=== PATIENT | female | born 1945 | race Caucasian/White ===

== ENCOUNTER 2018-08-20 06:27 | Observation (INO) | payer MEDICARE, OTHER ==
[2018-08-19 13:23] LABS: BASOPHILS # (AUTO) 0.1 (0.0-0.1); BASOPHILS % 0.4 % (0.0-1.0); EOSINOPHILS % 0.3 % (0.0-6.0); HEMATOCRIT 40.3 % (34.2-44.1); HEMOGLOBIN 14.4 g/dL (12.0-16.0); LYMPHOCYTES # (AUTO) 0.9 (1.0-3.2); LYMPHOCYTES % 8.2 % (18.0-39.1); MEAN CORPUSCULAR HEMOGLOBIN 32.2 pg (28-32); MEAN CORPUSCULAR HGB CONC 35.7 g/dL (31-35); MEAN CORPUSCULAR VOLUME 90.2 fL (81-99); NEUTROPHILS # (AUTO) 9.1 (2.1-6.9); NEUTROPHILS % 81.5 % (38.7-80.0); PLATELET COUNT 297 x10e3/uL (140-360); RED BLOOD COUNT 4.47 x10e6/uL (3.6-5.1)
[2018-08-19 13:37] LABS: INR 0.96; PROTHROMBIN TIME 13.3 seconds (11.9-14.5)
[2018-08-19 13:38] LABS: PARTIAL THROMBOPLASTIN TIME 32.7 seconds (23.8-35.5)
[2018-08-19 13:44] LABS: ANION GAP 14.3 mmol/L (8-16); BLOOD UREA NITROGEN 9 mg/dL (7-26); BUN/CREATININE RATIO 11 (6-25); CALCIUM 9.8 mg/dL (8.4-10.2); CARBON DIOXIDE 26 mmol/L (22-29); CHLORIDE 90 mmol/L (98-107); CREATININE, SERUM 0.82 mg/dL (0.57-1.11); EST GLOMERULAR FILTRATION RATE > 60 ML/MIN (60-); GLUCOSE 89 mg/dL (74-118); POTASSIUM 3.3 mmol/L (3.5-5.1); SODIUM 127 mmol/L (136-145)
--- NOTE | 2018-08-19 14:05 | Diagnostic Imaging Report ---
EXAMINATION: PA and lateral views of the chest. COMPARISON: None CLINICAL HISTORY: Preoperative study for spinal surgery DISCUSSION: Lines/tubes: None. Lungs: The lungs are well inflated and clear. There is no evidence of pneumonia or pulmonary edema. Pleura: There is no pleural effusion or pneumothorax. Heart and mediastinum: The cardiomediastinal silhouette is normal. Bones and soft tissues: No acute bony abnormalities. Cervical spine fusion hardware partially visualized. Right upper quadrant surgical clips likely reflect prior cholecystectomy. IMPRESSION: No acute cardiopulmonary abnormalities. Signed by: Dr. Dragan Rodriguez M.D. on 08/19/2018 2:01 PM
[~2018-08-20] VITALS: Ht 160 cm; Wt 66.2 kg
[~2018-08-20 06:27] MED LIST: DETROL LA4 MG PO; DEXILANT60 MG PO; HYDROCHLOROTHIA25 MG PO; LEVOTHYROXINE75 MCG PO; LEXAPRO10 MG PO; LISINOPRIL-HCT1 EAC1; MELOXICAM7.5 MG PO; METHOCARBAMOL750 MG PO; METOCLOPRAMIDE10 MG PO; NORCO 7.5-3251 EACH PO; RESPERIDONE PO; SIMVASTATIN40 MG PO; SYNTHROID75 MCG PO; VESICARE5 MG PO; ZESTRIL10 MG PO; ZETIA10 MG PO
--- OUTSIDE RECORDS SUMMARY | 2018-08-20 06:31 | XMS REPORT | Encounter Summary ---
Author Organization Unknown Address [address] [place] [address] Phone [phone] Care Team Providers Care Upper Leather Cutter Name Role Phone Dr. Ajit Lemos 3 [phone] Roger Faustin MD 107 [phone] Eliecer Meyer MD 109 [phone] Dora Pickens OD 111 [phone] Tanja Sánchez MD 126 [phone] Reason for Visit Left leg problem; Left low back pain Instructions 1. Spinal stenosis of lumbar region neurosurgery referral MRI, lumbar spine, w/o contrast 2. Sciatica tramadol 50 mg tablet 3. Pain in left lower limb meloxicam 15 mg tablet methocarbamol 500 mg tablet 4. Body mass index 25-29 - overweight learning about healthy weight Discussion Note: None recorded. Plan of Care Reminders Provider Appointments Est Patient 08/17/2018 12:00PM Ivette Batista MD Work in Same Day 12/31/2018 2:00PM Ajit Jacob MD Lab None recorded. Referral Neurosurgery Referral 08/10/2018 Eliecer Meyer MD Procedures None recorded. Surgeries None recorded. Imaging MRI, Lumbar Spine, W/o Contrast 08/10/2018 [facility] Medications Name Start Date clobetasol 0.05 % scalp solution BID cranberry extract 250 mg capsule 250 mg by oral route. dexlansoprazole 60 mg capsule,biphase delayed release 60 mg by oral route. ezetimibe 10 mg tablet 10 mg by oral route. lisinopril 20 mg-hydrochlorothiazide 25 mg tablet TAKE 1 TABLET(S) EVERY DAY BY ORAL ROUTE DIRECTED FOR 90 DAYS. meloxicam 15 mg tablet TAKE 1 TABLET BY MOUTH EVERY DAY NEEDED take with food methocarbamol 500 mg tablet Take 1 tablet every 6 hours by oral route as needed for 10 days. metoclopramide 10 mg tablet Take 1 tablet 4 times a day by oral route. simvastatin 40 mg tablet TAKE 1 TABLET(S) EVERY DAY BY ORAL ROUTE FOR 90 DAYS. Synthroid 75 mcg tablet Take 75 micrograms every day by oral route for 90 days. tramadol 50 mg tablet Take 1 tablet every 6 hours by oral route as needed for 10 days. Vesicare 10 mg tablet Take 1 tablet every day by oral route for 90 days. Medications Administered None recorded. Vitals Height Weight BMI Blood Pressure 5 ft 4.5 in 155 lbs 26.2 kg/m2 138/86 mm[Hg] Lab Results None recorded. Allergies Code Code System Name Reaction Severity Status Onset 90 RxNorm Quinine Active Problems Name Status Onset Date Source Hypothyroidism Active 01/11/2016 Hyperlipidemia Active 01/11/2016 Hypertensive Disorder Active 01/11/2016 Gastroesophageal Reflux Disease Active 01/11/2016 Osteoarthritis Active 01/11/2016 Urinary Incontinence Active 01/11/2016 Paronychia Active External Procedures Date Name Performed by 04/21/2014 Colonoscopy Information not available 04/21/1984 Hysterectomy (Total) Information not available 08/10/2018 MRI, Lumbar Spine, W/o Contrast [facility] [address] [place] [address] (Work Place) Vaccine List Vaccine Type influenza, high dose seasonal 02/21/20160.5 mL 12/26/20160.5 mL 01/05/20180.5 mL influenza, injectable, quadrivalent 12/20/2014 MMR 04/21/1950 pneumococcal conjugate PCV 13 12/26/20160.5 mL pneumococcal polysaccharide PPV23 06/30/20180.5 mL pneumococcal, unspecified formulation 04/21/2014 Tdap 04/21/2014 zoster 04/21/2014 zoster subunit 04/06/2018 06/30/20180.5 mL Social History Smoking Status Former Smoker Past Encounters 08/10/2018 Spinal Stenosis of Lumbar Region; Sciatica; Pain in Left Lower Limb; Body Mass Index 25-29 - Overweight Ivette Batista MD: [address] [place] [address], Ph. History of Present Illness Lower Leg Reported By: Patient HPI: Location: left, posterior, lateral, deep, superficial; left sciatica pain from buttock to posterior/lateral leg with left anterior larsen pain. Quality: aching, sharp, deep; numb feeling ant larsen on leftcertain movements cause sharp, shooting pain down left leg. Severity: moderate, severe, pain level 3/10, worst pain 20/10. Duration: date of onset:, 10 days, continuous since onset. Timing: acute, abrupt, recurrent. Context: cannot identify, atraumatic. Alleviating Factors: sitting, rest, OTC medication, narcotics, NSAIDs, previous surgery. Aggravating Factors: standing, lying down, walking, ROM, weight bearing, exercise, upstairs, downstairs, morning, nighttime. Associated Symptoms: no redness, no warmth, no ecchymosis, no catching/locking, no popping/clicking, no buckling, no grinding, no instability, no radiation down leg, no drainage, no fever, no chills, no change in bowel/bladder habits, weakness, numbness, radiation down leg. Previous Surgery: surgical procedure:, date:. Prior Imaging: x ray, MRI. Previous PT: none. Work Related: no Note:72yo female presents for evaluation of backpain. Started about two years ago with left sciatica. Had MRI and XR of lumbar spine showing spinal stenosis at L4-L5 and partial stenosis at L2-3. Was sent to neurosurgeon, Dr. Meyer and had spinal fusion with hardware at L4-5 for severe spinal stenosis & spondylolithesis about June 2016.<div>Pt has been doing well for past 2yrs since surgery.</div><div>Pt woke up on Friday, July 31, 2018 with left leg pain again. Constant pain in left leg with numbness from knee down to toes. Also has shooting pains from left hip to foot.</div><div>Went to urgent care on Friday, August 03 & was given muscle relaxers and prednisone pack (6days). Had some relief of pain. Taking Excedrin & old pain pills which eases pain. Worse with standing & sitting in soft care & hurts to walk. Okay to drive.</div> Review of Systems:ROS as noted in the HPI Review of Systems Comprehensive General Adult ROS Reported By: Patient Eyes: Eyes: no vision change Cardiovascular: Cardiovascular: no chest pain, no palpitations, no lightheadedness Respiratory: Respiratory: no cough, no wheezing, no shortness of breath Gastrointestinal: Gastrointestinal: no abdominal pain, no nausea, no vomiting, no constipation, no diarrhea, no dyspepsia Musculoskeletal: Musculoskeletal: no swelling in the extremities, muscle aches, muscle weakness, arthralgias/joint pain, back pain Integumentary: Skin: no rashes Neurologic: Neurologic: no loss of consciousness, no headaches Psychiatric: Psych: no depression, no alcohol abuse, no anxiety, no suicidal thoughts Physical Exam Lower Leg, General Adult Exam (male), Low Back Pain Reported By: Patient Constitutional: General Appearance: healthy-appearing, NAD Gait and Station: Appearance: normal gait Cardiovascular System: Heart Auscultation: RRR, normal S1, normal S2, no murmurs. Neck vessels: no carotid bruits. Pulses including femoral / pedal: normal throughout Skin: Inspection and palpation: no rash, no lesions Eyes: Lids and Conjunctivae: non-injected, no discharge. EOM: EOMI ENMT: Ears: TMs clear. Nose: no sinus tenderness. Lips, Teeth, and Gums: no mouth or lip ulcers. Oropharynx: moist mucous membranes Neck: Neck: supple, trachea midline. Thyroid: no enlargement, non-tender Lungs: Auscultation: breath sounds normal Musculoskeletal:: Joints, Bones, and Muscles: limited ROM, tenderness; no back pain or trochanteric bursitis. Tender under left buttock down posterior lateral leg to foot. Tender over left anterior larsen. Extremities: no edema Lumbar Spine: Bony Palpation of the Lumbar Spine: no tenderness of the spinous process. Soft Tissue Palpation on the Left: tenderness of the sciatic nerve. Passive Range of Motion: pain with motion Motor Strength: L1 Motor Strength on the Left: hip flexion iliopsoas 2/5
--- OUTSIDE RECORDS SUMMARY | 2018-08-20 06:31 | XMS REPORT ---
Author Author [facility] Address Unknown Phone Unavailable Care Team Providers Care General Helper Name Role Phone ACTRACHITO VERA Unavailable Unavailable Payers Payer Name Policy Type Policy Number Effective Date Expiration Date Problems This patient has no known problems. Allergies, Adverse Reactions, Alerts Allergy Name Allergy Type Status Severity Reaction(s) Onset Date Inactive Date Treating Clinician Comments artie Horton SV 2016-06-12 00:00:00 Medications This patient has no known medications. Results Test Description Test Time Test Comments Text Results Atomic Results Result Comments CHEST 2 VIEWS 2018-08-19 14:00:00 [facility] [address] [address] Patient Name: MARIANNA GREGORIO MR #: [id number] : 1945 Age/Sex: 72/F Req #: [id number] Adm Physician: Ordered by: CATRACHITO VERA MD Report #: [id number] Location: OR Room/Bed: Procedure: [id number] DX/CHEST 2 VIEWS Exam Date: 08/19/18 Exam Time: 1300 REPORT STATUS: Signed EXAMINATION: PA and lateral views of the chest. COMPAR CHRISTY: None CLINICAL HISTORY: Preoperative study for spinal surgery DISCUSSION: Lines/tubes: None. Lungs: The lungs are well inflated and clear. There is no evidence of pneumonia or pulmonary edema. Pleura: There is no pleural effusion or pneumothorax. Heart and mediastinum: The cardiomediastinal silhouette is normal. Bones and soft tissues: No acute bony abnormalities. Cervical spine fusion hardware partially visualized. Right upper quadrant surgical clips likely reflect prior cholecystectomy. IMPRESSION: No acute cardiopulmonary abnormalities. Signed by: Dr. Tabatha Manuel M.D. on 08/19/2018 2:01 PM Dictated By: TABATHA MANUEL MD 1401 Transcribed By: JOSE on 08/19/18 1401 COPY TO: CATRACHITO VERA MD
--- OUTSIDE RECORDS SUMMARY | 2018-08-20 06:31 | XMS REPORT | Encounter Summary ---
Author Organization Unknown Address [address] [place] [address] Phone [phone] Care Team Providers Care Vac Press Operator Name Role Phone Dr. Ajit Lemos 3 [phone] Roger Faustin MD 107 [phone] Eliecer Meyer MD 109 [phone] Dora Pickens OD 111 [phone] Tanja Sánchez MD 126 [phone] Reason for Visit Urinary incontinence; Hypothyroidism Instructions 1. Hypothyroidism levothyroxine 75 mcg tablet TSH, serum or plasma T3, free, serum or plasma T4, free, serum 2. Urinary incontinence Vesicare 10 mg tablet 3. Body mass index 25-29 - overweight learning about healthy weight 4. Immunization Shingrix Adjuvant Component (PF) intramuscular suspension Pneumovax 23 25 mcg/0.5 mL injection syringe 5. Senile purpura 6. Peripheral vascular disease Discussion Note: None recorded. Plan of Care Reminders Provider Appointments Work in Same Day 12/31/2018 2:00PM Ajit Jacob MD Lab TSH, Serum or Plasma 06/30/2018 [facility] T3, Free, Serum or Plasma 06/30/2018 [facility] T4, Free, Serum 06/30/2018 [facility] Referral None recorded. Procedures None recorded. Surgeries None recorded. Imaging None recorded. Medications Name Start Date clobetasol 0.05 % scalp solution BID cranberry extract 250 mg capsule 250 mg by oral route. dexlansoprazole 60 mg capsule,biphase delayed release 60 mg by oral route. ezetimibe 10 mg tablet 10 mg by oral route. hydrochlorothiazide 12.5 mg capsule 25 mg by oral route. levothyroxine 75 mcg tablet Take 75 micrograms every day by oral route for 90 days. lisinopril 20 mg tablet 20 mg by oral route. lisinopril 20 mg-hydrochlorothiazide 25 mg tablet TAKE 1 TABLET(S) EVERY DAY BY ORAL ROUTE DIRECTED FOR 90 DAYS. meloxicam 15 mg tablet TAKE 1 TABLET BY MOUTH EVERY DAY NEEDED metoclopramide 10 mg tablet Take 1 tablet 4 times a day by oral route. simvastatin 40 mg tablet 40 mg by oral route. Vesicare 10 mg tablet Take 1 tablet every day by oral route for 90 days. Medications Administered None recorded. Vitals Height Weight BMI Blood Pressure 5 ft 4.5 in 155 lbs 26.2 kg/m2 136/74 mm[Hg] Lab Results None recorded. Allergies Code Code System Name Reaction Severity Status Onset 9070 RxNorm Quinine Active 06/12/2016 Problems Name Status Onset Date Source Hypothyroidism Active 01/11/2016 Hyperlipidemia Active 01/11/2016 Hypertensive Disorder Active 01/11/2016 Gastroesophageal Reflux Disease Active 01/11/2016 Osteoarthritis Active 01/11/2016 Urinary Incontinence Active 01/11/2016 Paronychia Active External Procedures Date Name Performed by 04/21/2014 Colonoscopy Information not available 06/10/2018 MAMMO, Diagnostic, Digital, Bilateral [facility] [address] [place] [address] (Work Place) 06/10/2018 US, Breast [facility] [address] [place] [address] (Work Place) Vaccine List Vaccine Type influenza, high dose seasonal 02/21/20160.5 mL 12/26/20160.5 mL 01/05/20180.5 mL influenza, injectable, quadrivalent 12/20/2014 MMR 04/21/1950 pneumococcal conjugate PCV 13 12/26/20160.5 mL pneumococcal polysaccharide PPV23 06/30/20180.5 mL pneumococcal, unspecified formulation 04/21/2014 Tdap 04/21/2014 zoster 04/21/2014 zoster subunit 04/06/2018 06/30/20180.5 mL Social History Smoking Status Former Smoker Past Encounters 06/30/2018 Hypothyroidism; Urinary Incontinence; Body Mass Index 25-29 - Overweight; Immunization; Senile Purpura; Peripheral Vascular Disease Ajit Jacob MD: [address] [place] [address], Ph. History of Present Illness Note:Coming for f/u on hypothyroidism and urinary incontinence. Levothyroxine was decreased to 75 mcgs daily on last visit due to low tsh level in 0.029. Pt is doing well. She denies fatigue, abnormal weight gain, constipation or memory problems. Urge incontinence has remained stable with vesicare. Denies side effects with meds. Review of Systems Comprehensive General Adult ROS Reported By: Patient Eyes: Eyes: no vision change Cardiovascular: Cardiovascular: no chest pain, no palpitations, no lightheadedness Respiratory: Respiratory: no cough, no wheezing, no shortness of breath Gastrointestinal: Gastrointestinal: no abdominal pain, no nausea, no vomiting, no constipation, no diarrhea, no dyspepsia Musculoskeletal: Musculoskeletal: no muscle aches, no swelling in the extremities Integumentary: Skin: no rashes Neurologic: Neurologic: no loss of consciousness, no headaches Psychiatric: Psych: no depression, no alcohol abuse, no anxiety, no suicidal thoughts Physical Exam General Adult Exam (male) Reported By: Patient Constitutional: General Appearance: healthy-appearing. Level of Distress: NAD Psychiatric: Insight: good judgement. Mental Status: active and alert, normal mood, normal affect. Orientation: to time, to place, to person. Memory: recent memory normal, remote memory normal Eyes: Lids and Conjunctivae: non-injected, no discharge Neck: Neck: trachea midline. Thyroid: no enlargement, non-tender Lungs: Auscultation: breath sounds normal Cardiovascular: Heart Auscultation: RRR, normal S1, normal S2, no murmurs. Neck vessels: no carotid bruits Abdomen: Inspection and Palpation: soft, non-distended, no tenderness, no guarding Musculoskeletal:: Motor Strength and Tone: normal, normal tone. Joints, Bones, and Muscles: normal movement of all extremities. Extremities: no edema Neurologic: Gait and Station: normal gait Skin: Inspection and palpation: ; ecchymoses in forearms
[2018-08-20] MEDS ORDERED: THROMBIN FOR SOLN 5,000 UNIT VIAL ONE (06:35)
[2018-08-20] MEDS ORDERED: BACITRACIN 50,000 UNIT VIAL ONE (06:35)
[2018-08-20] MEDS ORDERED: GELATIN SPONGE 12-7MM ONE (06:35)
[2018-08-20] MEDS ORDERED: BUPIVACAINE 0.5%/EPI 30 ML SDV INJ ONE (06:35)
[2018-08-20] MEDS ORDERED: SODIUM CHLORIDE 0.9% 1000ML 1,000 ML ONE (08:04)
[2018-08-20] MEDS ORDERED: CEFAZOLIN SOD 1 GM/NS 50ML 50 ML IV ONE (08:22)
[2018-08-20 08:34] LABS: ANION GAP 15.1 mmol/L (8-16); BLOOD UREA NITROGEN 7 mg/dL (7-26); BUN/CREATININE RATIO 10 (6-25); CALCIUM 10.4 mg/dL (8.4-10.2); CARBON DIOXIDE 28 mmol/L (22-29); CHLORIDE 90 mmol/L (98-107); CREATININE, SERUM 0.72 mg/dL (0.57-1.11); EST GLOMERULAR FILTRATION RATE > 60 ML/MIN (60-); GLUCOSE 101 mg/dL (74-118); POTASSIUM 3.1 mmol/L (3.5-5.1); SODIUM 130 mmol/L (136-145)
[2018-08-20] MEDS ORDERED: MORPHINE SULFATE INJ 4 MG/ML INJ 1ML ONE (10:33)
--- NOTE | 2018-08-20 12:36 | Diagnostic Imaging Report ---
EXAM: Intraoperative crosstable lateral lumbar spine radiograph-1 view INDICATION: Evaluation of surgical level. COMPARISON: None FINDINGS: Limited portable radiograph demonstrates markers overlying the upper aspect of the L3 vertebral body. Status post posterior decompression and fusion from L4 through L5. Limited visualization of the hardware, which appears grossly intact. There is grade 1 anterolisthesis of L4 on L5. There is minimal retrolisthesis of L2 on L3. No evidence of acute displaced fracture. IMPRESSION: Intraoperative lumbar spine radiograph as above. Signed by: Dr. Crystal Holland MD on 08/20/2018 12:33 PM
[2018-08-20] MEDS ORDERED: LABETALOL HCL 20 ML ONE (13:11)
[2018-08-20] MEDS ORDERED: HYDROCODONE/APAP 7.5MG-325MG 1 EA TAB PO SCH (13:15)
[2018-08-20] MEDS ORDERED: HYDROMORPHONE 2MG/ML 2 MG/ML ML IV PRN (13:15)
[2018-08-20] MEDS ORDERED: ONDANSETRON HCL INJ 2MG/ML 2ML 2 MG/ML VIAL IV PRN (13:15)
[2018-08-20] MEDS ORDERED: PROMETHAZINE HCL (IM) 25 MG/ML VIAL IM PRN (13:15)
[2018-08-20] MEDS ORDERED: MORPHINE SULFATE 5 MG/ML VIAL IM PRN (13:15)
[2018-08-20] MEDS ORDERED: ACETAMINOPHEN 325 MG TAB PO PRN (13:15)
[2018-08-20] MEDS ORDERED: OXYCODONE/ACETAMINOPHEN 5-325 1 EACH TABLET PO PRN (13:15)
[2018-08-20] MEDS ORDERED: CARISOPRODOL 350 MG TAB PO PRN (13:15)
[2018-08-20] MEDS ORDERED: MAGNESIUM/ALUMINUM/SIMETHICONE 30 ML UDC PO PRN (13:15)
[2018-08-20] MEDS ORDERED: CEPACOL SORE THROAT LOZENGES PO PRN (13:15)
[2018-08-20] MEDS ORDERED: FENTANYL CITRATE/PF 100MCG/2 ML INJ ONE ×2 (13:32→19:21)
[2018-08-20] MEDS ORDERED: KETOROLAC TROMETHAMINE 30 MG/ML VIAL ONE (14:30)
[2018-08-20] MEDS ORDERED: DEXAMETHASONE SOD PHOS INJ 4 MG/ML VIAL ONE (14:30)
[2018-08-20] MEDS ORDERED: ROCURONIUM BROMIDE 10 MG/ML 5ML VIAL ONE (14:30)
[2018-08-20] MEDS ORDERED: MORPHINE SULFATE INJ 4 MG/ML INJ 1ML IM PRN (14:30)
[2018-08-20] MEDS ORDERED: ONDANSETRON HCL INJ 2MG/ML 2ML 2 MG/ML VIAL ONE (14:30)
[2018-08-20] MEDS ORDERED: LIDOCAINE HCL 2% LOCAL INJ 5 ML SDV VIAL INJ ONE (14:30)
[2018-08-20] MEDS ORDERED: SEVOFLURANE INHAL SOLN 250 ML PEN BTL ONE (14:30)
[2018-08-20] MEDS ORDERED: PROPOFOL IV EMULSION 10 MG/ML 20 ML VIAL ONE (14:30)
[2018-08-20 14:37] VITALS: BP 183/86
[2018-08-20 15:57] VITALS: BP 163/74
[2018-08-20 15:59] VITALS: BP 163/74
[2018-08-20 16:12] VITALS: BP 163/74
[2018-08-20] MEDS: LACTATED RINGER'S 1,000 ML IV SCH ×2 (16:16→21:21)
[2018-08-20] MEDS: CEFAZOLIN SOD 1 GM/NS 50ML 50 ML IV SCH ×2 (16:16→21:39)
[2018-08-20] MEDS: METOCLOPRAMIDE HCL 10 MG TAB PO SCH ×2 (18:22→21:39)
[2018-08-20] MEDS ORDERED: MIDAZOLAM HCL 2 MG/2 ML VIAL ONE (19:21)
[2018-08-20 19:30] VITALS: BP 163/74
--- NOTE | 2018-08-20 19:41 | Operative Report ---
DATE OF PROCEDURE: 08/20/2018 SURGEON: Eliecer Meyer MD PREOPERATIVE DIAGNOSIS: Left L3-4 disk herniation with inferior migration of the extruded disk fragment with radiculopathy, M5 1.16. POSTOPERATIVE DIAGNOSIS: Left L3-4 disk herniation with inferior migration of the extruded disk fragment with radiculopathy, M5 1.16. PROCEDURE PERFORMED: Left L3-4 laminotomy, medial facetectomy, and microsurgical diskectomy, [address]. ANESTHESIA: General. INDICATIONS: The patient is a 72-year-old woman who presents with left L3-4 disk herniation with inferior migration of the extruded disk fragment into the left L3 lateral recess. This is above the level of her previous instrumented L4-5 fusion. She has a severe left L4 radiculopathy. She was seen in operating room for microsurgical decompression without fusion. PROCEDURE IN DETAIL: After induction of general anesthesia, the patient was placed on the operating table in prone position over Homar frame. Lumbar region was prepped and draped in sterile fashion. A preoperative x-ray was obtained and a small midline incision was created just superior to her previous scar. The lumbar fascia was opened in left of midline and a subperiosteal dissection was carried out to expose the left-sided L3 and L4 lamina and medial aspect of the facet joint. A second x-ray confirmed correct localization. The operating microscope was brought in. A high-speed drill equipped with brittany bur was used to drill the inferior aspect of the lamina of L3 and the medial rim of the L3-4 facet joint and the medial and superior rim of the residual lamina of L4. The ligamentum flavum was resected. The dural sac and L4 nerve roots were exposed. A ball probe was passed ventral to the dura and directed inferiorly under the L4 nerve root and used to retrieve the edge of the extruded disk fragment, which was grasped with a micropituitary rongeur and removed. This maneuver was repeated numerous times and numerous additional fragments of extruded and migrated disk were retrieved and removed from L4 lateral recess until the nerve root became fully decompressed. The opening into the anulus of disk was enlarged with #11 blade and loose contents of the discs were evacuated with curettes and pituitary rongeurs. Meticulous hemostasis was secured. Retraction was removed. The lumbar fascia was closed with 0 Vicryl suture. Subcutaneous layer was closed with 2-0 Vicryl sutures. The skin was closed with 3-0 Monocryl sutures in subcuticular fashion. Steri-Strips and dressing were applied. The patient was awakened, extubated, taken to postanesthesia care unit in stable condition. No intraoperative complications were encountered. ESTIMATED BLOOD LOSS: 10 cc. Eliecer Meyer MD PP/CYNTHIA /[id number]
[2018-08-20 20:00] VITALS: BP 145/71
[2018-08-20] MEDS ORDERED: SIMVASTATIN 40 MG TAB PO SCH (21:00)
[2018-08-20] MEDS ORDERED: ZOLPIDEM TARTRATE 5 MG TAB PO PRN (21:00)
[2018-08-21] VITALS: BP 173/89
[2018-08-21 04:00] VITALS: BP 144/74
[2018-08-21] MEDS: CEFAZOLIN SOD 1 GM/NS 50ML 50 ML IV SCH (05:25)
[2018-08-21] MEDS: LACTATED RINGER'S 1,000 ML IV SCH (05:26)
[2018-08-21] MEDS ORDERED: LEVOTHYROXINE SODIUM 75 MCG TAB PO SCH (06:00)
--- NOTE | 2018-08-21 06:06 | NUR ---
RN changed dressing on the lower back using small ABD dressing and reinforced with paper tape. Extra supplies provided for the patient to take home with for today. No signs/symptoms of infection noted. RN educated the patient/caregiver on s/s of infection and when to report to MD. Verbalized understanding.
--- NOTE | 2018-08-21 07:28 | NUR ---
RECEIVED PATIENT AWAKE IN BED, NO SIGNS OF DISTRESS AT THIS TIME. BED LOW, WHEELS LOCKED, SIDE RAILS X2, CALL LIGHT IN REACH. WILL CONTINUE TO MONITOR.
[2018-08-21 07:45] VITALS: BP 156/76
[2018-08-21] MEDS: METOCLOPRAMIDE HCL 10 MG TAB PO SCH (08:57)
[2018-08-21] MEDS ORDERED: LISINOPRIL 20 MG TAB PO SCH (09:00)
[2018-08-21] MEDS ORDERED: PANTOPRAZOLE SOD 40 MG TABEC PO SCH (09:00)
[2018-08-21] MEDS ORDERED: EZETIMIBE 10 MG TAB PO SCH (09:00)
[2018-08-21] MEDS ORDERED: ESCITALOPRAM OXALATE 10 MG TAB PO SCH (09:00)
[2018-08-21] MEDS ORDERED: MELOXICAM 7.5 MG TAB PO SCH (09:00)
[2018-08-21] MEDS ORDERED: SOLIFENACIN SUCCINATE 5 MG TAB PO SCH (09:00)
[2018-08-21 09:49] VITALS: BP 156/76
[2018-08-21] MEDS ORDERED: NORCO 7.5-3251 EACH PO (10:00)
--- NOTE | 2018-08-21 10:20 | NUR ---
REMOVED PATIENTS IV. CATHETER TIP INTACT AND PRESSURE DRESSING APPLIED.
--- NOTE | 2018-08-21 10:27 | NUR ---
PATIENT DISCHARGED FROM FACILITY. PATIENT GATHERED ALL PERSONAL BELONGINGS, DISCHARGE INSTRUCTIONS, AND PRESCRIPTIONS. LEFT UNIT IN WHEELCHAIR AND WENT HOME VIA PRIVATE AUTO. NO SIGNS OF DISTRESS WHEN LEAVING FACILITY.
--- NOTE | 2018-08-21 13:01 | NUR ---
VICTORIA EXPLAINED TO PT, SIGNED BY PT AND PLACED IN CHART COPY TO PT IN CARE TRANSITION FOLDER
== END 2018-08-21 10:24 | disposition home or self-care (01) ==
LOC: OR 06:27 → PACU V 13:02 → MED/SURG 14:17
PROVIDERS: ADMIT Neurological Surgery; ATTEND Neurological Surgery
DX: M51.16 Intervertebral disc disorders with radiculopathy, lumbar region (principal); I10 Essential (primary) hypertension; M19.90 Unspecified osteoarthritis, unspecified site; E78.5 Hyperlipidemia, unspecified; E03.9 Hypothyroidism, unspecified; M85.80 Other specified disorders of bone density and structure, unspecified site
CPT/HCPCS: 36415 ×2; 63030; 71046; 72020; 80048 ×2; 85025; 85610; 85730; 86850; 86900; 88304; 93005; G0378 ×2; J0690 ×2; J1100; J1885; J2001; J2250; J2270; J2405; J2704; J7030; J7121; J8597 ×2; S0164

== ENCOUNTER → 2018-09-16 | Outpatient (CLI) | payer MEDICARE, OTHER ==
[~2018-09-16] MED LIST changes: +CITALOPRAM HBR20 MG PO; +GABAPENTIN300 MG PO; +IOPAMIDOL 370 MG/ML 200 ML INFUS..BTL INJ ONE; +LISINOPRIL-HCT1 EAC1 PO; +LISINOPRIL10 MG PO; +REGLAN10 MG; +SODIUM CHLORIDE 0.9% 50ML 50 ML ONE
[2018-09-16 13:30] LABS: BLOOD UREA NITROGEN < 5 mg/dL (7-26); CREATININE, SERUM 0.66 mg/dL (0.57-1.11); EST GLOMERULAR FILTRATION RATE > 60 ML/MIN (60-)
[2018-09-16 13:32] LABS: BUN/CREATININE RATIO 8 (6-25)
--- NOTE | 2018-09-16 14:26 | Diagnostic Imaging Report ---
EXAMINATION: CT of the abdomen and pelvis with contrast. TECHNIQUE: Spiral CT images of the abdomen and pelvis were performed from the lung bases to the lesser trochanters after the intravenous administration of 100 cc Isovue-370. Coronal and sagittal reformatted images were obtained. COMPARISON: None. CLINICAL HISTORY:Blood in stool, abdominal pain DISCUSSION: ABDOMEN/PELVIS: LOWER THORAX:Bandlike atelectasis in the right lower lobe. Otherwise unremarkable. HEPATOBILIARY: No focal hepatic lesions. No intra-or extrahepatic biliary ductal dilation. Prominence of the common bile duct is likely related to reservoir effect status post cholecystectomy. Gallbladder has been removed with metallic clips in the gallbladder fossa. SPLEEN: No splenomegaly. PANCREAS: No focal masses or ductal dilatation. ADRENALS: No adrenal nodules. KIDNEYS/URETERS: Subcentimeter exophytic hypoattenuating lesions protecting from the upper pole of the left kidney is too small to further characterize but likely to represent a small cyst. No hydronephrosis, calculi, or gross mass lesions. PELVIC ORGANS/BLADDER: The urinary bladder is unremarkable. Uterus is not identified and has presumably been removed. No adnexal mass. PERITONEUM/RETROPERITONEUM: No free air or fluid. LYMPH NODES: No pelvic sidewall, retroperitoneal, or mesenteric lymphadenopathy. VESSELS: Atherosclerotic calcification of the abdominal aorta and major branch vessels. 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 GI TRACT: The majority of the colon is decompressed and poorly evaluated. Mild mesocolic inflammatory stranding along the descending and sigmoid colon. The appendix is normal. No small bowel dilatation to suggest obstruction. BONES AND SOFT TISSUE: No osseous destructive lesions. Post L4 laminectomy with L4-L5 transpedicular fusion and intervertebral disc spacer placement. Intact surgical hardware. No focal soft tissue abnormalities. IMPRESSION: Mild mesocolic fat stranding along the descending and sigmoid colon suggests infectious or inflammatory colitis. No florentin perforation or drainable fluid collection. 8 mm saccular splenic artery aneurysm should be assessed for stability by CTA of the abdomen in one year. Mild prominence of the common bile duct is likely a consequence of cholecystectomy. Postsurgical changes of the lumbar spine. Signed by: Dr. Dragan Rodriguez M.D. on 09/16/2018 2:22 PM
== END ==
LOC: CT 12:41
PROVIDERS: ATTEND Internal Medicine Gastroenterology
DX: R10.9 Unspecified abdominal pain (principal); K92.1 Melena
CPT/HCPCS: 36415; 74177; 82565; 84520; Q9967

== ENCOUNTER 2018-09-17 13:00 | Outpatient (RCR) | payer MEDICARE, OTHER ==
[~2018-09-17 13:00] MED LIST changes: -CITALOPRAM HBR20 MG PO; -IOPAMIDOL 370 MG/ML 200 ML INFUS..BTL INJ ONE; -LISINOPRIL-HCT1 EAC1 PO; -LISINOPRIL10 MG PO; -SODIUM CHLORIDE 0.9% 50ML 50 ML ONE
== END 2018-09-18 ==
LOC: PT 13:00
PROVIDERS: ATTEND Neurological Surgery
DX: M51.16 Intervertebral disc disorders with radiculopathy, lumbar region (principal)

== ENCOUNTER 2018-09-20 22:59 | Observation (INO) | payer MEDICARE, OTHER ==
[~2018-09-20] VITALS: Ht 160 cm; Wt 76.7 kg
--- OUTSIDE RECORDS SUMMARY | 2018-09-20 23:04 | XMS REPORT | Encounter Summary ---
Author Organization Unknown Address [address] [place] [address] Phone [phone] Care Team Providers Care Place Change Roof Bolter Name Role Phone Dr. Ajit Lemos 3 [phone] Roger Faustin MD 107 [phone] Eliecer Meyer MD 109 [phone] Dora Pickens OD 111 [phone] Tanja Sánchez MD 126 [phone] Reason for Visit Bilateral low back pain Instructions 1. Spinal stenosis of lumbar region hydrocodone 7.5 mg-acetaminophen 325 mg tablet methylprednisolone 4 mg tablets in a dose pack 2. Body mass index 25-29 - overweight learning about healthy weight 3. Mild recurrent major depression depression treatment: care instructions citalopram 20 mg tablet Discussion Note: None recorded. Plan of Care Reminders Provider Appointments Work in Same Day 12/31/2018 2:00PM Ajit Jacob MD Lab None recorded. Referral None recorded. Procedures None recorded. Surgeries None recorded. Imaging None recorded. Medications Name Start Date citalopram 20 mg tablet Take 1 tablet every day by oral route. clobetasol 0.05 % scalp solution BID cranberry extract 250 mg capsule 250 mg by oral route. dexlansoprazole 60 mg capsule,biphase delayed release 60 mg by oral route. ezetimibe 10 mg tablet 10 mg by oral route. hydrocodone 7.5 mg-acetaminophen 325 mg tablet Take 1 tablet every 6 hours by oral route for 7 days. lisinopril 20 mg-hydrochlorothiazide 25 mg tablet TAKE 1 TABLET(S) EVERY DAY BY ORAL ROUTE DIRECTED FOR 90 DAYS. meloxicam 15 mg tablet TAKE 1 TABLET BY MOUTH EVERY DAY NEEDED take with food methocarbamol 500 mg tablet Take 1 tablet every 6 hours by oral route as needed for 10 days. methylprednisolone 4 mg tablets in a dose pack Take 1 dose pk every day by oral route. metoclopramide 10 mg tablet Take 1 tablet 4 times a day by oral route. simvastatin 40 mg tablet TAKE 1 TABLET(S) EVERY DAY BY ORAL ROUTE FOR 90 DAYS. Synthroid 75 mcg tablet Take 75 micrograms every day by oral route for 90 days. Vesicare 10 mg tablet Take 1 tablet every day by oral route for 90 days. Medications Administered None recorded. Vitals Height Weight BMI Blood Pressure 5 ft 4.5 in 149.6 lbs 25.3 kg/m2 (1) 164/90 mm[Hg] (2) 156/88 mm[Hg] Lab Results None recorded. Allergies Code Code System Name Reaction Severity Status Onset 9070 RxNorm Quinine Active Problems Name Status Onset Date Source Hypothyroidism Active 01/11/2016 Hyperlipidemia Active 01/11/2016 Hypertensive Disorder Active 01/11/2016 Gastroesophageal Reflux Disease Active 01/11/2016 Osteoarthritis Active 01/11/2016 Urinary Incontinence Active 01/11/2016 Spinal Stenosis of Lumbar Region Active 08/24/2018 Paronychia Active Procedures Date Name Performed by 04/21/2014 Colonoscopy Information not available 04/21/1984 Hysterectomy (Total) Information not available 08/10/2018 MRI, Lumbar Spine, W/o Contrast [facility] [address] [place] [address] (Work Place) Vaccine List Vaccine Type influenza, high dose seasonal 02/21/20160.5 mL 12/26/20160.5 mL 01/05/20180.5 mL influenza, injectable, quadrivalent 12/20/2014 MMR 04/21/1950 pneumococcal conjugate PCV 13 12/26/20160.5 mL pneumococcal polysaccharide PPV23 06/30/20180.5 mL pneumococcal, unspecified formulation 04/21/2014 Tdap 04/21/2014 zoster 04/21/2014 zoster subunit 04/06/2018 06/30/20180.5 mL Social History Smoking Status Former Smoker Past Encounters 08/24/2018 Spinal Stenosis of Lumbar Region; Alcohol Consumption Screening; Body Mass Index 25-29 - Overweight; Gastroesophageal Reflux Disease; Hypertensive Disorder Ivette Batista MD: [address] [place] [address], Ph. 08/17/2018 Spinal Stenosis of Lumbar Region; Body Mass Index 25-29 - Overweight; Mild Recurrent Major Depression Ivette Batista MD: [address] [place] [address], Ph. 08/10/2018 Spinal Stenosis of Lumbar Region; Sciatica; Pain in Left Lower Limb; Body Mass Index 25-29 - Overweight Ivette Batista MD: [address] [place] [address], Ph. History of Present Illness Lower Leg [...] Work Related: no Note:72yo female presents for one week follow-up of severe backpain. Last visit 08/10/18 for evaluation of backpain. Since last visit, pt had MRI of lumbar spine on 08/12/18 - report reviewed with pt & she has copy of images from radiology to take to Dr Meyer, neurosurgeon tomorrow. MRI of lumbar spine shows new disc extrusion at L3-4 with moderate-severe spinal cord compression at the L4 level on the left.<div>Still with signficant pain. No bladder/bowel incontinence. No fever. Needs stronger pain medication - will increase from tramadol to hydrocodone 7.5mg q6-8hrs prn. Will try another Medrol dosepak to give pain relief from compressed nerve.</div><div>Refilled Celexa 20mg qd.
< div>
</div><div>Previously:</div><div>Pt woke up on Friday, July 31, 2018 with left leg pain again. Constant pain in left leg with numbness from knee down to toes. Also has shooting pains from left hip to foot.
</div><div><div> Started about two years ago with left sciatica. Had MRI and XR of lumbar spine s howing spinal stenosis at L4-L5 and partial stenosis at L2-3. Was sent to neuros urgeon, Dr. Meyer and had spinal fusion with hardware at L4-5 for severe spin al stenosis & spondylolisthesis about June 2016.</div></div></div> Review of Systems:ROS as noted in the [...]
--- OUTSIDE RECORDS SUMMARY | 2018-09-20 23:04 | XMS REPORT | Encounter Summary ---
Author Organization Unknown Address [address] [place] [address] Phone [phone] Care Team Providers Care Respiratory Services Manager Name Role Phone Dr. Ajit Lemos 3 [phone] Roger Faustin MD 107 [phone] Eliecer Meyer MD 109 [phone] Dora Pickens OD 111 [phone] Tanja Sánchez MD 126 [phone] Reason for Visit other - see typed reason Instructions 1. Spinal stenosis of lumbar region 2. Alcohol consumption screening learning about alcohol misuse 3. Body mass index 25-29 - overweight learning about healthy weight 4. Gastroesophageal reflux disease 5. Hypertensive disorder Discussion Note: None recorded. Plan of Care [...] BMI Blood Pressure 5 ft 4.5 in 151.2 lbs 25.6 kg/m2 (1) 162/76 mm[Hg] (2) 164/78 mm[Hg] Lab Results None recorded. Allergies Code [...] available 08/10/2018 MRI, Lumbar Spine, W/o Contrast [facility] [address] [place] [address] (Work Place) Vaccine List Vaccine [...] Reflux Disease; Hypertensive Disorder Ivette Batista MD: [address] [place] [address], Ph. 08/17/2018 Body Mass Index 25-29 - Overweight; Spinal Stenosis of Lumbar Region; Mild Recurrent Major Depression Ivette Batista MD: [address] [place] [address], Ph. 08/10/2018 Spinal Stenosis of Lumbar Region; Sciatica; Pain in Left Lower Limb; Body Mass Index 25-29 - Overweight Ivette Batista MD: [address] [place] [address], Ph. History of Present Illness Note:72yo female presents for evaluation of backpain. Pt returns for one-week follow-up. Was seen last Friday08/17/18 in office & had f/u evaluation with neurosurgeon, Dr Meyer the following day on Friday. Pt had surgery last , August 20, 2018 at [facility] & stayed overnight. Had significant spinal cord stenosis at L3-4 above level of prior laminectomy at L4- 5. Had discectomy at L3-L4. Since surgery, pt feels so much better. Very relieved to have relief of backpain. Pt has f/u appt on Friday with Dr Meyer for post-op visit & anticipates he will order PT at that time.<div>
<div> Pain level down to 1/10 in back, still with some numbness in left leg which Dr Peña echevarria said will take longer to resolve (up to 6mo)</div><div>
</div><div> Previously:</div><div><div>Pt woke up on Friday, July 31, 2018 with left leg pain again. Constant pain in left leg with numbness from knee down to toes. Also has shooting pains from left hip to foot.</div><div>Back issues tarted about two years ago with left sciatica. Had MRI and XR of lumbar spine showing spinal stenosis at L4-L5 and partial stenosis at L2-3. Was sent to neurosurgeon, Dr. Meyer and had spinal fusion with hardware at L4-5 for severe spinal stenosis & spondylolithesis about June 2016.</div></div></div> Review of Systems:ROS as [...] over left anterior larsen. Extremities: no edema Back: Thoracolumbar Appearance: ; see photo below of healing surgical site Lumbar Spine: Bony Palpation of the Lumbar Spine: no tenderness of the spinous process. Soft Tissue Palpation on the Left: tenderness of the sciatic nerve. Passive Range of Motion: pain with motion Motor Strength: L1 Motor Strength on the Left: hip flexion iliopsoas 2/5
[2018-09-20 23:20] LABS: BASOPHILS # (AUTO) 0.1 (0.0-0.1); EOSINOPHILS # (AUTO) 0.1 (0.0-0.4); EOSINOPHILS % 0.9 % (0.0-6.0); HEMATOCRIT 39.5 % (34.2-44.1); HEMOGLOBIN 14.1 g/dL (12.0-16.0); LYMPHOCYTES # (AUTO) 1.1 (1.0-3.2); LYMPHOCYTES % 11.2 % (18.0-39.1); MEAN CORPUSCULAR HGB CONC 35.7 g/dL (31-35); MEAN CORPUSCULAR VOLUME 89.6 fL (81-99); MONOCYTES # (AUTO) 0.6 (0.2-0.8); MONOCYTES % 5.8 % (4.4-11.3); NEUTROPHILS # (AUTO) 8.1 (2.1-6.9); NEUTROPHILS % 79.4 % (38.7-80.0); PLATELET COUNT 300 x10e3/uL (140-360); RED BLOOD COUNT 4.41 x10e6/uL (3.6-5.1); RED CELL DISTRIBUTION WIDTH 12.9 % (11.7-14.4)
[2018-09-20 23:40] LABS: ALANINE AMINOTRANSFERASE 23 IU/L (0-55); ALBUMIN 4.2 g/dL (3.5-5.0); ALBUMIN/GLOBULIN RATIO 1.3 (0.8-2.0); ALKALINE PHOSPHATASE 85 IU/L (40-150); ANION GAP 18.1 mmol/L (8-16); BLOOD UREA NITROGEN 5 mg/dL (7-26); BUN/CREATININE RATIO 7 (6-25); CARBON DIOXIDE 16 mmol/L (22-29); CHLORIDE 87 mmol/L (98-107); CREATININE, SERUM 0.69 mg/dL (0.57-1.11); EST GLOMERULAR FILTRATION RATE > 60 ML/MIN (60-); GLUCOSE 132 mg/dL (74-118); POTASSIUM 3.1 mmol/L (3.5-5.1)
[2018-09-20 23:45] LABS: SODIUM 118 mmol/L (136-145)
[2018-09-21] VITALS (9 sets, daily range): BP systolic 123–180; BP diastolic 72–88
--- NOTE | 2018-09-21 00:02 | Diagnostic Imaging Report ---
EXAM: Abdomen 2 Views INDICATION: ^ABD PAIN ^[id number] ^2338 ^Y COMPARISON: CT abdomen pelvis 09/16/2018 FINDINGS: Lines/tubes: None. Mild amount of stool in the colon. No dilated loops of small bowel. Moderately distended stomach. Right upper quadrant cholecystectomy clips. No renal calculi. No abnormal soft tissue masses. Moderate degenerative changes in the lumbar spine and pelvis. Status post fixation of the lower lumbar spine. IMPRESSION: 1. Moderate distention of the stomach. 2. Nonobstructive bowel gas pattern. Signed by: Dr. Carlota Dia M.D. on 09/20/2018 11:59 PM
[2018-09-21] MEDS ORDERED: LORAZEPAM INJ 2 MG/ML VIAL ONE (00:04)
--- NOTE | 2018-09-21 00:05 | NUR ---
PT VERY ANXIOUS, REPORTS SOB, APPEARS TO BE HYPERVENTILATING AND REPORTS R LEG NUMBNESS, PTS SATS 96% PT PLACED ON 2L NC, DR HOPKINS NOTIFIED AND IS AT PT BEDSIDE.
[2018-09-21] MEDS ORDERED: LORAZEPAM INJ 2 MG/ML VIAL IV STA ×2 (00:06)
--- NOTE | 2018-09-21 00:07 | NUR ---
PT REASSURED TO TAKE SLOW DEEP BREATHS BY MYSELF AND DR HOPKINS, ORDERS REC'D FOR IV ATIVAN.
[2018-09-21] MEDS ORDERED: CITALOPRAM HBR20 MG PO (00:22)
[2018-09-21] MEDS ORDERED: SIMVASTATIN40 MG PO (00:31)
[2018-09-21] MEDS ORDERED: LISINOPRIL-HCT1 EAC1 PO (00:31)
[2018-09-21] MEDS ORDERED: SYNTHROID75 MCG PO (00:31)
[2018-09-21] MEDS ORDERED: VESICARE5 MG PO (00:31)
[2018-09-21] MEDS ORDERED: MELOXICAM7.5 MG PO (00:31)
[2018-09-21] MEDS ORDERED: ZETIA10 MG PO (00:31)
[2018-09-21] MEDS ORDERED: DEXILANT60 MG PO (00:31)
[2018-09-21] MEDS ORDERED: GABAPENTIN300 MG PO (00:31)
--- NOTE | 2018-09-21 07:41 | NUR ---
paged Dr Ahuja regarding Sodium level. patient is stable.
[2018-09-21] MEDS ORDERED: SODIUM CHLORIDE 0.9% 1000ML 1,000 ML IV SCH (08:45)
--- NOTE | 2018-09-21 08:58 | NUR ---
New orders recvd from Dr Ahuja.
[2018-09-21] MEDS ORDERED: SODIUM CHLORIDE 1 GM TAB PO NR (09:00)
[2018-09-21 10:00] LABS: ALANINE AMINOTRANSFERASE 19 IU/L (0-55); ALBUMIN 3.6 g/dL (3.5-5.0); ALBUMIN/GLOBULIN RATIO 1.2 (0.8-2.0); ALKALINE PHOSPHATASE 73 IU/L (40-150); ANION GAP 11.2 mmol/L (8-16); BLOOD UREA NITROGEN < 5 mg/dL (7-26); CALCIUM 8.8 mg/dL (8.4-10.2); CARBON DIOXIDE 25 mmol/L (22-29); CHLORIDE 97 mmol/L (98-107); CREATININE, SERUM 0.67 mg/dL (0.57-1.11); EST GLOMERULAR FILTRATION RATE > 60 ML/MIN (60-); GLUCOSE 95 mg/dL (74-118); POTASSIUM 3.2 mmol/L (3.5-5.1); SODIUM 130 mmol/L (136-145)
[2018-09-21 10:03] LABS: BUN/CREATININE RATIO 7 (6-25)
[2018-09-21 10:22] LABS: FREE THYROXINE INDEX 2.3995 (1.4-3.8); THYROID STIMULATING HORMONE 1.775 uIU/mL (0.350-4.940)
[2018-09-21] MEDS ORDERED: CITRATE OF MAGNESIA 300ML BOTTLE PO NR (11:45)
[2018-09-21] MEDS ORDERED: KCL 20MEQ/.9 SOD CHL 1,000 ML IV SCH ×2 (13:00)
[2018-09-21 13:53] LABS: BILIRUBIN,URINE NEGATIVE (NEGATIVE); COLOR,URINE YELLOW (YELLOW); KETONES,URINE TRACE (NEGATIVE); LEUKOCYTE ESTERASE ,URINE NEGATIVE (NEGATIVE); NITRITE,URINE NEGATIVE (NEGATIVE); PROTEIN,URINE DIPSTICK NEGATIVE (NEGATIVE); URINE UROBILINOGEN 0.2 mg/dL (0.2 - 1)
[2018-09-21 13:55] LABS: CLARITY,URINE SL CLOUDY (CLEAR)
[2018-09-21 14:04] LABS: MAGNESIUM 2.6 MG/DL (1.3-2.1); PHOSPHORUS 1.8 MG/DL (2.3-4.7)
[2018-09-21 14:08] LABS: AMORPHOUS SEDIMENT,URINE MANY (FEW); EPITHELIAL CELLS,URINE FEW /LPF
[2018-09-21 14:18] LABS: SODIUM,URINE 96 mmol/L
[2018-09-21] MEDS ORDERED: GABAPENTIN 400 MG CAP PO SCH (15:00)
[2018-09-21] MEDS ORDERED: HYOSCYAMINE SULFATE 0.5 MG/ML INJ ONE (16:00)
[2018-09-21] MEDS: LISINOPRIL 10 MG TAB PO SCH (16:50)
--- NOTE | 2018-09-21 16:58 | NUR ---
patient back in room from Colonoscopy. Alert with no distress, not in any pain
[2018-09-21] MEDS ORDERED: LIDOCAINE HCL 2% LOCAL INJ 5 ML SDV VIAL INJ ONE (17:42)
[2018-09-21] MEDS ORDERED: PROPOFOL IV EMULSION 10 MG/ML 50 ML VIAL ONE (17:42)
--- NOTE | 2018-09-21 18:43 | History and Physical ---
The patient of Dr. Yeboah, Dr. Roger Faustin, and Dr. Stanislav Ahuja HISTORY OF PRESENT ILLNESS: Charming, but unfortunate 72-year-old woman admitted with cramping abdominal pain. She has a history of diarrhea of two days' duration on Friday and Friday of this week. Had a colon prep last night and became increasingly weak. Colonoscopy was planned for today, and she insisted that we proceed with that. She apparently passed bloody stool on Friday last week, should it may be . PAST MEDICAL HISTORY: She has had multiple back surgeries x3 with laminectomies and fusion, weakness and pain in the legs have persisted. History of hypertension, degenerative joint disease, and hyperlipidemia. FAMILY HISTORY: Noncontributory. SOCIAL HISTORY: Nonsmoker. No alcohol. Worked as a elementary school art teacher. Born in [place]. MEDICATIONS: Included Celexa, Dexilant, Zetia, Neurontin, Levoxyl, hydrochlorothiazide, lisinopril, Mobic, Zocor, and VESIcare. PHYSICAL EXAMINATION: GENERAL: She is a well-developed, sprightly white female, in no acute distress, looking her stated age. HEENT: Head, normocephalic, atraumatic. Eyes, extraocular movements intact. LUNGS: Clear. HEART: Regular rhythm. ABDOMEN: Nontender. EXTREMITIES: Nonedematous. IMPRESSION: 1. Gastroenteritis, hyponatremia, contributed to by colon prep and thiazide diuretic. Sodium has gone from 118-130, I will call into the Nephrology Service, call also into Gastroenterology. Keep the patient n.p.o. at this time. Her laminectomy was performed on 08/20/2018 of left L3-4. MD MIKE Mendoza/MODL /[id number]
--- NOTE | 2018-09-21 19:00 | NUR ---
Received bedside shift report from day shift RN. Patient is laying on the bed, side rails up x2, call light within reach and bed set low. Patient is not in distress.
[2018-09-21] MEDS ORDERED: FENTANYL CITRATE/PF 100MCG/2 ML INJ ONE (19:02)
[2018-09-21] MEDS ORDERED: MIDAZOLAM HCL 2 MG/2 ML VIAL ONE (19:02)
--- NOTE | 2018-09-21 20:23 | Diagnostic Imaging Report ---
EXAMINATION: CHEST 2 VIEWS INDICATION: ^htn COMPARISON: Abdominal radiographs dated 09/20/2018 FINDINGS: AP view TUBES and LINES: None. LUNGS/PLEURA: The lungs are clear. No pleural effusion or pneumothorax. HEART AND MEDIASTINUM: The cardiomediastinal silhouette is unremarkable. BONES AND SOFT TISSUES: No acute osseous lesion. Soft tissues are unremarkable. Lower cervical ACDF. UPPER ABDOMEN: No free air under the diaphragm. Air-filled, prominent loops of bowel project over the upper abdomen IMPRESSION: No acute thoracic abnormality. Air-filled prominent loops of bowel in the upper abdomen, likely colon. Signed by: Alex Caicedo MD on 09/21/2018 8:20 PM
--- NOTE | 2018-09-21 20:58 | Consultation ---
DATE OF CONSULTATION: 09/21/2018 HISTORY OF PRESENT ILLNESS: A 72-year-old female, being consulted for management of hyponatremia. She is currently awake, alert, and oriented x3. No apparent distress. Daughter by bedside. Denies any nausea, vomiting, or diarrhea. She has had recent laminectomy. She has been on pain medication. Denies any other [id number] medications. She states that she does have a history of hyponatremia which is going on for months. She has been seeing a primary doctor who tells her each time that she has low sodium, but he does not tell her why or give any specific treatment that the patient could tell me. Today, labs show sodium 130, potassium 3.2, bicarb 25, creatinine 0.67, and hemoglobin 14. LFTs; AST 21, ALT 19, and total bilirubin 0.5. Workup included white count 10.2, hemoglobin 14.1. Urinalysis not done. ALLERGIES: SHE IS ALLERGIC TO QUININE. PAST MEDICAL HISTORY: She has underlying history of hypertension, neuropathy, lumbar disk disease, hypothyroidism, and hyperlipidemia. MEDICATIONS: She has been on lisinopril hydrochlorothiazide at home along with thyroid medication as well as gabapentin. She also takes VESIcare. She did not tell me she had any bladder issues. Her current medications include, simvastatin, Zocor 40 mg daily, lorazepam p.r.n., lisinopril 10 mg p.o. b.i.d., levothyroxine 75 mcg daily, and Neurontin 400 mg p.o. t.i.d. SOCIAL HISTORY: The patient does not smoke. She states she drinks alcohol, but she does not tell me how much and how often. FAMILY HISTORY: Significant for hypertension. Diet-tristan, she sometimes cooks. PHYSICAL EXAMINATION: GENERAL: Awake, alert, lying supine in no apparent distress with a blood pressure of 180/82, pulse rate 98, afebrile. HEAD AND NECK: Cornea clear. Mucosa moist. Neck veins flat. LUNGS: Relatively clear. HEART: S1, S2 audible. ABDOMEN: Otherwise soft, nontender. EXTREMITIES: Lower extremity, no edema. SKIN: Numerous spider angiomata noted over the chest area. PAST SURGICAL HISTORY: Prior history of cholecystectomy and lumbar laminectomy. IMPRESSION: Hyponatremia, history of chronic hyponatremia, and hypokalemia. Blood pressure relatively elevated. I have asked her to stop her lisinopril HCTZ at home. The etiology could be SIADH or thiazide induced. Beer potomania should be entertained as well. We will obtain urinalysis, check urine specific gravity, urine sodium, chloride and creatinine. We will check serum uric acid level and thyroid function tests. Replace potassium, IV normal saline. Regular salt diet. Blood pressure is controlled. Please see orders. MD ZEESHAN Parsons/SHELLL /[id number]
[2018-09-21] MEDS ORDERED: SIMVASTATIN 40 MG TAB PO SCH (21:00)
[2018-09-22] VITALS: BP 141/78
[2018-09-22 05:21] LABS: BASOPHILS # (AUTO) 0.1 (0.0-0.1); EOSINOPHILS # (AUTO) 0.1 (0.0-0.4); EOSINOPHILS % 1.5 % (0.0-6.0); HEMATOCRIT 33.9 % (34.2-44.1); HEMOGLOBIN 11.7 g/dL (12.0-16.0); LYMPHOCYTES # (AUTO) 1.6 (1.0-3.2); LYMPHOCYTES % 22.7 % (18.0-39.1); MEAN CORPUSCULAR HEMOGLOBIN 31.4 pg (28-32); MEAN CORPUSCULAR HGB CONC 34.5 g/dL (31-35); MEAN CORPUSCULAR VOLUME 90.9 fL (81-99); MONOCYTES # (AUTO) 0.7 (0.2-0.8); MONOCYTES % 10.3 % (4.4-11.3); NEUTROPHILS # (AUTO) 4.3 (2.1-6.9); NEUTROPHILS % 63.3 % (38.7-80.0); PLATELET COUNT 284 x10e3/uL (140-360); RED BLOOD COUNT 3.73 x10e6/uL (3.6-5.1); RED CELL DISTRIBUTION WIDTH 13.7 % (11.7-14.4)
[2018-09-22 05:36] LABS: INR 1.06; PROTHROMBIN TIME 14.3 seconds (11.9-14.5)
[2018-09-22 05:43] LABS: ALANINE AMINOTRANSFERASE 16 IU/L (0-55); ALBUMIN/GLOBULIN RATIO 1.3 (0.8-2.0); ALKALINE PHOSPHATASE 58 IU/L (40-150); ANION GAP 8.2 mmol/L (8-16); BLOOD UREA NITROGEN < 5 mg/dL (7-26); CALCIUM 8.2 mg/dL (8.4-10.2); CARBON DIOXIDE 23 mmol/L (22-29); CHLORIDE 106 mmol/L (98-107); CREATININE, SERUM 0.61 mg/dL (0.57-1.11); EST GLOMERULAR FILTRATION RATE > 60 ML/MIN (60-); GLUCOSE 87 mg/dL (74-118); POTASSIUM 3.2 mmol/L (3.5-5.1); SODIUM 134 mmol/L (136-145)
[2018-09-22 05:45] LABS: BUN/CREATININE RATIO 8 (6-25)
[2018-09-22 05:58] LABS: MAGNESIUM 2.1 MG/DL (1.3-2.1)
[2018-09-22] MEDS ORDERED: LEVOTHYROXINE SODIUM 75 MCG TAB PO SCH (06:00)
[2018-09-22 07:33] VITALS: BP 136/63
[2018-09-22] MEDS: LISINOPRIL 10 MG TAB PO SCH (08:10)
[2018-09-22] MEDS ORDERED: LISINOPRIL10 MG PO ×2 (09:25→13:28)
[2018-09-22] MEDS ORDERED: POTASSIUM CHLORIDE 20 MEQ TAB CR PO STA (10:49)
[2018-09-22 11:32] VITALS: BP 158/75
[2018-09-22 11:57] VITALS: BP 158/75
--- NOTE | 2018-09-22 13:39 | NUR ---
Dr Ahuja here in patient's room, cleared to go home
--- NOTE | 2018-09-22 13:41 | NUR ---
patient discharged home, Prescription given by Dr Goldberg, IV Canula removed with tip intact, no ss of infiltration, patient denies any pain , no distress noted, her friend at bed side to give ride, transported via wheelchair to [facility].
--- NOTE | 2018-09-22 17:15 | Discharge Summary ---
Patient of Dr. Lemos, Dr. Roger Faustin, Dr. Stanislav Ahuja. HOSPITAL COURSE: Unfortunate 72-year-old woman, admitted with crampy abdominal pain and diarrhea of two days duration. She was complaining of pain and weakness after her colon prep. She was found to be hyponatremic with sodium 118. History of multiple back surgeries, laminectomies and fusions, persistent weakness in the leg, history of hypertension, hyperlipidemia, and nonsmoker. Hyponatremia was corrected with saline, it was felt to be related primarily to combination of colon prep and hydrochlorothiazide. Hydrochlorothiazide was discontinued. She was placed on lisinopril 10 mg b.i.d. She is continue her other medications, which included Celexa, Dexilant, Zetia, Neurontin, Levoxyl, meloxicam, Zocor, and VESIcare. Colonoscopy was suspicious for ischemic colitis. The patient is improving. She is to be followed by Dr. Roger Faustin and Dr. Lemos. MD MIKE Mendoza/MODL /[id number]
--- NOTE | 2018-11-26 08:04 | Operative Report ---
DATE OF PROCEDURE: 09/21/2018 SURGEON: Roger Faustin MD PROCEDURE: colonoscopy with biopsies. REFERRING PHYSICIAN: Dr. Americo Lemos. INDICATIONS FOR COLONOSCOPY: Rectal bleeding. MEDICATIONS: The patient was done under MAC, please see anesthesiologist's note. PROCEDURE IN DETAIL: With the patient in left lateral decubitus position, a flexible fiberoptic Olympus colonoscope was inserted into the rectum with ease and advanced all the way to the cecum. It was then withdrawn slowly. Mucosa overlying the cecum, ascending colon, and transverse colon appeared to be within normal limits. There were some patchy mild inflammatory changes noted in the left colon and random biopsies were obtained to rule out ischemic colitis. Mucosa overlying the rectum appeared to be within normal limits. The scope was then retroflexed into the distal rectum and moderate-sized internal hemorrhoids were noted, none of which was actively bleeding. The scope was then straightened out, it was subsequently withdrawn after securing an adequate stool specimen and that was sent for the appropriate stool studies. The patient tolerated the procedure well. IMPRESSION: 1. Patchy left-sided colitis, rule out ischemic colitis, biopsies obtained. 2. Internal hemorrhoids, none actively bleeding. PLAN: Follow up histology. Initiate a GI soft diet. Roger Faustin MD [facility] [place] /[id number] cc: Americo Lemos MD
== END 2018-09-22 13:40 | disposition home or self-care (01) ==
LOC: ER 22:59 → ERHOLD 09-21 00:31 → IMCU 09-21 01:00
PROVIDERS: ADMIT Internal Medicine; ATTEND Internal Medicine
DX: K51.50 Left sided colitis without complications (principal); K55.9 Vascular disorder of intestine, unspecified; R10.84 Generalized abdominal pain; E87.1 Hypo-osmolality and hyponatremia; Z88.8 Allergy status to other drugs, medicaments and biological substances; K52.9 Noninfective gastroenteritis and colitis, unspecified; T50.905A Adverse effect of unspecified drugs, medicaments and biological substances, initial encounter; E78.5 Hyperlipidemia, unspecified; M19.90 Unspecified osteoarthritis, unspecified site
CPT/HCPCS: 36415 ×3; 45380; 71046; 74018; 80053 ×3; 81001; 82436; 83735 ×2; 84100 ×2; 84300; 84436; 84443; 84479; 84550; 85025 ×2; 85610; 88305; 96374; 97116; 97161; 99284; G0378 ×2; J1980; J2001; J2060; J2250; J2704; J7030; J3010

== ENCOUNTER 2018-10-02 12:55 | Outpatient (RCR) | payer MEDICARE, OTHER ==
[~2018-10-02 12:55] MED LIST changes: +CITALOPRAM HBR20 MG PO; +LISINOPRIL-HCT1 EAC1 PO; +LISINOPRIL10 MG PO
== END 2018-10-18 ==
LOC: PT 12:55
PROVIDERS: ATTEND Neurological Surgery
DX: M51.16 Intervertebral disc disorders with radiculopathy, lumbar region (principal); M62.81 Muscle weakness (generalized)

== ENCOUNTER 2020-02-14 12:27 | Inpatient (IN) | payer MEDICARE, OTHER ==
[~2020-02-14] VITALS: Ht 160 cm; Wt 65.8 kg
--- NOTE | 2020-02-14 12:39 | Emergency Department Note ---
History of Present Illnes History of Present Illness Chief Complaint: COVID PUI History of Present Illness This is a 74 year old female arrived to the ED with complaints of cough, shortness of breath, recent diagnosis of a coronavirus. Chief Complaint Comment X 2 WEEKS SHORTNESS OF BREATH. SHE FELT LIKE IT WAS GETTING BETTER, BUT NOW FEELS WORSE. TEMP 100.6 THIS AM, TOOK EXEDERIN. SAT 95% BEGAN HAVING SYMPTOMS Jan, TESTED POSITIVE Jan Onset (how long ago): week(s) Severity: moderate Onset quality: gradual Duration (how long): week(s) Timing of current episode: constant Progression: worsening Chronicity: recurrent Context: Reports recent illness Relieving factors: none Exacerbating factors: movement Associated symptoms: Reports fever/chills, Reports headaches, Reports loss of appetite, Reports shortness of breath Past Medical/Family History Physician Review I have reviewed the patient's past medical and family history. Any updates have been documented here. Past Medical History Past Medical History: Hypertension, Hypothyroidism, GERD Past Surgical History: Cholecysctectomy, Hysterectomy, Back Surgery, Cataract Removal Other Surgery: Foot surgery L Neck surgery L4 and L5 2017 BACK SURGERY Social History Smoking Cessation: Former smoker Alcohol Use: Social Other Last Tetanus: UNK Review of Systems Review of Systems Constitutional: Reports no symptoms, Reports as per HPI, Reports fever, Reports malaise, Reports weakness EENTM: Reports no symptoms Cardiovascular: Reports no symptoms Respiratory: Reports as per HPI, Reports cough, Reports pain with cough Gastrointestinal: Reports no symptoms Genitourinary: Reports no symptoms Musculoskeletal: Reports no symptoms Integumentary: Reports no symptoms Neurological: Reports as per HPI, Reports headache Psychological: Reports no symptoms Endocrine: Reports no symptoms Hematological/Lymphatic: Reports no symptoms Physical Exam Related Data Allergies: Coded Allergies: quinine (Verified Allergy, Severe, FLU-LIKE SYMPTOMS, 09/14/10) Vital signs reviewed: Yes Physical Exam CONSTITUTIONAL Constitutional: Present well-developed, Present distressed, Present ill appearing HENT HENT: Present normocephalic, Present atraumatic, Present oropharynx clear/moist, Present nose normal HENT L/R: Present left ext ear normal, Present right ext ear normal EYES Eyes: Reports PERRL, Reports conjunctivae normal NECK Neck: Present ROM normal PULMONARY Pulmonary: Present effort normal, Present respiratory distress CARDIOVASCULAR Cardiovascular: Present regular rhythm, Present heart sounds normal, Present capillary refill normal, Present normal rate GASTROINTESTINAL Abdominal: Present soft, Present nontender, Present bowel sounds normal GENITOURINARY Genitourinary: Present exam deferred SKIN Skin: Present warm, Present dry MUSCULOSKELETAL Musculoskeletal: Present ROM normal NEUROLOGICAL Neurological: Present alert, Present oriented x 3, Present no gross motor or sensory deficits PSYCHOLOGICAL Psychological: Present mood/affect normal, Present judgement normal Results Laboratory Lab results reviewed: Yes Laboratory comments Laboratory Tests Test 02/14/20 14:19 02/14/20 14:15 White Blood Count 9.99 x10e3/uL (4.8-10.8) Red Blood Count 4.10 x10e6/uL (3.6-5.1) Hemoglobin 12.3 g/dL (12.0-16.0) Hematocrit 34.8 % (34.2-44.1) Mean Corpuscular Volume 84.9 fL (81-99) Mean Corpuscular Hemoglobin 30.0 pg (28-32) Mean Corpuscular Hemoglobin Concent 35.3 g/dL (31-35) Red Cell Distribution Width 12.8 % (11.7-14.4) Platelet Count 353 x10e3/uL (140-360) Neutrophils (%) (Auto) 90.8 % (38.7-80.0) Lymphocytes (%) (Auto) 4.1 % (18.0-39.1) Monocytes (%) (Auto) 3.5 % (4.4-11.3) Eosinophils (%) (Auto) 0.1 % (0.0-6.0) Basophils (%) (Auto) 0.2 % (0.0-1.0) Neutrophils # (Auto) 9.1 (2.1-6.9) Lymphocytes # (Auto) 0.4 (1.0-3.2) Monocytes # (Auto) 0.4 (0.2-0.8) Eosinophils # (Auto) 0.0 (0.0-0.4) Basophils # (Auto) 0.0 (0.0-0.1) Absolute Immature Granulocyte (auto 0.13 x10e3/uL (0-0.1) Sodium Level 132 mmol/L (136-145) Potassium Level 2.7 mmol/L (3.5-5.1) Chloride Level 92 mmol/L (98-107) Carbon Dioxide Level 23 mmol/L (22-29) Anion Gap 19.7 mmol/L (8-16) Blood Urea Nitrogen 10 mg/dL (7-26) Creatinine 0.69 mg/dL (0.57-1.11) Estimat Glomerular Filtration Rate > 60 ML/MIN (60-) BUN/Creatinine Ratio 14 (6-25) Glucose Level 92 mg/dL (74-118) Calcium Level 8.7 mg/dL (8.4-10.2) Total Bilirubin 0.5 mg/dL (0.2-1.2) Aspartate Amino Transf (AST/SGOT) 41 IU/L (5-34) Alanine Aminotransferase (ALT/SGPT) 22 IU/L (0-55) Alkaline Phosphatase 82 IU/L (40-150) Creatine Kinase 50 IU/L (29-168) Creatine Kinase MB 2.60 ng/mL (0-4.3) Troponin I 0.009 ng/mL (0-0.300) Total Protein 6.7 g/dL (6.5-8.1) Albumin 2.5 g/dL (3.5-5.0) Globulin 4.2 g/dL (2.3-3.5) Albumin/Globulin Ratio 0.6 (0.8-2.0) Imaging Imaging results reviewed: Yes Impressions IMPRESSION: Multiple peripheral ill-defined interstitial airspace opacities predominantly within the perihilar region and lung bases, findings are commonly seen in patients with Covid pneumonia. Negative for large effusion or pneumothorax. Critical Care Time Total Critical Care Time (min): 45 Critical care time exclusive o: separately billable procedures Critcal care necessary due to: respiratory failure Subsequent provider Patient is remarkably hypoxic, require supplement oxygen in the ED required frequent re-evaluations Given the critical condition in which the patient arrived, the patient was immediately assessed by myself and the nurse, and cardiac monitoring initiated due to the potential for rapid decompensation of the patient's clinical condition. During the course of the patient?s stay, I spent a considerable amount of time at the bedside performing serial re-evaluations of the patient's hemodynamic and clinical status because of the recognized potential threat to life or limb in this condition. I then had a chance to review not only all of the available current laboratory and radiographic studies obtained today, but I also reviewed old records available to me at the time. Additionally, any ancillary information available including consular officer records were reviewed. Sequential vital signs were obtained. Critical Care time of 45 minutes was performed exclusive of billable procedures Assessment & Plan Medical Decision Making MDM 74-year-old female arrived to the ED with complaints of cough fever chills. Patient noted to be markedly hypoxic on exertion. Patient uses oxygen due to Covid pneumonia. Clinical Impression and Disposition Plan My clinical impression includes: Acute respiratory failure secondary to a coronavirus, pneumonia No diagnosis found. And plan is admit for: -Further monitoring and evaluation is medically necessary -Failure to respond to outpatient treatment -Changes in pt's condition require medical attention -High risk for adverse event impacting life/organs/systems -Impossible to complete diagnostic studies as an outpatient -Signs/symptoms could lead to deterioration of patient -Treatment plan will require frequent clinical modifications -Treatment requires inpatient setting All clinical impressions and diagnoses provided are preliminary ED determinations subject to the inherent limitations of an emergent non-scheduled evaluation and possible lack of comprehensive previous records. All patient care including history taking, review of systems, physical exam, nursing notes review, medical decision making, clinical course management in the emergency department, clinical impression, disposition and plan formulation was performed on the date of service. This note was created using a voice-recognition transcribing system. Incorrect words or phrases may have been missed during proofreading. Please interpret accordingly. Assessment & Plan Final Impression: (1) COVID-19 Depart Disposition: ADMITTED Home Meds Reported Medications Lisinopril (LISINOPRIL) 10 Mg Tablet, 10 MG PO BID for 30 Days, #30 TAB 09/22/18 Solifenacin Succinate (VESICARE) 5 Mg Tablet, 10 MG PO DAILY, #30 TAB 09/21/18 Levothyroxine Sodium (SYNTHROID) 75 Mcg Tab, 75 MCG PO DAILY, #30 TAB 09/21/18 Simvastatin (SIMVASTATIN) 40 Mg Tablet, 40 MG PO 2100, #30 TAB 09/21/18 Dexlansoprazole (DEXILANT) 60 Mg , 60 MG PO DAILY THERAPEUTIC INTERCHANGE WITH PROTONIX PER [facility] 09/21/18 Meloxicam (MELOXICAM) 7.5 Mg Tablet, 15 MG PO DAILY, #30 TAB 09/21/18 Ezetimibe (ZETIA) 10 Mg Tablet, 10 MG PO DAILY, #30 TAB 09/21/18 Gabapentin (GABAPENTIN) 300 Mg Capsule, 300 MG PO Q4HR, #60 CAP 09/21/18 Citalopram Hydrobromide (CITALOPRAM HBR) 20 Mg Tablet, 20 MG PO DAILY 09/21/18 PIETRO HOPKINS DO Feb 14, 2020 12:39
[2020-02-14] MEDS ORDERED: ACETAMINOPHEN/CODEINE 300MG - 30MG TAB PO ONE (13:00)
--- NOTE | 2020-02-14 13:50 | Diagnostic Imaging Report ---
TECHNIQUE: Frontal view of the chest. INDICATION: ^Y ^COVID ^[id number] ^1330 COMPARISON: 09/21/2018 DISCUSSION: Limited evaluation due to portable technique. Lines and hardware: Overlying EKG leads are noted. Heart and mediastinum: Within normal limits. Lungs and pleura: There are multiple peripheral ill-defined interstitial airspace opacities diffusely. Negative for large effusion or pneumothorax. Soft tissues and bones: No acute abnormality. IMPRESSION: Multiple peripheral ill-defined interstitial airspace opacities predominantly within the perihilar region and lung bases, findings are commonly seen in patients with Covid pneumonia. Negative for large effusion or pneumothorax. Signed by: Dejuan Salas MD on 02/14/2020 1:47 PM
[2020-02-14 14:27] LABS: BASOPHILS % 0.2 % (0.0-1.0); EOSINOPHILS % 0.1 % (0.0-6.0); HEMATOCRIT 34.8 % (34.2-44.1); HEMOGLOBIN 12.3 g/dL (12.0-16.0); LYMPHOCYTES # (AUTO) 0.4 (1.0-3.2); LYMPHOCYTES % 4.1 % (18.0-39.1); MEAN CORPUSCULAR HGB CONC 35.3 g/dL (31-35); MEAN CORPUSCULAR VOLUME 84.9 fL (81-99); MONOCYTES # (AUTO) 0.4 (0.2-0.8); MONOCYTES % 3.5 % (4.4-11.3); NEUTROPHILS # (AUTO) 9.1 (2.1-6.9); NEUTROPHILS % 90.8 % (38.7-80.0); PLATELET COUNT 353 x10e3/uL (140-360); RED CELL DISTRIBUTION WIDTH 12.8 % (11.7-14.4)
[2020-02-14 14:44] LABS: ALANINE AMINOTRANSFERASE 22 IU/L (0-55); ALBUMIN 2.5 g/dL (3.5-5.0); ALBUMIN/GLOBULIN RATIO 0.6 (0.8-2.0); ALKALINE PHOSPHATASE 82 IU/L (40-150); ANION GAP 19.7 mmol/L (8-16); BLOOD UREA NITROGEN 10 mg/dL (7-26); BUN/CREATININE RATIO 14 (6-25); CALCIUM 8.7 mg/dL (8.4-10.2); CARBON DIOXIDE 23 mmol/L (22-29); CHLORIDE 92 mmol/L (98-107); CREATINE KINASE 50 IU/L (29-168); CREATININE, SERUM 0.69 mg/dL (0.57-1.11); EST GLOMERULAR FILTRATION RATE > 60 ML/MIN (60-); GLUCOSE 92 mg/dL (74-118); SODIUM 132 mmol/L (136-145)
[2020-02-14 14:45] LABS: POTASSIUM 2.7 mmol/L (3.5-5.1)
--- NOTE | 2020-02-14 14:45 | NUR ---
received report from lab, kcl 2.7, notified SARMAD CEBALLOS
[2020-02-14] MEDS ORDERED: POTASSIUM CHLORIDE 20 MEQ TAB CR PO ONE (15:15)
[2020-02-14] MEDS ORDERED: SODIUM CHLORIDE 0.9% 250ML 250 ML ONE (15:24)
[2020-02-14] MEDS ORDERED: POTASSIUM CHLORIDE 10MEQ/100ML 100 ML IV ONE (15:30)
[2020-02-14] MEDS ORDERED: SODIUM CHLORIDE 0.9% 250ML 250 ML IV ONE (15:30)
--- NOTE | 2020-02-14 18:56 | Consultation ---
DATE OF CONSULTATION: REASON FOR CONSULTATION: COVID-19. HISTORY OF PRESENT ILLNESS: The patient, who is a 74-year-old white female, comes into the emergency room with cough and shortness of breath. She was diagnosed with COVID-19 two weeks ago. She was admitted. PAST MEDICAL HISTORY: Hypertension, hypothyroidism, and GERD. PAST SURGICAL HISTORY: Cholecystectomy, hysterectomy, back surgery, foot surgery, and neck surgery. ALLERGIES: NKA. SOCIAL HISTORY: She used to smoke. REVIEW OF SYSTEMS: Cough, shortness of breath, and fever. LABORATORY DATA: White count 9.99 and hemoglobin 12. COVID is pending. Sodium 132, potassium 2.7, and creatinine 0.69. Chest x-ray, multiple interstitial space. PHYSICAL EXAMINATION: GENERAL: Currently alert and oriented. VITAL SIGNS: Stable, currently afebrile. HEENT: She is not icteric. NECK: Supple. CHEST: Crackles bilateral. HEART: S1 and S2. ABDOMEN: Soft. IMPRESSION: COVID-19, superimposed, bacterial pneumonia. We will put on Rocephin 1 g daily 5 days and azithromycin 500 mg daily for 3 days. Supportive care for the time being. We will keep her in isolation for now. We will follow. MD JAY Willson/CYNTHIA /[id number]
[2020-02-14 19:00] VITALS: BP 118/67
[2020-02-14] MEDS ORDERED: ACETAMINOPHEN 325 MG TAB PO PRN (19:15)
[2020-02-14] MEDS: ENOXAPARIN 30 MG/0.3 ML SYR SC SCH (20:35)
[2020-02-14] MEDS: DEXAMETHASONE SOD PHOS INJ 4 MG/ML VIAL IV SCH (20:35)
[2020-02-14] MEDS: AZITHROMYCIN 250MG/NS 100 ML 100 ML IV SCH (20:35)
[2020-02-14] MEDS: CEFTRIAXONE SOD 1 GM/NS 50 ML 50 ML IV SCH (21:49)
[2020-02-14 22:56] VITALS: BP 118/67
[2020-02-15] VITALS (9 sets, daily range): BP systolic 122–143; BP diastolic 58–88
[2020-02-15] MEDS ORDERED: AMLODIPINE BESY10 MG PO (00:44)
[2020-02-15] MEDS ORDERED: REGLAN10 MG PO (00:45)
[2020-02-15] MEDS ORDERED: MYRBETRIQ25 MG PO (00:46)
[2020-02-15 06:01] LABS: BASOPHILS % 0.2 % (0.0-1.0); HEMATOCRIT 35.2 % (34.2-44.1); HEMOGLOBIN 12.2 g/dL (12.0-16.0); LYMPHOCYTES # (AUTO) 0.3 (1.0-3.2); MEAN CORPUSCULAR HEMOGLOBIN 30.1 pg (28-32); MEAN CORPUSCULAR HGB CONC 34.7 g/dL (31-35); MEAN CORPUSCULAR VOLUME 86.9 fL (81-99); MONOCYTES # (AUTO) 0.1 (0.2-0.8); MONOCYTES % 0.9 % (4.4-11.3); NEUTROPHILS % 91.7 % (38.7-80.0); PLATELET COUNT 381 x10e3/uL (140-360); RED BLOOD COUNT 4.05 x10e6/uL (3.6-5.1); RED CELL DISTRIBUTION WIDTH 12.8 % (11.7-14.4)
--- NOTE | 2020-02-15 07:00 | NUR ---
RECEIVED REPORT FROM OFF GOING NIGHT NURSE. RESPIRATIONS EVEN AND NONLABORED. PATIENT ABLE TO VOICE NEEDS. PATIENT IN STABLE CONDITION, NO S/S OF DISTRESS NOTED. IV SITE ASYMPTOMATIC AND PATENT TRANSPARENT DRESSING C/D/I. TELEMETRY APPLIED. BED IN LOWEST POSITION AND LOCKED, SIDE RAILS X 2, NONSKID SOCKS APPLIED. CALL LIGHT WITHIN REACH.
[2020-02-15 07:11] LABS: ALANINE AMINOTRANSFERASE 39 IU/L (0-55); ALBUMIN 2.5 g/dL (3.5-5.0); ALBUMIN/GLOBULIN RATIO 0.6 (0.8-2.0); ALKALINE PHOSPHATASE 285 IU/L (40-150); ANION GAP 17.3 mmol/L (8-16); BLOOD UREA NITROGEN 10 mg/dL (7-26); BUN/CREATININE RATIO 15 (6-25); CALCIUM 8.8 mg/dL (8.4-10.2); CARBON DIOXIDE 23 mmol/L (22-29); CHLORIDE 100 mmol/L (98-107); CREATININE, SERUM 0.67 mg/dL (0.57-1.11); EST GLOMERULAR FILTRATION RATE > 60 ML/MIN (60-); GLUCOSE 133 mg/dL (74-118); POTASSIUM 4.3 mmol/L (3.5-5.1); SODIUM 136 mmol/L (136-145)
[2020-02-15 08:01] LABS: LYMPHOCYTES % (MANUAL) 6 % (19-48); MONOCYTES % (MANUAL) 1 % (3.4-9.0); MYELOCYTES % (MANUAL) 1 % (0-0); NEUTROPHILS % (MANUAL) 92 % (40-74); PLATELET ESTIMATE SLIGHTLY INCREASED; PLATELET MORPHOLOGY COMMENT NORMAL; RBC MORPHOLOGY COMMENT NORMAL
[2020-02-15] MEDS: DEXAMETHASONE SOD PHOS INJ 4 MG/ML VIAL IV SCH (08:25)
--- NOTE | 2020-02-15 12:40 | Consultation ---
DATE OF CONSULTATION: Pulmonary Critical Care Consultation. CHIEF COMPLAINT: Fever, malaise and cough. HISTORY OF PRESENT ILLNESS: The patient is a 74-year-old woman. She reports being sick for about 2 weeks. She has had some fevers. She also has some malaise, cough and dyspnea. She received some Zithromax through a virtual visit and then came to the ER yesterday. Chest x-ray showed infiltrates consistent with viral pneumonia and she was positive for COVID. PAST SURGICAL HISTORY: 1. Status post cholecystectomy. 2. Status post back surgery. 3. Status post hysterectomy. 4. Status post foot surgery. 5. Status post neck surgery. PAST MEDICAL HISTORY: 1. Hypertension. 2. Hypothyroidism. 3. Gastroesophageal reflux disease. ALLERGIES: NO KNOWN DRUG ALLERGIES. SOCIAL HISTORY: The patient was a prior smoker, but is not smoking now. She is not a drinker. FAMILY HISTORY: Noncontributory. REVIEW OF SYSTEMS: She did have some fevers. She has no headache. She has no neck pain. She is complaining of some dyspnea and some cough. She has no chest pain. She has no nausea or vomiting. She has no leg edema. PHYSICAL EXAMINATION: VITAL SIGNS: The blood pressure is 130/79, saturation is 92% on 4 L and the pulse is 107. The patient is afebrile. HEENT: Shows no facial swelling or erythema. LYMPHATIC: Shows no submandibular, cervical or supraclavicular adenopathy. CARDIAC: Reveals regular rate and rhythm with normal S1 and S2. LUNGS: Auscultation of lungs show crackles and rhonchi at the bases. There is no wheezing. ABDOMEN: Soft and nontender. There is no rebound or guarding. EXTREMITIES: Shows no leg edema or calf tenderness. There is no cyanosis clubbing. SKIN: Shows no rashes. NEUROLOGICAL: Shows no focal abnormalities. LABORATORY DATA: White blood cell count is 5.4, hemoglobin 12.2, and the platelet count is 381. The BUN to creatinine ratio is normal. The other electrolytes are within normal limits and the albumin is 2.5. RADIOGRAPHIC DATA: Chest x-ray shows bilateral airspace opacities, suggestive of possible viral pneumonia. IMPRESSION: 1. Viral pneumonia and COVID-19 infection. 2. Possible superimposed bacterial infection. 3. Hypertension. 4. Hypothyroidism. 5. Gastroesophageal reflux disease. PLAN: 1. The patient will receive antibiotics. 2. Lovenox for DVT prevention. 3. Dexamethasone. 4. Physical therapy. 5. Oxygen as needed. MD NADIR Greene/MODL /[id number]
[2020-02-15 12:58] LABS: CREATINE KINASE MB 2.6 ng/mL (0-4.3)
--- NOTE | 2020-02-15 13:41 | Progress Note ---
DATE: SUBJECTIVE: Ms. Proctor is seeing in today. She is doing better. There is no new complaint. The patient was 74-year-old, who was diagnosed COVID more than 2 weeks ago, coming in with shortness of breath and cough. Chest x-ray showed infiltrate consistent with pneumonia. PHYSICAL EXAMINATION: GENERAL: Currently alert, oriented, does not seem to be in acute distress. VITAL SIGNS: Stable, currently afebrile. HEENT: She is not icteric. NECK: Supple. CHEST: Crackles bilateral. HEART: S1, S2. ABDOMEN: Soft. Bowel sounds present. EXTREMITIES: No edema. SKIN: No rash. VITAL SIGNS: Her temperature 98.1, heart rate 111, blood pressure 130/80. IMPRESSION: 1. Superimposed bacterial pneumonia on COVID-19. 2. Hypoxemia. 3. Discussed with the patient, she is on dexamethasone for 10 days, ceftriaxone for 5 days. She is on Lovenox and azithromycin. Continue all her home medication. The patient has high hypothyroidism and hypercholesteremia. We will continue same. 4. We will follow. MD JAY Willson/MODL /[id number]
--- NOTE | 2020-02-15 13:50 | NUR ---
Nutrition Screen Note RD Recommendation for Physician: Continue diet as ordered Plan of Care: RD following, monitoring for tolerance and adequacy Nutrition reason for involvement: MST Primary Diagnose(s): COVID-19 pneumonia Ht:63 in Wt: 145lbs BMI: 25.7kg/m2 IBW: 115lbs RD Assessment:(02/15/2020) Initial encounter with patient. Diet Hx: Pt has no known food allergies. Pt denies any difficulty chewing or swallowing nor has any nausea, vomiting or diarrhea. Pt is dentate. Pt denies any significant wt changes. Pt is reporting a good Po intake. Current Diet: Cardiac Malnutrition Evaluation (02/15/2020) The patient does not meet criteria for a specified degree of malnutrition at this time. Will re-evaluate at follow-up as appropriate. Diet Education Needs Assessment: Diet education not indicated. Diet Adequacy: Meeting calorie needs, Meeting protein needs, Meeting fluid needs. Tolerance: Tolerating PO Nutrition Care Level: Ozzie Willis RD,LD,CNSC
[2020-02-15] MEDS: ENOXAPARIN 30 MG/0.3 ML SYR SC SCH (16:16)
--- NOTE | 2020-02-15 18:50 | NUR ---
COMPLETED REPORT WITH ONCOMING NIGHT NURSE. RESPIRATIONS EVEN AND NONLABORED. PATIENT ABLE TO VOICE NEEDS. PATIENT IN STABLE CONDITION, NO S/S OF DISTRESS NOTED. OXYGEN APPLIED @ 4 LPM/NC. IV SITE ASYMPTOMATIC AND PATENT TRANSPARENT DRESSING C/D/I. TELEMETRY APPLIED. BED IN LOWEST POSITION AND LOCKED, SIDE RAILS X 2, NONSKID SOCKS APPLIED. CALL LIGHT WITHIN REACH.
[2020-02-15] MEDS: AZITHROMYCIN 250MG/NS 100 ML 100 ML IV SCH (21:09)
[2020-02-15] MEDS: SIMVASTATIN 40 MG TAB PO SCH (21:09)
--- NOTE | 2020-02-15 21:15 | NUR ---
Patient refused bed alarm. Risk explained.
[2020-02-15] MEDS: CEFTRIAXONE SOD 1 GM/NS 50 ML 50 ML IV SCH (22:15)
[2020-02-16] VITALS (9 sets, daily range): BP systolic 131–150; BP diastolic 78–82
[2020-02-16] MEDS: LEVOTHYROXINE SODIUM 75 MCG TAB PO SCH (05:11)
[2020-02-16 05:26] LABS: BASOPHILS % 0.2 % (0.0-1.0); HEMATOCRIT 33.8 % (34.2-44.1); HEMOGLOBIN 11.7 g/dL (12.0-16.0); LYMPHOCYTES # (AUTO) 0.6 (1.0-3.2); LYMPHOCYTES % 3.7 % (18.0-39.1); MEAN CORPUSCULAR HEMOGLOBIN 29.2 pg (28-32); MEAN CORPUSCULAR HGB CONC 34.6 g/dL (31-35); MEAN CORPUSCULAR VOLUME 84.3 fL (81-99); MONOCYTES # (AUTO) 0.4 (0.2-0.8); MONOCYTES % 2.6 % (4.4-11.3); NEUTROPHILS # (AUTO) 14.5 (2.1-6.9); NEUTROPHILS % 92.1 % (38.7-80.0); PLATELET COUNT 518 x10e3/uL (140-360); RED BLOOD COUNT 4.01 x10e6/uL (3.6-5.1); RED CELL DISTRIBUTION WIDTH 12.8 % (11.7-14.4)
[2020-02-16 05:45] LABS: ALANINE AMINOTRANSFERASE 31 IU/L (0-55); ALBUMIN 2.2 g/dL (3.5-5.0); ALBUMIN/GLOBULIN RATIO 0.6 (0.8-2.0); ALKALINE PHOSPHATASE 214 IU/L (40-150); ANION GAP 14.2 mmol/L (8-16); BLOOD UREA NITROGEN 15 mg/dL (7-26); BUN/CREATININE RATIO 25 (6-25); CALCIUM 8.5 mg/dL (8.4-10.2); CARBON DIOXIDE 24 mmol/L (22-29); CHLORIDE 102 mmol/L (98-107); EST GLOMERULAR FILTRATION RATE > 60 ML/MIN (60-); GLUCOSE 122 mg/dL (74-118); POTASSIUM 3.2 mmol/L (3.5-5.1); SODIUM 137 mmol/L (136-145)
[2020-02-16] MEDS: DEXAMETHASONE SOD PHOS INJ 4 MG/ML VIAL IV SCH (08:52)
[2020-02-16] MEDS: EZETIMIBE 10 MG TAB PO SCH (08:52)
--- NOTE | 2020-02-16 09:30 | Progress Note ---
DATE: 02/16/2020 SUBJECTIVE: Ms. Proctor is a 74-year-old female with history of hypertension and hypothyroidism. She lives at home by herself. Two weeks ago, she was diagnosed with COVID-19. She started complaining of some cough and shortness of breath, so she decided to come to the emergency room. She was found to have pneumonia and probably superimposed bacterial pneumonia. She was started on IV antibiotics and dexamethasone. PHYSICAL EXAMINATION: GENERAL: Today, the patient states she is feeling better. She still has some shortness of breath when she moves around. She requests home oxygen. VITAL SIGNS: Temperature is 98, blood pressure 131/82, O2 saturation is 94%, and respiratory rate is 18. LABORATORY DATA: On the blood work, white count went up to 15.76, hemoglobin 11.7, and hematocrit 33.8. Potassium 3.2, creatinine is 0.60, glucose is 122. COVID test came back positive. Chest x-ray shows multiple perihilar ill-defined interstitial airspace opacities compatible with COVID pneumonia. ASSESSMENT: 1. Coronavirus disease infection. 2. Coronavirus disease pneumonia. 3. Superimposed bacterial pneumonia. 4. Hypoxemia. 5. Hypothyroidism. 6. Hypertension. PLAN: Plan at present time is to continue IV antibiotics. Continue dexamethasone for 10 days. She is on Rocephin and azithromycin for IV antibiotics. Continue Lovenox for DVT prophylaxis. Continue other home medications. All this was discussed with the patient. All questions were answered to satisfaction. It is to notice that she has high elevated white count that is probably due to the steroids. MD FAHEEM Mendoza/MODL /[id number]
--- NOTE | 2020-02-16 10:47 | Progress Note ---
DATE: SUBJECTIVE: The patient is afebrile. She is still requiring 5 L of oxygen. PHYSICAL EXAMINATION: VITAL SIGNS: Blood pressure is 131/80, saturation is 94% and respiratory rate is 16. The pulse is 95. HEENT: Shows no facial swelling or erythema. LYMPHATIC: Shows no submandibular, cervical, or supraclavicular adenopathy. CARDIAC: Reveals a regular rate and rhythm with normal S1 and S2. LUNGS: Auscultation of lungs reveals rhonchorous breath sounds bilaterally. There is no wheezing. ABDOMEN: Soft and nontender. There is no rebound or guarding. EXTREMITIES: There is no leg edema. LABORATORY DATA: White blood cell count is 15.7 and the hemoglobin is 11.7. The platelet count is 518. The BUN to creatinine ratio is normal. The potassium is 3.2. The other electrolytes are within normal limits. IMPRESSION: 1. Viral pneumonia and COVID-19 infection. 2. Possible bacterial pneumonia. 3. Hypertension. 4. Hypothyroidism. 5. Gastroesophageal reflux. PLAN: 1. Continue dexamethasone. 2. Continue antibiotics. 3. Continue oxygen. 4. DVT prophylaxis. 5. Out of bed as tolerated. Jesus Gaines MD [facility]/CYNTHIA /[id number]
[2020-02-16] MEDS: ENOXAPARIN 30 MG/0.3 ML SYR SC SCH (16:22)
--- NOTE | 2020-02-16 16:39 | Progress Note ---
DATE: SUBJECTIVE: Ms. Proctor is still on oxygen 5 L, afebrile, feeling better. REVIEW OF SYSTEMS: She is just weak otherwise. PHYSICAL EXAMINATION: HEENT: She is not icteric. NECK: Supple. CHEST: Crackles. HEART: S1 and S2. ABDOMEN: Soft. Bowel sounds present. EXTREMITIES: No edema. SKIN: No rash. She is on dexamethasone, Rocephin, and azithromycin. This is a day #3. She is also on Lovenox. IMPRESSION: COVID-19, respiratory failure. Continue plan of care, finish 5 days Rocephin, 3 days azithromycin. Dexamethasone is ordered. We will get CTA to rule out PE. We will follow. MD JAY Willson/MODL /[id number]
--- NOTE | 2020-02-16 17:55 | Diagnostic Imaging Report ---
EXAM: CT Chest WITH contrast (PE Protocol) INDICATION: ^r/o pe ^[id number] ^1650 COMPARISON: Chest radiographs 02/14/2020 TECHNIQUE: Chest was scanned utilizing a multidetector helical scanner from the lung apex through the level of the diaphragm after administration of IV contrast. Thin section reconstructions were obtained with special concentration on the pulmonary arteries. Coronal and sagittal reformations were obtained. Pulmonary embolism protocol was performed. IV CONTRAST: 100 mL of Isovue 370 COMPLICATIONS: None RADIATION DOSE: Total DLP: 368.51 mGy*cm Estimated effective dose: (DLP x 0.014 x size factor) mSv CTDIvol has been reviewed. It is below the limits set by the Radiation Protocol Committee (RPC). Dose modulation, iterative reconstruction, and/or weight based adjustment of the mA/kV was utilized to reduce the radiation dose to as low as reasonably achievable. FINDINGS: LINES/ TUBES: None. LUNGS AND AIRWAYS: No filling defect is identified within the pulmonary arteries to the segmental level. Peripheral predominant groundglass opacities with septal thickening throughout both lungs. Additional consolidations in the dependent bilateral lower lobes. Airways are normal. PLEURA: The pleural spaces are clear. HEART AND MEDIASTINUM: The thyroid gland is normal. Few prominent subcentimeter mediastinal and hilar lymph nodes are favored to be reactive. The heart is normal in size. There is no pericardial effusion. There are mild atherosclerotic calcifications in the aorta and coronary arteries.. Main pulmonary artery measures 2.2 cm in diameter and the ascending aorta measures 2.8 cm. UPPER ABDOMEN: Small gastroesophageal hiatal hernia. Otherwise, visualized portions of the upper abdomen are unremarkable given limitations with timing of contrast bolus. BONES: No acute osseous abnormality. Status post anterior spinal fusion at C7-T1 with grossly intact hardware. SOFT TISSUES: Unremarkable. IMPRESSION: 1. No pulmonary emboli. 2. Peripheral predominant groundglass opacities and consolidations throughout both lungs, concerning for multifocal pneumonia and findings are typical for COVID-19. 3. Few prominent subcentimeter mediastinal and hilar lymph nodes, favored to be reactive. Signed by: Dr. Ganesh Harris M.D. on 02/16/2020 5:51 PM
[2020-02-16] MEDS ORDERED: IOPAMIDOL 370 MG/ML 200 ML INFUS..BTL INJ ONE (19:50)
[2020-02-16] MEDS ORDERED: SODIUM CHLORIDE 0.9% 50ML 50 ML ONE (19:50)
[2020-02-16] MEDS: AZITHROMYCIN 250MG/NS 100 ML 100 ML IV SCH (19:57)
[2020-02-16] MEDS ORDERED: SODIUM CHLORIDE 0.9% 250ML 250 ML ONE (20:53)
[2020-02-16] MEDS: SIMVASTATIN 40 MG TAB PO SCH (20:56)
[2020-02-16] MEDS: CEFTRIAXONE SOD 1 GM/NS 50 ML 50 ML IV SCH (20:56)
[2020-02-17] VITALS (7 sets, daily range): BP systolic 135–153; BP diastolic 75–89
[2020-02-17] MEDS: LEVOTHYROXINE SODIUM 75 MCG TAB PO SCH (05:47)
--- NOTE | 2020-02-17 07:00 | NUR ---
COVID POSITIVE PATIENT. SBAR REPORT RECEIVED FROM PM SHIFT RN. PATIENT FOUND LYING IN BED AWAKE/ALERT AND ORIENTED X4 IN NO ACUTE DISTRESS. PATIENT DENIES ANY NEEDS RIGHT NOW. PATIENT WAS EDUCATED ON FALL RISK PRECAUTIONS. PATIENT VERBALIZED UNDERSTANDING. CALL LIGHT AND BELONGINGS PLACED NEARBY. WILL CONTINUE TO MONITOR.
--- NOTE | 2020-02-17 07:03 | NUR ---
REPORT GIVEN TO DAYSHIFT NURSE. ALERT AND ORIENTED. RESTING IN BED. NO SIGNS IV INFILTRATION. BED LOCKED AND IN LOW POSITION. CALL LIGHT WITHIN REACH.
[2020-02-17] MEDS ORDERED: LACTULOSE SYRUP 20 GM/30 ML UDC PO PRN (08:45)
[2020-02-17] MEDS: DEXAMETHASONE SOD PHOS INJ 4 MG/ML VIAL IV SCH (08:45)
[2020-02-17] MEDS: EZETIMIBE 10 MG TAB PO SCH (08:45)
--- NOTE | 2020-02-17 09:42 | Progress Note ---
DATE: 02/17/2020 SUBJECTIVE: Ms. Proctor is a 74-year-old female with history of hypertension, hypothyroid disease, lives at home by herself. Two weeks prior to admission, she tested positive for COVID. She got worse during the week with cough and shortness of breath, so she decided to come to the emergency room. COVID test remains positive. She probably has a superimposed bacterial infection. She is on 4 L of oxygen at present time. PHYSICAL EXAMINATION: GENERAL: She states she is feeling better when she came. She is on 4 L of nasal cannula that she wears. VITAL SIGNS: Temperature is 97.9, blood pressure is 125/80, pulse is 81, O2 saturation is 95%. Coronavirus test came back positive. LABORATORY DATA: Potassium 3.2, creatinine 0.60. White count 15.76, hemoglobin 11.7, hematocrit 33.8. Chest CT done yesterday to rule out PE, was negative for PE, but still have a ground-glass opacities and consolidation through both lungs. The interview was done through a Telehealth. ASSESSMENT: 1. Coronavirus infection. 2. Coronavirus pneumonia. 3. Superimposed bacterial pneumonia. 4. Hypoxemia nasal cannula. 5. Hypothyroidism. 6. Hypertension. PLAN: At present time is to continue IV steroids. Continue IV antibiotics with Rocephin and azithromycin. Continue other home medications. We are going to try to wean her off the oxygen and see how she does. Continue PT, OT. All this was discussed in detail with the patient and with Dr. Gaines. All questions were answered to satisfaction. MD FAHEEM Mendoza/MODL /[id number]
--- NOTE | 2020-02-17 14:10 | Progress Note ---
DATE: Pulmonary Critical Care Progress Note SUBJECTIVE: The patient feels better. She has less dyspnea and less cough. She is not complaining of fevers. PHYSICAL EXAMINATION: VITAL SIGNS: The blood pressure is 135/80 and the saturation is 95% on 5 L. HEENT: Shows no facial swelling or erythema. LYMPHATIC: Shows no submandibular, cervical, or supraclavicular adenopathy. CARDIAC: Reveals regular rate and rhythm with normal S1 and S2. LUNGS: Auscultation of lungs reveals crackles at the bases. There is no wheezing. ABDOMEN: Soft and nontender. There is no rebound or guarding. EXTREMITIES: Show no leg edema or calf tenderness. There is no cyanosis or clubbing. SKIN: Shows no rashes. NEUROLOGICAL: Shows no focal abnormalities. LABORATORY DATA: White blood cell count is 15.76, hemoglobin is 11.7, and the platelet count is 518. BUN to creatinine ratio is normal. IMPRESSION: 1. Viral pneumonia and COVID-19 infection. 2. Possible superimposed bacterial infection. 3. Hypertension. 4. Hypothyroidism. 5. Gastroesophageal reflux. PLAN: 1. Continue current antibiotics. 2. Wean oxygen as tolerated. 3. Out of bed as tolerated. 4. Complete dexamethasone. Jesus Gaines MD [facility]/MODL /[id number]
[2020-02-17] MEDS: ENOXAPARIN 30 MG/0.3 ML SYR SC SCH (17:24)
--- NOTE | 2020-02-17 19:20 | Progress Note ---
DATE: SUBJECTIVE: Ms. Proctor is feeling better. She is still having some shortness of breath and some cough, however, O2 sats 95% on 5 L. PHYSICAL EXAMINATION: GENERAL: Currently alert and oriented. VITAL SIGNS: Stable, currently afebrile. HEENT: She is not icteric. NECK: Supple. CHEST: Clear. HEART: S1 and S2. ABDOMEN: Soft. Bowel sounds present. EXTREMITIES: No edema. We were able to wean her down to 4 L. IMPRESSION: COVID-19, superimposed bacterial pneumonia, respiratory failure, and hypothyroidism, to finish 5 days of Rocephin, 3 days, azithromycin. We can discontinue azithromycin. Continue with Lovenox. Continue with dexamethasone. We will follow. MD JAY Willson/MODL /[id number]
[2020-02-17] MEDS: CEFTRIAXONE SOD 1 GM/NS 50 ML 50 ML IV SCH (20:59)
[2020-02-17] MEDS: SIMVASTATIN 40 MG TAB PO SCH (20:59)
[2020-02-18] VITALS (8 sets, daily range): BP systolic 131–157; BP diastolic 76–89
[2020-02-18 04:52] LABS: BASOPHILS % 0.1 % (0.0-1.0); HEMATOCRIT 34.9 % (34.2-44.1); HEMOGLOBIN 11.9 g/dL (12.0-16.0); LYMPHOCYTES # (AUTO) 0.6 (1.0-3.2); LYMPHOCYTES % 7.4 % (18.0-39.1); MEAN CORPUSCULAR HEMOGLOBIN 29.8 pg (28-32); MEAN CORPUSCULAR HGB CONC 34.1 g/dL (31-35); MEAN CORPUSCULAR VOLUME 87.3 fL (81-99); MONOCYTES # (AUTO) 0.5 (0.2-0.8); MONOCYTES % 6.5 % (4.4-11.3); NEUTROPHILS % 83.9 % (38.7-80.0); PLATELET COUNT 509 x10e3/uL (140-360); RED CELL DISTRIBUTION WIDTH 12.9 % (11.7-14.4)
[2020-02-18 05:12] LABS: ALANINE AMINOTRANSFERASE 88 IU/L (0-55); ALBUMIN 2.4 g/dL (3.5-5.0); ALBUMIN/GLOBULIN RATIO 0.7 (0.8-2.0); ALKALINE PHOSPHATASE 167 IU/L (40-150); ANION GAP 13.2 mmol/L (8-16); BLOOD UREA NITROGEN 12 mg/dL (7-26); BUN/CREATININE RATIO 22 (6-25); CALCIUM 8.1 mg/dL (8.4-10.2); CARBON DIOXIDE 27 mmol/L (22-29); CHLORIDE 102 mmol/L (98-107); CREATININE, SERUM 0.55 mg/dL (0.57-1.11); EST GLOMERULAR FILTRATION RATE > 60 ML/MIN (60-); GLUCOSE 95 mg/dL (74-118); POTASSIUM 3.2 mmol/L (3.5-5.1); SODIUM 139 mmol/L (136-145)
[2020-02-18] MEDS: LEVOTHYROXINE SODIUM 75 MCG TAB PO SCH (05:17)
--- NOTE | 2020-02-18 06:50 | NUR ---
COVID POSITIVE PATIENT. SBAR REPORT RECEIVED FROM PM SHIFT RN. PATIENT FOUND LYING IN BED IN NO ACUTE DISTRESS. PATIENT IS AAOX4 AND ABLE TO MAKE NEEDS KNOWN TO STAFF. PATIENT DENIES NEEDS AT THIS TIME. PATIENT WAS EDUCATED ON FALL RISK PRECAUTIONS AND VERBALIZED UNDERSTANDING. CALL LIGHT AND BELONGINGS PLACED NEARBY. WILL CONTINUE TO MONITOR CLOSELY.
[2020-02-18] MEDS: EZETIMIBE 10 MG TAB PO SCH (09:02)
[2020-02-18] MEDS: DEXAMETHASONE SOD PHOS INJ 4 MG/ML VIAL IV SCH (09:02)
--- NOTE | 2020-02-18 09:49 | Progress Note ---
DATE: SUBJECTIVE: The patient is currently afebrile. Overall, she is slightly improved. PHYSICAL EXAMINATION: VITAL SIGNS: Blood pressure 148/76 and the pulse is 55. Saturation is 97%. HEENT: Shows no facial swelling or erythema. LYMPHATIC: Shows no submandibular, cervical or supraclavicular adenopathy. CARDIAC: Reveals a regular rate and rhythm with normal S1 and S2. LUNGS: Auscultation of lungs reveals crackles at the bases. There is no wheezing. ABDOMEN: Soft and nontender. There is no rebound or guarding. EXTREMITIES: Shows no leg edema or calf tenderness. LABORATORY DATA: White blood cell count is 8.3 and hemoglobin is 11.9. The platelet count is 509. The BUN to creatinine ratio is 12 to 0.55. The other electrolytes are within normal limits. Albumin is 2.4. IMPRESSION: 1. Viral pneumonia and COVID-19 infection. 2. Superimposed bacterial infection. 3. Hypertension. 4. Hypothyroidism. 5. Gastroesophageal reflux. PLAN: 1. Continue current antibiotics. 2. Wean oxygen as tolerated. 3. Complete dexamethasone. 4. Out of bed as tolerated. Jesus Gaines MD [facility]/MODL /[id number]
--- NOTE | 2020-02-18 10:24 | Progress Note ---
DATE: 02/18/2020 SUBJECTIVE: Ms. Proctor is a 74-year-old female with history of hypertension, hypothyroid disease, that she lives at home by herself. She tested positive a couple of weeks ago. She did fine for few days and then she started having some cough and shortness of breath, so she decided to come to the emergency room. She was found to be COVID positive and have a superimposed bacterial infection. She is still on oxygen nasal cannula 4 L/minute. We are going to start trying to taper it down. PHYSICAL EXAMINATION: GENERAL: She is awake and alert. VITAL SIGNS: Temperature is 97.7, blood pressure is 148/76. HEART: Regular rate. LUNGS: Bilateral crackles. LABORATORY DATA: On the blood work, white count is 8.29, hemoglobin is 11.9. Potassium 3.2, creatinine is 0.55. COVID test came back positive. ASSESSMENT: 1. COVID infection. 2. COVID pneumonia. 3. Superimposed bacterial infection. 4. Hypoxemia. 5. Hypothyroidism. 6. Hypertension. PLAN: At present time is to continue IV Rocephin. She already completed the course of azithromycin. Continue dexamethasone. Continue PT, OT. Wean oxygen as tolerated. DVT prophylaxis with Lovenox. If stable she may be able to go home in a couple of days. All this was discussed in detail with the patient. All questions were answered to satisfaction. I spent more than 35 minutes examining patient, reviewing overnight event lab results, and discussing plan of care with her and with Dr. Gaines. MD FAHEEM Mendoza/CYNTHIA /[id number]
--- NOTE | 2020-02-18 11:19 | NUR ---
PATIENT B1HRV=08% ON 2L PER NC
--- NOTE | 2020-02-18 14:46 | NUR ---
INFECTIOUS DISEASE PROGRESS NOTE DR. CRISTIAN BALDWIN SUBJECTIVE: Ms. Proctor is feeling better. She is still having some shortness of breath and some cough, however, O2 sats 95% on 5 L. PHYSICAL EXAMINATION: GENERAL: Currently alert and oriented. VITAL SIGNS: Stable, currently afebrile. HEENT: She is not icteric. NECK: Supple. CHEST: Clear. HEART: S1 and S2. ABDOMEN: Soft. Bowel sounds present. EXTREMITIES: No edema. We were able to wean her down to 4 L. IMPRESSION: COVID-19 superimposed bacterial pneumonia respiratory failure hypothyroidism PLAN to finish 5 days of Rocephin.Continue with Lovenox. Continue with dexamethasone. will need home oxygen Johanny Garrido MSN, FILM PROCESSING UTILITY WORKER, AGANCP-BC discussed with Cristian Baldwin M.D.
[2020-02-18] MEDS: ENOXAPARIN 30 MG/0.3 ML SYR SC SCH (16:39)
--- NOTE | 2020-02-18 18:55 | NUR ---
SBAR REPORT GIVEN TO PM SHIFT RN. PATIENT IS STABLE.
[2020-02-18] MEDS: SIMVASTATIN 40 MG TAB PO SCH (20:04)
[2020-02-18] MEDS: CEFTRIAXONE SOD 1 GM/NS 50 ML 50 ML IV SCH (20:04)
[2020-02-19] VITALS (8 sets, daily range): BP systolic 137–169; BP diastolic 65–90
[2020-02-19] MEDS: LEVOTHYROXINE SODIUM 75 MCG TAB PO SCH (05:12)
--- NOTE | 2020-02-19 07:00 | NUR ---
SHIFT REPORT FROM SPEECH AND LANGUAGE SPECIALIST RN.
[2020-02-19] MEDS: DEXAMETHASONE SOD PHOS INJ 4 MG/ML VIAL IV SCH (08:21)
[2020-02-19] MEDS: EZETIMIBE 10 MG TAB PO SCH (08:21)
[2020-02-19] MEDS ORDERED: KETOROLAC TROMETHAMINE 30 MG/ML VIAL IV NR (09:31)
--- NOTE | 2020-02-19 13:39 | NUR ---
INFECTIOUS DISEASE PROGRESS NOTE DR. CRISTIAN BALDWIN SUBJECTIVE: Ms. Proctor is feeling better. She is still having some shortness of breath and some cough, however, O2 sats 95% on 5 L. PHYSICAL EXAMINATION: GENERAL: Currently alert and oriented. VITAL SIGNS: Stable, currently afebrile. HEENT: She is not icteric. NECK: Supple. CHEST: Clear. HEART: S1 and S2. ABDOMEN: Soft. Bowel sounds present. EXTREMITIES: No edema. We were able to wean her down to 4 L. IMPRESSION: COVID-19 superimposed bacterial pneumonia respiratory failure hypothyroidism
[2020-02-19] MEDS ORDERED: POTASSIUM CHLORIDE 20 MEQ TAB CR PO NR ×2 (14:30→17:30)
--- NOTE | 2020-02-19 16:41 | Progress Note ---
DATE: SUBJECTIVE: Ms. Proctor is improving. She is down to 2 L. REVIEW OF SYSTEMS: Otherwise unremarkable. PHYSICAL EXAMINATION: GENERAL: Currently alert and oriented. VITAL SIGNS: Stable, afebrile. HEENT: She is not icteric. NECK: Supple. CHEST: Crackles bilateral. HEART: S1 and S2. ABDOMEN: Soft. Bowel sounds present. EXTREMITIES: No edema. SKIN: No rash. IMPRESSION: COVID-19, respiratory failure, and pneumonia. Continue to wean down oxygen. By Friday if she is on oxygen, she can go home with home oxygen. We will reassess on Friday if she needs it. The patient was infectious for 3 weeks post infection. MD JAY Willson/CYNTHIA /[id number]
--- NOTE | 2020-02-19 16:47 | Progress Note ---
DATE: 02/19/2020 Pulmonary Medicine Progress Note SUBJECTIVE: The patient currently on 2 L/minute by nasal cannula and this is improved. 94% oxygen saturation. She is walking independently. She had a bowel movement two days ago. She is eating well. Little bit of pain in the chest, but shortness of breath she feels is better. REVIEW OF SYSTEMS: No headaches, no double vision. OBJECTIVE: VITAL SIGNS: Afebrile, vital signs noted reviewed per the chart record. GENERAL: In no acute distress, alert and calm. HEENT: Normocephalic, atraumatic. NECK: Supple. Throat midline. LUNGS: Bilateral air entry, no florentin wheeze. CARDIOVASCULAR: S1, S2. No murmurs, rubs, or gallops. ABDOMEN: Soft and nontender. EXTREMITIES: No clubbing. No cyanosis. No edema. INTEGUMENT: No rash or purpura. LABORATORY DATA: No update today. Of note, the LFTs were mildly increased yesterday. IMPRESSION AND PLAN: 1. COVID-19 pneumonitis. 2. Hypoxemia, improving. 3. Hypokalemia. 4. Elevated LFTs, up trending? 5. Hypoalbuminemia. 6. Nonspecific mediastinal and hilar lymphadenopathy per CT scan. Due to elevated LFTs, we will repeat tomorrow. Home oxygen evaluation. Repeat chest x-ray and biomarkers given the LFT increase. Steroids continue. DVT prophylaxis. MD ALYSON Walker/MODL /[id number]
[2020-02-19] MEDS: ENOXAPARIN 30 MG/0.3 ML SYR SC SCH (17:26)
--- NOTE | 2020-02-19 19:40 | NUR ---
BEDSIDE SHIFT REPORT RECEIVED FROM DAY RN. PT IS ALERT AND ORIENTED X3. PT WATCHING TV. O2 ON PER N/C AT 2.5 L. RESPIRATIONS ARE EVEN AND UNLABORED. TELE WITH PULSE OX ON. AFEBRILE. 20G SL IN RT FA. SITE HEALTHY. PT AMBULATES TO BATHROOM WITH O2 ON. CALL LIGHT WITHIN REACH. BED LOCKED AND IN LOW POSITION.
--- NOTE | 2020-02-19 20:17 | Progress Note ---
DATE: Internal Medicine Progress Note SUBJECTIVE: The patient is doing fine. PHYSICAL EXAMINATION: VITAL SIGNS: Blood pressure 139/78, temperature heart rate 71 per minute, respiratory rate is 20 per minute, oxygen saturation 99%. HEART: Showed regular rhythm. Normal S1, S2 sound. LUNGS: Clear bilaterally. ABDOMEN: Soft. EXTREMITIES: Showed no edema. LABORATORY DATA: On the CBC, white count 9.29, hemoglobin 11.9, hematocrit 34.9, platelet count 509,000. On the BMP; sodium 139, potassium 3.2, chloride 102, CO2 of 27, BUN 12, creatinine 0.55, glucose 195, calcium 8.1, total bilirubin 0.3, AST is elevated at 72, ALT is 88 which is elevated, alkaline phosphatase 167, total protein 5.8, albumin 2.4 globin 3.4. COVID test is positive. IMAGING DATA: Chest CT show the following findings; no pulmonary emboli peripheral predominant ground-glass opacity and consolidation throughout both lungs, concerning for multifocal pneumonia. Findings are typical for COVID-19, few prominent subcentimeter mediastinal lymph node, favored to be reactive. FINAL IMPRESSION: 1. Coronavirus disease-2019 pneumonia. 2. Hypoxemic acute respiratory failure. 3. Hypothyroidism. 4. Hypertension. 5. Elevated liver function test. 6. Hypokalemia. PLAN OF TREATMENT: Potassium is going to replaced. We are going to recheck potassium and magnesium levels later on. Continue ceftriaxone 1 g IV once a day, Tylenol 650 mg q.4 hours as needed for joint point pain or fever, dexamethasone 6 mg IV daily, Lovenox 30 mg subcutaneously daily for DVT prophylaxis, Zetia 10 mg daily, lactulose 2 g twice a day as needed for constipation, levothyroxine 75 mcg daily, simvastatin 40 mg daily. The patient is doing well. Oxygen saturation is under control. We are going to recheck the potassium, magnesium level. Dr. Montemayor is on the case for Infectious Disease also. Dayday Benitez MD [facility]/MODL /[id number]
[2020-02-19] MEDS: CEFTRIAXONE SOD 1 GM/NS 50 ML 50 ML IV SCH (20:30)
[2020-02-19] MEDS: SIMVASTATIN 40 MG TAB PO SCH (20:54)
[2020-02-20] VITALS (8 sets, daily range): BP systolic 125–172; BP diastolic 68–90
--- NOTE | 2020-02-20 05:15 | NUR ---
am labs drawn and sent to lab. Pt tolerated well.
[2020-02-20] MEDS: LEVOTHYROXINE SODIUM 75 MCG TAB PO SCH (05:34)
--- NOTE | 2020-02-20 07:00 | NUR ---
SHIFT REPORT FROM ORTHOPEDIC CODER RN.
[2020-02-20 07:23] LABS: ALANINE AMINOTRANSFERASE 99 IU/L (0-55); ALBUMIN 2.5 g/dL (3.5-5.0); ALBUMIN/GLOBULIN RATIO 0.7 (0.8-2.0); ALKALINE PHOSPHATASE 140 IU/L (40-150); ANION GAP 11.1 mmol/L (8-16); BLOOD UREA NITROGEN 16 mg/dL (7-26); BUN/CREATININE RATIO 30 (6-25); CALCIUM 8.3 mg/dL (8.4-10.2); CARBON DIOXIDE 26 mmol/L (22-29); CHLORIDE 102 mmol/L (98-107); CREATININE, SERUM 0.54 mg/dL (0.57-1.11); EST GLOMERULAR FILTRATION RATE > 60 ML/MIN (60-); GLUCOSE 81 mg/dL (74-118); POTASSIUM 4.1 mmol/L (3.5-5.1); SODIUM 135 mmol/L (136-145)
[2020-02-20 08:21] LABS: TRIGLYCERIDES 151 MG/DL (0-149)
[2020-02-20] MEDS: DEXAMETHASONE SOD PHOS INJ 4 MG/ML VIAL IV SCH (08:23)
[2020-02-20] MEDS: EZETIMIBE 10 MG TAB PO SCH (08:23)
--- NOTE | 2020-02-20 10:12 | Diagnostic Imaging Report ---
EXAMINATION: CHEST SINGLE (PORTABLE) INDICATION: Follow-up pneumonia COMPARISON: Multiple prior chest x-rays including most recent on 02/14/2020. Chest CT on 02/16/2020. FINDINGS: TUBES and LINES: None. LUNGS: No significant interval change in multifocal interstitial and patchy airspace opacities. PLEURA: No pleural effusion or pneumothorax. HEART AND MEDIASTINUM: The cardiomediastinal silhouette is unchanged. BONES AND SOFT TISSUES: No acute osseous lesion. Partially imaged cervical spine hardware. Soft tissues are unremarkable. UPPER ABDOMEN: No free air under the diaphragm. IMPRESSION: No significant interval change in diffuse interstitial and patchy airspace opacities compatible with multifocal pneumonia. Signed by: Liza Chung MD on 02/20/2020 10:09 AM
--- NOTE | 2020-02-20 11:00 | NUR ---
PT ABLE TO SHOWER SELF AND TAKE CARE OF ADL'S. BED LINENS CHANGED. PT DENIES FURTHER NEEDS.
--- NOTE | 2020-02-20 13:17 | NUR ---
Ms. Proctor is improving. She is down to 2 L. REVIEW OF SYSTEMS: Otherwise unremarkable. PHYSICAL EXAMINATION: GENERAL: Currently alert and oriented. VITAL SIGNS: Stable, afebrile. HEENT: She is not icteric. NECK: Supple. CHEST: Crackles bilateral. HEART: S1 and S2. ABDOMEN: Soft. Bowel sounds present. EXTREMITIES: No edema. SKIN: No rash. IMPRESSION: COVID-19, respiratory failure, and pneumonia. Continue to wean down oxygen. By Friday if she is on oxygen, she can go home with home oxygen. We will reassess on Friday if she needs it. The patient was infectious for 3 weeks post infection.
--- NOTE | 2020-02-20 14:09 | NUR ---
DATE: 02/20/2020 Pulmonary Medicine Progress Note SUBJECTIVE: The patient currently on 3 L/minute by nasal cannula 92% oxygen saturation. desaturated to 83% on walking eating REVIEW OF SYSTEMS: No headaches, no double vision. OBJECTIVE: VITAL SIGNS: vital signs noted reviewed per the chart record. GENERAL: In no acute distress, alert and calm. HEENT: Normocephalic, atraumatic. NECK: Supple. Throat midline. LUNGS: Bilateral air entry, no florentin wheeze. CARDIOVASCULAR: S1, S2. No murmurs, rubs, or gallops. ABDOMEN: Soft and nontender. EXTREMITIES: No clubbing. No cyanosis. No edema. INTEGUMENT: No rash or purpura. LABORATORY DATA: fibrinogen 386 IMPRESSION AND PLAN: 1. COVID-19 pneumonitis. 2. Hypoxemia, improving. 3. Hypokalemia. 4. Elevated LFTs, up trending? COVID 19 related? 5. Hypoalbuminemia. 6. Nonspecific mediastinal and hilar lymphadenopathy per CT scan. 7. HLD Trend LFTs Home oxygen evaluation done CXR stabilized, repeat intermittently/prn Steroids continue. DVT prophylaxis.
--- NOTE | 2020-02-20 14:20 | Progress Note ---
DATE: Internal Medicine Progress Note. SUBJECTIVE: The patient is doing a lot better today. PHYSICAL EXAMINATION: HEART: Showed regular rhythm. Normal S1, S2 sound. LUNGS: Clear bilaterally. ABDOMEN: Soft. EXTREMITIES: Show no edema. VITAL SIGNS: Blood pressure 126/77, temperature 97.7, heart rate 85 per minute, respiratory rate 20 per minute, O2 saturation 96%. She has been afebrile for several days. LABORATORY DATA: On the CBC, white blood count is normal at 8.29, hemoglobin 10.9, hematocrit 34.9, platelet count 509,000. On the BMP; sodium 135, potassium 4.1, chloride 102, CO2 of 26, BUN is 16, creatinine 0.54, GFR of more than 60, glucose is 81, calcium 8.3, magnesium 2.0, total bilirubin 0.3, AST 44, ALT 99, alkaline phosphatase 104. IMPRESSION: 1. COVID-19 pneumonia. 2. Acute hypoxic respiratory failure. 3. Hypothyroidism. 4. Hypertension. 5. Elevated LFTs. 6. Hypokalemia. TREATMENT AND PLAN: Potassium has been replaced. Potassium back to normal. Continue Tylenol 650 mg q.4 hours as needed for mild pain or fever. Dexamethasone 6 mg IV daily, Lovenox 30 mg subcutaneously daily, Zetia 10 mg daily, lactulose 20 g twice a day as needed for constipation, levothyroxine 75 mcg daily, simvastatin 40 mg. Continue droplet and contact isolation for now. MD ADOLFO Neal/CYNTHIA /[id number]
--- NOTE | 2020-02-20 15:51 | Progress Note ---
DATE: SUBJECTIVE: Ms. Proctor is feeling better. Her oxygen is down to 3 L. Her review of systems is otherwise unremarkable. She still drop her other side as she walks, but overall she is feeling better. PHYSICAL EXAMINATION: GENERAL: She is currently alert and oriented. VITAL SIGNS: Stable, currently afebrile. HEENT: She is not icteric. NECK: Supple. CHEST: Clear. HEART: S1, S2. ABDOMEN: Soft. Bowel sounds present. EXTREMITIES: No edema. SKIN: There is no rash. LABORATORY DATA: Her white count is 8.19, hemoglobin 11.9. Sodium 135, potassium 4.1, BUN 16. Her AST is 44 and ALT is 99. IMPRESSION: 1. COVID-19. 2. Elevated liver enzyme. 3. Hypoxemia. PLAN: We will get ultrasound of the abdomen, the liver was with hepatitis A, B and C. Follow up as an outpatient. COVID-19 pneumonia. Continue dexamethasone, finish 10 days out. Continue with Lovenox while she is in the hospital. If she continued to improve, probably can go home with home oxygen. We will follow. The patient is infectious for 21 days. MD JAY Willson/CYNTHIA /[id number]
[2020-02-20] MEDS: ENOXAPARIN 30 MG/0.3 ML SYR SC SCH (17:20)
[2020-02-20] MEDS ORDERED: PREDNISONE 20 MG TAB PO ONE (18:00)
--- NOTE | 2020-02-20 19:45 | NUR ---
BEDSIDE SHIFT REPORT RECEIVED FROM DAY RN. PT IS ALERT AND ORIENTED X3. TELE ON. REPIRATIONS ARE EVEN AND UNLABORED. O2 2l PER N/C ON. VOIDING WITHOUT DIFFICULTY. 20 G SL IN RT FA- SITE HEALTHY. PT DENIES PAIN. CALL LIGHT WITHIN REACH. BED IN LOW POSITION.
[2020-02-20] MEDS: SIMVASTATIN 40 MG TAB PO SCH (20:23)
[2020-02-21] VITALS (10 sets, daily range): BP systolic 125–155; BP diastolic 66–85
[2020-02-21] MEDS: LEVOTHYROXINE SODIUM 75 MCG TAB PO SCH (05:39)
[2020-02-21 06:35] LABS: ALBUMIN 2.7 g/dL (3.5-5.0); BILIRUBIN,DIRECT 0.2 mg/dL (0.0-0.5)
--- NOTE | 2020-02-21 07:00 | NUR ---
SHIFT REPORT FROM CAD DETAILER RN.
[2020-02-21] MEDS: EZETIMIBE 10 MG TAB PO SCH (08:30)
[2020-02-21] MEDS: DEXAMETHASONE SOD PHOS INJ 4 MG/ML VIAL IV SCH (08:30)
--- NOTE | 2020-02-21 10:12 | NUR ---
ORTHOSTATIC B/P DONE WELL O2 EVAL.
--- NOTE | 2020-02-21 10:43 | Progress Note ---
DATE: 02/21/2020 SUBJECTIVE: Ms. Proctor is a 74-year-old female with history of hypertension and hypothyroidism, lives at home by herself, was diagnosed with COVID a couple of weeks ago. She started getting worse with cough and shortness of breath. Came to the emergency room, she was COVID positive, suspected superimposed bacterial infection. She is still on O2 nasal cannula. When she moves around, she has rounds of ventricular tachycardia, so we are going to get a Cardiology consult for her. PHYSICAL EXAMINATION: GENERAL: She is feeling better. She wants to go home. Good appetite. VITAL SIGNS: Temperature is 97.9, blood pressure 154/85, heart is regular rate 85 per minute, and respiratory rate is 18. LABORATORY DATA: On the blood work, potassium is 4.1, creatinine is 0.54, and glucose is 81. Liver enzymes are little elevated. Hepatitis profile is pending. White count 8.29, hemoglobin 11.9, and hematocrit 34.9. The x-ray done on the 1st did not show any worsening or improvement of the infiltrates. ASSESSMENT: 1. Coronavirus disease infection. 2. Coronavirus disease pneumonia. 3. Superimposed bacterial pneumonia. 4. Acute respiratory hypoxemic failure. 5. Hypothyroidism. 6. Hypertension. 7. Elevated liver enzymes. PLAN: At present time is to continue IV antibiotics. Continue dexamethasone. PT, OT. O2 nasal cannula as needed. Lovenox for DVT prophylaxis. Hepatitis profile is pending, runs of ventricular tachycardia, so we are going to get a Cardiology consult. All this was discussed in detail with the patient. All questions were answered to satisfaction. I spent more than 30 minutes discussing the plan of care with the patient, reviewing overnight event, and lab results. MD FAHEEM Mendoza/MODL /[id number]
[2020-02-21] MEDS ORDERED: SODIUM CHLORIDE 0.9% 250ML 250 ML ONE (10:47)
--- NOTE | 2020-02-21 11:00 | NUR ---
SPOKE TO DR. DAVIS IN NURSES STATION ABOUT DR. SINGH CONSULT. DR. DAVIS ORDERED AN EGD AND AND ECHO MAX,
--- NOTE | 2020-02-21 11:44 | Progress Note ---
DATE: SUBJECTIVE: The patient is now feeling better. However, when walking to the bathroom this morning, she had a run of ventricular tachycardia. PHYSICAL EXAMINATION: VITAL SIGNS: The patient is afebrile. The blood pressure is 141/75, saturation is 97%, and the pulse is 85. HEENT: Shows no facial swelling or erythema. LYMPHATIC: Shows no submandibular, cervical, or supraclavicular adenopathy. CARDIAC: Reveals regular rate and rhythm with normal S1 and S2. LUNGS: Auscultation of lungs reveals rhonchorous breath sounds bilaterally. There is no wheezing. ABDOMEN: Soft and nontender. There is no rebound or guarding. EXTREMITIES: Show no leg edema or calf tenderness. There is no cyanosis or clubbing. SKIN: Shows no rashes. NEUROLOGICAL: Shows no focal abnormalities. LABORATORY DATA: White blood cell count is 8.3, hemoglobin is 11.9, and platelet count is 509. BUN to creatinine ratio is 16 to 0.59. Other electrolytes are within normal limits. Albumin is 2.7. ALT is 100 and AST is 40. IMPRESSION: 1. COVID-19 and viral pneumonia. 2. Ventricular tachycardia. 3. Nonspecific mediastinal hilar adenopathy. PLAN: 1. Await Cardiology evaluation. 2. Continue to wean oxygen. 3. Complete antibiotics and dexamethasone. Jesus Gaines MD [facility]/MODL /[id number]
--- NOTE | 2020-02-21 11:52 | NUR ---
INFECTIOUS DISEASE PROGRESS NOTE DR. CRISTIAN BALDWIN SUBJECTIVE: + Fatigue, Her review of systems is otherwise unremarkable. She still drop her other side as she walks, but overall she is feeling better. PHYSICAL EXAMINATION: GENERAL: She is currently alert and oriented. VITAL SIGNS: Stable, currently afebrile. HEENT: She is not icteric. NECK: Supple. no JVD CHEST: diminished, symmetric expansion HEART: S1, S2. ABDOMEN: Soft. Bowel sounds present. EXTREMITIES: No edema. SKIN: There is no rash. LABORATORY DATA: reviewed RADIOLOGY: reviewed IMPRESSION: 1. COVID-19. 2. Elevated liver enzyme. 3. Hypoxemia. PLAN: We will get ultrasound of the abdomen, the liver was with hepatitis A, B and C. Follow up as an outpatient. COVID-19 pneumonia. Continue dexamethasone, finish 10 days out. Continue with Lovenox while she is in the hospital. If she continued to improve, probably can go home with home oxygen. We will follow. The patient is infectious for 21 days. Johanny Garrido MSN, CADET [employer]K, AGACNP-BC Cristian Baldwin M.D.
--- NOTE | 2020-02-21 14:11 | Diagnostic Imaging Report ---
EXAM: Complete Abdominal Ultrasound INDICATION: Liver disease ^R/O LIVER DISEASE COMPARISON: CT scan September 16, 2018. TECHNIQUE: Transverse and longitudinal images of the upper abdomen were obtained. FINDINGS: Liver: Size: 12.2 cm in the right midclavicular line, normal Appearance: Normal echogenicity, smooth contour Mass: No focal masses Spleen: Size: 8.9 cm in length, normal Echogenicity: Normal Mass: No focal masses Gallbladder: Prior cholecystectomy Sonographic James's Sign: Negative Bile Ducts: Intrahepatic Ducts: No dilatation Extrahepatic Ducts: Common bile duct measures 0.7 cm, prominent likely due to reservoir effect from cholecystectomy Pancreas: Visualized portions of the pancreatic head, neck and proximal body are normal. Kidneys: Length: Right 9.8 cm Left 9.9 cm Echogenicity: Normal Collecting System: No hydronephrosis Stone: None Cyst/Mass: None Vessels: Aorta: Visualized portions are normal Inferior Vena Cava: Visualized portions are normal Main Portal Vein: 1.1 cm, normal size with hepatopetal flow. Free Fluid: No ascites or pleural effusion IMPRESSION: Cholecystectomy. Prominent common bile duct likely due to reservoir effect from cholecystectomy. No ultrasonographic abnormality seen in the liver. Signed by: Dr. Delfino Haskins M.D. on 02/21/2020 2:07 PM
--- NOTE | 2020-02-21 15:19 | NUR ---
Received order for home oxygen. Home O2 eval was completed, pt 92% on RA, 88% being exerted on RA, improved to 96% on 2L. CM called and spoke to pt over the phone. Pt is agreeable to use any company that takes her insurance. Pt agreeable to have referral sent to [facility]. Choice letter placed in front of chart. Discussed IMM letter with her. Pt verbalized understanding. Signed copy placed in chart. Copy of IMM and choice letter given to YAYA Hernandez to give to pt. Referral for home oxygen sent to [facility]. Tamir with [facility] was informed of referral and will let CM know once approved to deliver portable oxygen.
--- NOTE | 2020-02-21 16:22 | NUR ---
Per Tamir with [employer], pt is approved for delivery of portable oxygen. Portable oxygen tank given to YAYA Hernandez. ANTONIO printed instructions w/ [employer] contact number for pt to call on discharge for delivery of concentrator. ANTONIO also called and spoke with pt and instructed her to call [employer] on discharge. She verbalized understanding.
[2020-02-21] MEDS: ENOXAPARIN 30 MG/0.3 ML SYR SC SCH (17:17)
[2020-02-21] MEDS: SIMVASTATIN 40 MG TAB PO SCH (21:00)
--- NOTE | 2020-02-22 01:07 | Consultation ---
DATE OF CONSULTATION: 02/21/2020 Cardiology Consultation Note REASON FOR CONSULT: Nonsustained ventricular tachycardia. CHIEF COMPLAINT: COVID-19 pneumonia. HISTORY OF PRESENT ILLNESS: The patient is a 74-year-old female, presented with COVID-19 pneumonia, was treated by Pulmonary, was to be discharged, however, noted to have a nonsustained runs of VT last night and this morning. The patient denies any chest pains. Prior history of heart failure and CAD. REVIEW OF SYSTEMS: As per HPI, otherwise negative. PAST MEDICAL HISTORY: Hypertension and hyperlipidemia. SOCIAL HISTORY: Noncontributory. FAMILY HISTORY: Noncontributory. OUTPATIENT MEDICATIONS: Reviewed. ALLERGIES: ALLERGIC TO QUININE. PHYSICAL EXAMINATION: VITAL SIGNS: Temperature afebrile, pulse 82, respiratory rate 19, blood pressure 125/66, saturating 96% on nasal cannula. GENERAL: Elderly female, in no acute distress. CARDIOVASCULAR: Regular rate and rhythm. No murmurs, rubs, or gallops. LUNGS: Coarse breath sounds bilaterally. ABDOMEN: Soft, nontender, and nondistended. INPATIENT MEDICATIONS: Reviewed. LABORATORY DATA: Reviewed. Potassium 4.1, was 3.2 earlier. Magnesium is 2.0. IMAGING DATA: Reviewed. Echocardiogram shows normal LV ejection fraction. No significant valvular abnormalities. EKG reviewed. No acute ischemic changes. ASSESSMENT/PLAN: Nonsustained ventricular tachycardia. PLAN: EF is preserved. No indication of myocardial ischemia. Continue supportive care for now. Once COVID-19 resolves, the patient can get outpatient stress testing. Continue on low-dose metoprolol, if blood pressure allows, we will start on 25 mg daily. Okay to be discharged from cardiovascular standpoint with outpatient followup. Thank you for this consult. We will continue to follow. MD ALINA Hurst/CYNTHIA /[id number]
[2020-02-22 04:00] VITALS: BP 140/82
[2020-02-22] MEDS: LEVOTHYROXINE SODIUM 75 MCG TAB PO SCH (06:16)
--- NOTE | 2020-02-22 08:03 | NUR ---
RECEIVED NOTE PT IS GOING TO DAUGHTERS HOME, FAXED AND CALLED [facility] TO LET KNOW ABOUT ADDRESS CHANGE.
[2020-02-22 08:16] VITALS: BP 152/81
[2020-02-22 08:18] VITALS: BP 152/81
[2020-02-22] MEDS ORDERED: METOPROLOL SUCCINATE 25 MG TAB XL PO SCH (09:00)
[2020-02-22] MEDS: EZETIMIBE 10 MG TAB PO SCH (09:02)
[2020-02-22] MEDS: DEXAMETHASONE SOD PHOS INJ 4 MG/ML VIAL IV SCH (09:02)
--- NOTE | 2020-02-22 09:38 | Discharge Summary ---
HOSPITAL COURSE: Ms. Proctor is a 74-year-old female with history of hypertension, hypothyroidism, diagnosed with COVID prior to admission, came to the emergency room complaining of cough and shortness of breath. She was found to have superimposed bacterial pneumonia. She is still on O2 nasal cannula. She completed antibiotics and dexamethasone and the plan is to discharge her home with home O2. PHYSICAL EXAMINATION: GENERAL: Feeling better. VITAL SIGNS: Temperature is 98.1, blood pressure 152/81, pulse is 81, respiratory rate 16. LABORATORY DATA: On the blood work, white count is 8.29, hemoglobin 11.9, hematocrit 34.9. COVID test came back positive. Hepatitis profile is pending. Potassium 4.1, creatinine 0.54, glucose is 81. Abdominal ultrasound done yesterday shows cholecystectomy, prominent bile duct, likely due to reservoir effect from cholecystectomy. No ultrasonographic abnormalities of the liver. DISCHARGE DIAGNOSES: 1. COVID infection. 2. COVID pneumonia. 3. Bacterial pneumonia. 4. Acute hypoxic respiratory failure, improving. 5. Hypothyroidism. 6. Hypertension. 7. Elevated liver enzymes. PLAN: At present time is the patient to complete an antibiotics and dexamethasone. She is going to go home with O2 nasal cannula and continue home medications. Abdominal ultrasound showed normal liver. Hepatitis profile is still pending. The patient has an episode of nonsustained ventricular tachycardia. She was seen by Cardiology and is okay to discharge the patient home and follow her up as an outpatient. Please see home medication reconciliation list. All this was discussed with the patient. All questions were answered to satisfaction. I spent more than 30 minutes discussing plan of care with the patient, reviewing overnight event and lab results. MD FAHEEM Mendoza/CYNTHIA /[id number]
--- NOTE | 2020-02-22 11:15 | Progress Note ---
DATE: SUBJECTIVE: The patient is afebrile. She is now on 2 L and is saturating in the low 90s. She was evaluated by Cardiology yesterday. PHYSICAL EXAMINATION: VITAL SIGNS: Blood pressure is 152/81, saturation is 92% on 2 L and the pulse is 81. HEENT: No facial swelling or erythema. CARDIAC: Regular rate and rhythm with normal S1, S2. LUNGS: Auscultation of lungs shows decreased breath sounds at the bases. There is no wheezing. ABDOMEN: Soft, nontender. There is no rebound or guarding. EXTREMITIES: No leg edema or calf tenderness. There is no cyanosis or clubbing. SKIN: No rashes. LABORATORY DATA: White blood cell count is 8.3, hemoglobin is 11.9, and the platelet count is 509. The BUN to creatinine ratio is 16 to 0.54 and the other electrolytes within normal limits. Albumin is 2.7. IMPRESSION: 1. Coronavirus disease-19 and viral pneumonia. 2. Nonspecific hilar adenopathy. 3. Nonsustained ventricular tachycardia. PLAN: 1. Discharge home. 2. Increase exercise as tolerated. 3. Complete dexamethasone. 4. Follow up in 1-2 weeks. MD NADIR Greene/CYNTHIA /[id number]
[2020-02-22 11:43] VITALS: BP 130/72
--- NOTE | 2020-02-22 12:14 | NUR ---
INFECTIOUS DISEASE PROGRESS NOTE DR. CRISTIAN BALDWIN SUBJECTIVE: + Fatigue, Her review of systems is otherwise unremarkable. She still drop her other side as she walks, but overall she is feeling better. PHYSICAL EXAMINATION: GENERAL: She is currently alert and oriented. VITAL SIGNS: Stable, currently afebrile. HEENT: She is not icteric. NECK: Supple. no JVD CHEST: diminished, symmetric expansion HEART: S1, S2. ABDOMEN: Soft. Bowel sounds present. EXTREMITIES: No edema. SKIN: There is no rash. LABORATORY DATA: reviewed RADIOLOGY: reviewed IMPRESSION: 1. COVID-19. 2. Elevated liver enzyme. 3. Hypoxemia. PLAN: IMPRESSION: Cholecystectomy. Prominent common bile duct likely due to reservoir effect from cholecystectomy. Follow up as an outpatient. Continue dexamethasone, finish 10 days out. Continue with Lovenox while she is in the hospital. If she continued to improve, probably can go home with home oxygen. We will follow. The patient is infectious for 21 days. Johanny Garrido MSN, HIDE AND SKIN CLASSER, AGACNP-BC Cristian Baldwin M.D.
[2020-02-22] MEDS ORDERED: METOPROLOL SUCC25 MG (13:58)
--- NOTE | 2020-02-22 15:04 | NUR ---
patient discharged. IV access removed. patient and daughter showed the home oxygen tank and denied any questions. aware that they are to call [employer] once arriving home. patient given discharge instructions, prescription and aware of follow up appts needed. patient wheeled off unit to [employer] personal vehicle.
--- OUTSIDE RECORDS SUMMARY | 2020-02-24 16:50 | XMS REPORT | Continuity of Care Document ---
Author Author [facility] t Organization [facility] Address [address] [place] [address] Phone Unavailable Care Team Providers Care Nurse Educator Name Role Phone NONSTAFF PCP Unavailable BOCCARDO, NATASHA Attphys Unavailable AMADO, EKNDALL Attphys Unavailable MCLEOD MAGGIE Attphys Unavailable PAKZABAN, CATRACHITO Attphys Unavailable BOCCARDO, NATASHA Admphys Unavailable AMADO, KENDALL Admphys Unavailable Payers Payer Name Policy Type Policy Number Effective Date Expiration Date [facility] [place] [id number] 2009 00:00:00 [facility] [employer] [id number] 2009 00:00:00 [facility] [id number] [facility] Problems Condition Name Condition Details Condition Category Status Onset Date Resolution Date Last Treatment Date Treating Clinician Comments Source Senile purpura Senile Purpura Problem Active 2019-01-25 00:00:00 [facility] Depressive disorder Depressive Disorder Problem Active 2019-01-25 00:00 :00 [facility] Peripheral vascular disease Peripheral Vascular Disease Problem Active 2019-01-25 00:00:00 [facility] Spinal stenosis of lumbar region Spinal Stenosis of Lumbar Regio n Problem Active 2018-08-24 00:00:[address] [facility] Hypothyroidism Hypothyroidism Problem Active 2016-01-11 00:00:00 [facility] Hyperlipidemia Hyperlipidemia Problem Active 2016-01-11 00:00:00 [facility] Hypertensive disorder Hypertensive Disorder Problem Active 201 09-27-21 00:00:00 [facility] ractice Gastroesophageal reflux disease Gastroesophageal Reflux Disease Pro blem Active 2016-01-11 00:00:00 [facility] Osteoarthritis Osteoarthritis Problem Active 2016-01-11 00:00:00 [facility] Urinary incontinence Urinary Incontinence Problem Active 00:00:00 [facility] Pract ice Paronychia Paronychia Problem Active [facility] Abdominal pain Abdominal pain Problem Active [facility] Hyponatremia Hyponatremia Problem Active [facility] Allergies, Adverse Reactions, Alerts Allergy Name Allergy Type Status Severity Reaction(s) Onset Date Inacti ve Date Treating Clinician Comments Source quinine DA Active SV 2016-06-12 00:00:00 [facility] Quinine Allergy to Substance Active Severe FLU-LIKE SYMPTO MS 2010-09-14 00:00:00 [facility] Social History Smoking Status Start Date Stop Date Source Former Smoker [facility] lise Medications Ordered Medication Name Filled Medication Name Start Date Stop Da te Current Medication? Ordering Clinician Indication Dosage Frequency Signature (SIG) Comments Components Source clobetasol 0.05 % scalp solution BID clobetasol 0.05 % scalp soluti on BID No clobetasol 0.05 % scalp solution BID [facility] cranberry extract 250 mg capsule Take 1 capsule every day by oral route. cranberry extract 250 mg capsule Take 1 capsule every day by oral route. No 1capsule(s) Q1D cranberry extrac t 250 mg capsule Take 1 capsule every day by oral route. [facility] Dex[facility] 60 mg capsule, delayed release Take 1 capsule every day by oral route. Dexilant 60 mg capsule, delayed release Take 1 capsule every day by oral route. No 1capsule(s) Q1D Dexilant 60 mg capsule, delayed release Take 1 capsule every day by oral route. [facility] ezetimibe 10 mg tablet TAKE 1 TABLET BY MOUTH EVERY DA Y ezetimibe 10 mg tablet TAKE 1 TABLET BY MOUTH EVERY DAY No ezetimibe 10 mg tablet TAKE 1 TABLET BY MOUTH EVERY DAY [facility] levothyroxine 75 mcg tablet TAKE 1 TABLET BY MOUTH BINH DIRECTED levothyroxine 75 mcg tablet TAKE 1 TABLET BY MOUTH EVERY DAY DIRECTED No levothyroxine 75 mcg tablet TAKE 1 TABLET BY MOUTH EVERY DAY DIRECTED [facility] lisinopril 40 mg tablet Take 1 tablet ev julio day by oral route as directed for 90 days. lisinopril 40 mg tablet Take 1 tablet ev julio day by oral route as directed for 90 days. No lisinopril 40 mg tablet Take 1 tablet every day by oral route as directed for 90 days. [facility] meloxicam 15 mg tablet TAKE 1 TABLET BY MOUTH EVERY DA Y NEEDED meloxicam 15 mg tablet TAKE 1 TABLET BY MOUTH EVERY DAY NEEDED No meloxicam 15 mg tablet TAKE 1 TABLET BY MOUTH EVERY DAY NEEDED [facility] metoclopramide 10 mg tablet Take 1 tablet 4 times a da y by oral route. metoclopramide 10 mg tablet Take 1 tablet 4 times a day by oral route. No metoclopramide 10 mg tablet Take 1 tablet 4 janine es a day by oral route. [facility] Myrbetriq 25 mg tablet,extended release Take 1 tablet every day by oral route as directed for 30 days. Myrbetriq 25 mg tablet,extended release Take 1 tablet every day by oral route as directed for 30 days. No Myrbetriq 25 mg tablet,extended release Take 1 tablet every day by oral route as directed for 30 days. [facility] Pract ice oxycodone-acetaminophen 7.5 mg-325 mg ta blet Take 1 tablet every 6-8 hours by oral route as needed. oxycodone-acetaminophen 7.5 mg-325 mg ta blet Take 1 tablet every 6-8 hours by oral route as needed. No oxycodone-acetaminophen 7.5 mg-325 mg tablet Take 1 tablet every 6-8 hours by oral route as needed. [facility] pregabalin 150 mg capsule Take 1 capsule twice a day b y oral route. pregabalin 150 mg capsule Take 1 capsule twice a day by oral route. No pregabalin 150 mg capsule Take 1 capsule twice a day by oral route. [facility] simvastatin 40 mg tablet TAKE 1 TABLET(S) EVERY DAY BY ORAL ROUTE FOR 90 DAYS. simvastatin 40 mg tablet TAKE 1 TABLET(S) EVERY DAY BY ORAL ROUTE FOR 90 DAYS. No simvastati n 40 mg tablet TAKE 1 TABLET(S) EVERY DAY BY ORAL ROUTE FOR 90 DAYS. [facility] Pract ice triamcinolone acetonide 0.5 % topical oi ntment APPLY A THIN LAYER TO THE AFFECTED AREA(S) BY TOPICAL ROUTE 2 TIMES PER DAY FOR 2 WEEKS triamcinolone acetonide 0.5 % topical ointment APPLY A THIN LAYER TO THE AFFECTED AREA(S) BY TOPICAL ROUTE 2 TIMES PER DAY FOR 2 WEEKS No triamcinolone acetonide 0.5 % topical ointment APPLY A THIN LAYER TO THE AFFECTED AREA(S) BY TOPICAL ROUTE 2 TIMES PER DAY FOR 2 WEEKS [facility] Citalopram Hydrobromide (Citalopram Hbr) 20 Mg Tablet Citalopram Hydrobromide (Citalopram Hbr) 20 Mg Tablet Yes 20 Daily [facility] Dexlansoprazole (Dexilant) 60 Mg Khurram. Dexlansopra zole (Dexilant) 60 Mg Cap. Yes 60 Daily [facility] Ezetimibe (Zetia) 10 Mg Tablet Ezetimibe (Zetia) 10 Mg Tablet Yes 10 Daily [facility] Gabapentin 300 Mg Capsule Gabapentin 300 Mg Capsule Yes 300 Every 4 Hours [facility] Levothyroxine Sodium (Synthroid) 75 Mcg Tab Levothyrox ine Sodium (Synthroid) 75 Mcg Tab Yes 75 Daily [facility] Lisinopril 10 Mg Tablet Lisinopril 10 Mg Tablet Yes 10 Twice A Day [facility] Meloxicam 7.5 Mg Tablet Meloxicam 7.5 Mg Tablet Yes 15 Daily [facility] Simvastatin 40 Mg Tablet Simvastatin 40 Mg Tablet Yes 40 Today At 9:00PM [facility] Solifenacin Succinate (Vesicare) 5 Mg Tablet Solifenac in Succinate (Vesicare) 5 Mg Tablet Yes 10 Daily [facility] Lisinopril/Hydrochlorothiazide (Lisinopr il-Hctz 20-25 Mg Tab) 1 Each Tablet, 1 Tab Oral Lisinopril/Hydrochlorothiazide (Lisinopr il-Hctz 20-25 Mg Tab) 1 Each Tablet, 1 Tab Oral 2018-09-22 00:00:00 No 1 Daily [facility] Dexlansoprazole (Dexilant) 60 Mg Cap., 60 Mg Oral Dexlansoprazole (Dexilant) 60 Mg Cap., 60 Mg Oral 2018-09-21 00:00:00 No 60 Daily [facility] Ezetimibe (Zetia) 10 Mg Tablet, 10 Mg Oral Ezetimibe ( Zetia) 10 Mg Tablet, 10 Mg Oral 2018-09-21 00:00:00 No 10 Daily [facility] Gabapentin 300 Mg Capsule, 300 Mg Oral Gabapentin 300 Mg Capsule , 300 Mg Oral 2018-09-21 00:00:00 No 300 Twice A Day [facility] Levothyroxine Sodium 75 Mcg Tablet, 75 Mcg Oral Levoth yroxine Sodium 75 Mcg Tablet, 75 Mcg Oral 2018-09-21 00:00:00 No 75 Danyell y [facility] Lisinopril/Hydrochlorothiazide (Lisinopril-Hctz 20-25 Mg Tab) 1 Each Tablet, Lisinopril/Hydrochlorothiazide (Lisinopril-Hctz 20-25 Mg Tab) 1 Each Tablet, 2018-09-21 00:00:00 No Daily [facility] Meloxicam 7.5 Mg Tablet, 15 Mg Oral Meloxicam 7.5 Mg Tablet, 15 Mg Oral 2018-09-21 00:00:00 No 15 Daily [facility] Metoclopramide Hcl (Reglan) 10 Mg Tablet, Metocloprami de Hcl (Reglan) 10 Mg Tablet, 2018-09-21 00:00:00 No [facility] Simvastatin 40 Mg Tablet, 40 Mg Oral Simvastatin 40 Mg Tablet, 4 0 Mg Oral 2018-09-21 00:00:00 No 40 Bedtime [facility] Solifenacin Succinate (Vesicare) 5 Mg Tablet, 10 Mg Or al Solifenacin Succinate (Vesicare) 5 Mg Tablet, 10 Mg Oral 2018-09-21 00:00:00 No 1 0 Daily [facility] Escitalopram Oxalate (Lexapro) 10 Mg Tablet, 20 Mg Ora l Escitalopram Oxalate (Lexapro) 10 Mg Tablet, 20 Mg Oral 2018-09-17 00:00:00 No 2 0 Daily [facility] Hydrocodone Bit/Acetaminophen ([place] 7.5-325 Tablet) 1 Each Tablet, 1 Ea Oral Hydrocodone Bit/Acetaminophen ([place] 7.5-325 Tablet) 1 Each Tablet, 1 Ea Oral 2018-09-17 00:00:00 No 1 As Needed [facility] Hydrocodone Bit/Acetaminophen ([place] 7.5-325 Tablet) 1 Each Tablet, 1 Ea Oral Hydrocodone Bit/Acetaminophen ([place] 7.5-325 Tablet) 1 Each Tablet, 1 Ea Oral 2018-09-17 00:00:00 No 1 Every 6 Hours as needed for Mild Pain (1-3) Or Fever>100.8 [facility] Methocarbamol 750 Mg Tablet, 500 Mg Oral Methocarbamol 750 Mg Tablet, 500 Mg Oral 2018-09-17 00:00:00 No 500 Daily as needed fo r Q6h [facility] Metoclopramide Hcl 10 Mg Tablet, 10 Mg Oral Metoclopra mide Hcl 10 Mg Tablet, 10 Mg Oral 2018-09-17 00:00:00 No 10 Four Times Daily [facility] Resperidone , Oral Resperidone , Oral 2018-08-19 00:00:00 No Daily for Sleep [facility] Hydrochlorothiazide 25 Mg Tablet, 25 Mg Oral Hydrochlo rothiazide 25 Mg Tablet, 25 Mg Oral 2016-05-13 00:00:00 No 25 Daily [facility] Levothyroxine Sodium (Synthroid) 75 Mcg Tab, 75 Mcg Or al Levothyroxine Sodium (Synthroid) 75 Mcg Tab, 75 Mcg Oral 2016-05-10 00:00:00 No 75 Daily [facility] Lisinopril (Zestril*) 10 Mg Tablet, 10 Mg Oral Lisinop ril (Zestril*) 10 Mg Tablet, 10 Mg Oral 2016-05-10 00:00:00 No 10 Daily [facility] Tolterodine Tartrate (Detrol La) 4 Mg Cap.er.24h, 4 Mg Oral Tolterodine Tartrate (Detrol La) 4 Mg Cap.er.24h, 4 Mg Oral 2014-09-22 00:00:00 No 4 Daily [facility] Immunizations Ordered Immunization Name Filled Immunization Name Date Status Comments Source influenza, high dose seasonal influenza, high dose seasonal 2018 15:34:00 Completed [facility] pneumococcal polysaccharide PPV23 pneumococcal polysaccharid e PPV23 2018-06-30 16:18:00 [facility] z[facility] subunit zoster subunit 2018-06-30 16:17:00 Completed [facility] zoster subunit zoster subunit 2018-04-06 14:02:00 Completed [facility] influenza, high dose seasonal influenza, high dose seasonal 2017 12:47:43 Completed [facility] influenza, high dose seasonal influenza, high dose seasonal 2016 14:25:27 Completed [facility] pneumococcal conjugate PCV 13 pneumococcal conjugate PCV 13 2016 10:57:00 Completed [facility] influenza, high dose seasonal influenza, high dose seasonal 2015 12:59:55 Completed [facility] influenza, injectable, quadrivalent influenza, injectable, q uadrivalent 2014-12-20 00:00:00 Completed [facility] zoster zoster 2014-04-21 00:00:00 Completed [facility] pneumococcal, unspecified formulation pneumococcal, unspecif ied formulation 2014-04-21 00:00:00 [facility]pleted [facility] Tdap Tdap 2014-04-21 00:00:[address] [facility] MMR MMR 1949-04-21 00:00:[address] [facility] Vital Signs Vital Name Observation Time Observation Value Comments Source BP Diastolic 2019-01-28 00:00:00 70 mm[Hg] [facility] Height 2019-01-28 00:00:00 64.5 [in_i] [facility] BMI (Body Mass Index) 2019-01-28 00:00:00 25.3 kg/m2 [facility] BP Systolic 2019-01-28 00:00:00 148 mm[Hg] [facility] Body Weight 2019-01-28 00:00:00 150 [lb_av] [facility] BP Diastolic 2018-12-31 00:00:00 80 mm[Hg] [facility] Height 2018-12-31 00:00:00 64.5 [in_i] [facility] BMI (Body Mass Index) 2018-12-31 00:00:00 25.6 kg/m2 [facility] BP Systolic 2018-12-31 00:00:00 170 mm[Hg] [facility] Body Weight 2018-12-31 00:00:00 151.4 [lb_av] [facility] BP Diastolic 2018-10-27 00:00:00 82 mm[Hg] [facility] Height 2018-10-27 00:00:00 64.5 [in_i] [facility] BMI (Body Mass Index) 2018-10-27 00:00:00 25.2 kg/m2 [facility] BP Systolic 2018-10-27 00:00:00 160 mm[Hg] [facility] Body Weight 2018-10-27 00:00:00 149 [lb_av] [facility] BP Diastolic 2018-08-24 00:00:00 76 mm[Hg] [facility] Height 2018-08-24 00:00:00 64.5 [in_i] [facility] BMI (Body Mass Index) 2018-08-24 00:00:00 25.6 kg/m2 [facility] BP Systolic 2018-08-24 00:00:00 162 mm[Hg] [facility] Body Weight 2018-08-24 00:00:00 151.2 [lb_av] [facility] BP Diastolic 2018-08-17 00:00:00 90 mm[Hg] [facility] Height 2018-08-17 00:00:00 64.5 [in_i] [facility] BMI (Body Mass Index) 2018-08-17 00:00:00 25.3 kg/m2 [facility] BP Systolic 2018-08-17 00:00:00 164 mm[Hg] [facility] Body Weight 2018-08-17 00:00:00 149.6 [lb_av] [facility] BP Diastolic 2018-08-10 00:00:00 86 mm[Hg] [facility] Height 2018-08-10 00:00:00 64.5 [in_i] [facility] BMI (Body Mass Index) 2018-08-10 00:00:00 26.2 kg/m2 [facility] BP Systolic 2018-08-10 00:00:00 138 mm[Hg] [facility] Body Weight 2018-08-10 00:00:00 155 [lb_av] [facility] BP Diastolic 2018-06-30 00:00:00 74 mm[Hg] [facility] Height 2018-06-30 00:00:00 64.5 [in_i] [facility] BMI (Body Mass Index) 2018-06-30 00:00:00 26.2 kg/m2 [facility] BP Systolic 2018-06-30 00:00:00 136 mm[Hg] [facility] Body Weight 2018-06-30 00:00:00 155 [lb_av] [facility] Procedures Procedure Date / Time Performed Performing Clinician Sourc e electrocardiogram 2018-12-31 00:00:00 [facility] Colonoscopy with biopsy 2018-09-21 00:00:[address] [facility] X-ray of chest, two views 2018-09-21 00:00:00 ALYSSA PASCUAL CH, [facility] Computed tomography of abdomen and pelvis with contrast 2018 00:00:00 MAGGIE MCLEOD [facility] LOW BACK DISK SURGERY 2018-08-20 00:00:00 CATRACHITO VERA [facility] X-ray of chest, two views 2018-08-19 00:00:[address] [facility] MRI, lumbar spine, w/o contrast 2018-08-10 00:00:00 [facility] MAMMO, diagnostic, digital, bilateral 2018-06-10 00:00:00 [facility] US, breast 2018-06-10 00:00:00 [facility] Colonoscopy 2014-04-21 00:00:00 [facility] Hysterectomy (Total) 1984-04-21 00:00:00 [facility] Functional Endoscopic Sinus Surgery - Po stoperative Suction Clearance under Local Anesthetic [facility] Nasal Sept[facility] Encounters Start Date/Time End Date/Time Encounter Type Admission Type Attendi [facility] Care Facility Care Department Encounter ID Source 2019-01-28 00:00:00 2019-01-28 00:00:00 Ajit vaughn MD: [address] [place] [address], Ph. [facility] - [facility] [id number] [facility] 2018-12-31 00:00:00 2018-12-31 00:00:00 Ajit vaughn MD: [address] [place] [address], Ph. [facility] [id number] [facility] 2018-10-27 00:00:00 2018-10-27 00:00:00 Ajit vaughn MD: [address] [place] [address], Ph. [facility] [id number] [facility] 2018-10-02 12:55:00 2018-10-18 23:59:00 Discharged Recurring [facility] [id number] [facility] 2018-09-21 00:31:00 2018-09-22 13:40:00 Discharged Inpatient (obs) 1 FAIZA FISCHER [facility] [id number] [facility] 2018-09-07 11:07:00 2018-09-18 23:59:00 Discharged Recurring [facility] [id number] [facility] 2018-09-16 12:41:00 2018-09-16 12:41:00 Registered Clinic 3 MAGGIE MCLEOD [facility] [id number] [facility] 2018-08-24 00:00:00 2018-08-24 00:00:00 Ivette Batista MD: [address] [place] [address], Ph. [facility] [id number] [facility] 2018-08-20 13:02:00 2018-08-21 10:24:00 Discharged Inpatient (obs) 3 CATRACHITO VERA [facility] [id number] [facility] 2018-08-17 00:00:00 2018-08-17 00:00:00 Ivette Batista MD: [address] [place] [address], Ph. [facility] [id number] [facility] 2018-08-10 00:00:00 2018-08-10 00:00:00 Ivette Batista MD: [address] [place] [address], Ph. [facility] [id number] [facility] 2018-06-30 00:00:00 2018-06-30 00:00:00 Ajit vaughn MD: [address] [place] [address], Ph. [facility] [id number] [facility] Results Test Description Test Time Test Comments Results Result Comments Source [facility] 2020-02-21 14:05:00 [facility] CENTERName: MARIANNA GREGORIO : 1945 Sex: F [place] [address] Patient Name: MARIANNA GREGORIO MR #: [id number] : 1945 Age/Sex: 74/F Req #: [id number] Adm Physician: NATASHA REYNOLDS MD Ordered by: CRISTIAN BALDWIN MD Report #: [id number] Location: [facility] Room/Bed: [place] [address] Procedure: [id number] US/US ABDOMEN COMPLETE Exam Date: 02/21/20 Exam Time: 1221 REPORT STATUS: Signed EXAM: Complete Abdominal Ultrasound INDICATION: Liver disease R/O LIVER DISEASE COMPARISON: CT scan September 16, 2018. TECHNIQUE: Transverse and longitudinal images of the upper abdomen were obtained. FINDINGS: Liver: Size: 12.2 cm in the right midclavicular line, normal Appearance: Normal echogenicity, smooth contour Mass: No focal masses Spleen: Size: 8.9 cm in length, normal Echogenicity: Normal Mass: No focal masses Gallbladder: Prior cholecystectomy Sonographic James's Sign: Negative Bile Ducts: Intrahepatic Ducts: No dilatation Extrahepatic Ducts: Common bile duct measures 0.7 cm, prominent likely due to reservoir effect from cholecystectomy Pancreas: Visualized portions of the pancreatic head, neck and proximal body are normal. Kidneys: Length: Right 9.8 cm Left 9.9 cm Echogenicity: Normal Collecting System: No hydronephrosis Stone: None Cyst/Mass: None Vessels: Aorta: Visualized portions are normal Inferior Vena Cava: Visualized portions are normal Main Portal Vein: 1.1 cm, normal size with hepatopetal flow. Free Fluid: No ascites or pleural effusion IMPRESSION: Cholecystectomy. Prominent common bile duct likely due to reservoir effect from cholecystectomy. No ultrasonographic abnormality seen in the liver. Signed by: Dr. Jes Haskins M.D. on 02/21/2020 2:07 PM Dictated By: JES HASKINS MD, MD 06 Transcribed By: JOSE on 02/21/201406 COPY TO: CRISTIAN BALDWIN MD CHEST SINGLE (PORTABLE) 2020-02-20 10:07:00 [facility] 1945 Sex: F [facility] [address] [place] [address] Patient Name: MARIANNA GREGORIO MR #: [id number] : 1945 Age/Sex: 74/F Req #: [id number] Adm Physician: NATASHA REYNOLDS MD Ordered by: DEVIN MIRELES MD Report #: [id number] Location: [facility] Room/Bed: [place] [address] Procedure: [id number] DX/CHEST SINGLE (PORTABLE) Exam Date: 02/20/20 Exam Time: 0530 REPORT STATUS: Signed EXAMINATION: CHEST SINGLE (PORTABLE) INDICATION: Follow-up pneumonia COMPARISON: Multiple prior chest x-rays including most recent on 02/14/2020. Chest CT on 02/16/2020. FINDINGS: TUBES and LINES: None. LUNGS: No significant interval change in multifocal interstitial and patchy airspace opacities. PLEURA: No pleural effusion or pneumothorax. HEART AND MEDIASTINUM: The cardiomediastinal silhouette is unchanged. BONES AND SOFT TISSUES: No acute osseous lesion. Partially imaged cervical spine hardware. Soft tissues are unremarkable. UPPER ABDOMEN: No free air under the diaphragm. IMPRESSION: No significant interval change in diffuse interstitial and patchy airspace opacities compatible with multifocal pneumonia. Signed by: Melida Ledesma MD on 02/20/2020 10:09 AM Dictated By: MELIDA LEDESMA MD 08 Transcribed By: JOSE on 02/20/201008 COPY TO: DEVIN MIRELES MD, [facility] CT CHEST W 2020-02-16 17:44:00 [facility] 1945 Sex: F [place] [address] Patient Name: MARIANNA GREGORIO MR #: [id number] : 1945 Age/Sex: 74/F Req #: [id number] Adm Physician: NATASHA REYNOLDS MD Ordered by: CRISTIAN BALDWIN MD Report #: [id number] Location: [facility] Room/Bed: [place] [address] Procedure: [id number] CT/CT CHEST W Exam Date: 02/16/20 Exam Time: 1650 REPORT STATUS: Signed EXAM: CT Chest WITH contrast (PE Protocol) INDICATION: r/o pe [id number] COMPARISON: Chest radiographs 02/14/2020 TECHNIQUE: Chest was scanned utilizing a multidetector helical scanner from the lung apex through the level of the diaphragm after administration of IV contrast. Thin section reconstructions were obtained with special concentration on the pulmonary arteries. Coronal and sagittal reformations were obtained. Pulmonary embolism protocol was performed. IV CONTRAST: 100 mL of Isovue 370 COMPLICATIONS: None RADIATION DOSE: Total DLP: 368.51 mGy*cm Estimated effective dose: (DLP x 0.014 x size factor) mSv CTDIvol has been reviewed. It is below the limits set by the Radiation Protocol Committee (RPC). Dose modulation, iterative reconstruction, and/or weight based adjustment of the mA/kV was utilized to reduce the radiation dose to as low as reasonably achievable. FINDINGS: LINES/ TUBES: None. LUNGS AND AIRWAYS: No filling defect is identified within the pulmonary arteries to the segmental level. Peripheral predominant groundglass opacities with septal thickening throughout both lungs. Additional consolidations in the dependent bilateral lower lobes. Airways are normal. PLEURA: The pleural spaces are clear. HEART AND MEDIASTINUM: The thyroid gland is normal. Few prominent subcentimeter mediastinal and hilar lymph nodes are favored to be reactive. The heart is normal in size. There is no pericardial effusion. There are mild atherosclerotic calcifications in the aorta and coronary arteries.. Main pulmonary artery measures 2.2 cm in diameter and the ascending aorta measures 2.8 cm. UPPER ABDOMEN: Small gastroesophageal hiatal hernia. Otherwise, visualized portions of the upper abdomen are unremarkable given limitations with timing of contrast bolus. BONES: No acute osseous abnormality. Status post anterior spinal fusion at C7-T1 with grossly intact hardware. SOFT TISSUES: Unremarkable. IMPRESSION: 1. No pulmonary emboli. 2. Peripheral predominant groundglass opacities and consolidations throughout both lungs, concerning for multifocal pneumonia and findings are typical for COVID-19. 3. Few prominent subcentimeter mediastinal and hilar lymph nodes, favored to be reactive. Signed by: Dr. Krissy Harris M.D. on 02/16/2020 5:51 PM Dictated By: KRISSY HARRIS MD 50 Transcribed By: JOSE on 02/16/201750 COPY TO: CRISTIAN BALDWIN MD CHEST SINGLE (PORTABLE) 2020-02-14 13:46:00 [facility] CENTERName: MARIANNA GREGORIO : 1945 Sex: F [facility] [address] [place] [address] Patient Name: MARIANNA GREGOROI MR #: [id number] : 1945 Age/Sex: 74/F Req #: [id number] Adm Physician: Ordered by: PIETRO HOPKINS DO Report #: [id number] Location: ER Room/Bed: Procedure: [id number] DX/CHEST SINGLE (PORTABLE) Exam Date: 02/14/20 Exam Time: 1330 REPORT STATUS: Signed TECHNIQUE: Frontal view of the chest. INDICATION: Y COVID [id number] 1330 COMPARISON: 09/21/2018 DISCUSSION: Limited evaluation due to portable technique. Lines and hardware: Overlying EKG leads are noted. Heart and mediastinum: Within normal limits. Lungs and pleura: There are multiple peripheral ill- defined interstitial airspace opacities diffusely. Negative for large effusion or pneumothorax. Soft tissues and bones: No acute abnormality. IMPRESSION: Multiple peripheral ill-defined interstitial airspace opacities predominantly within the perihilar region and lung bases, findings are commonly seen in patients with Covid pneumonia. Negative for large effusion or pneumothorax. Signed by: Zulma Salas MD on 02/14/2020 1:47 PM Dictated By: ZULMA SALAS MD 46 Transcribed By: JOSE on 02/14/201346 COPY TO: PIETRO HOPKINS DO Urine Chloride 2018-09-22 23:03:00 Test Item Urine Chloride (test code = 74627-0) 84 Not Estab. [facility] HospitalU[facility] Chloride mmol/Qwe4977-18-90 23:03:00* Test Item Value Reference Range Interpretation Comments Urine Chloride mmol/Day (test code = 68301-3) Comment 110-250 No total volume submitted. Unable to calculate 24 hourresult.Performed at: [facility] [address] [id number] Director: Gomez espino MD, Phone: [phone] Methodist Clear Lake HospitalPhosphorus Qjblg4809-33-44 06:03:00* Test Item Value Reference Range Interpretation Comments Phosphorus Level (test code = LPH8890) 2.0 2.3-4.7 L [facility] HospitalMagnesium Qgfvl1765-64-32 06:03:00* Test Item Value Reference Range Interpretation Comments Magnesium Level (test code = 83439-5) 2.1 1.3-2.1 [facility] HospitalPhosphorus Umfqk1465-37-79 06:03:00* Test Item Value Reference Range Interpretation Comments Phosphorus Level (test code = SIU8318) 2.0 2.3-4.7 L [facility] Stephenvillegnesium Wxnnv0099-76-30 06:03:00* Test Item Value Reference Range Interpretation Comments Magnesium Level (test code = 85835-1) 2.1 1.3-2.1 [facility]odium Urisx8110-43-61 05:45:00* Test Item Value Reference Range Interpretation Comments Sodium Level (test code = 2951-2) 134 136-145 L [facility] HospitalPotassium Matyn7295-54-99 05:45:00* Test Item Value Reference Range Interpretation Comments Potassium Level (test code = 2823-3) 3.2 3.5-5.1 L [facility] HospitalChloride Gnxeq0430-60-15 05:45:00* Test Item Value Reference Range Interpretation Comments Chloride Level (test code = 2075-0) 106 98-107 [facility] HospitalCarbon Dioxide Tpsnv4569-78-49 05:45:00* Test Item Value Reference Range Interpretation Comments Carbon Dioxide Level (test code = 2028-9) 23 22-29 [facility] HospitalAnion Kxy5576-70-85 05:45:00* Test Item Value Reference Range Interpretation Comments Anion Gap (test code = 13814-2) 8.2 8-16 [facility] HospitalBlood Urea Hkiyhvwy6304-34-81 05:45:00* Test Item Value Reference Range Interpretation Comments Blood Urea Nitrogen (test code = 3094-0) < 5 7-26 L [facility] HospitalCreatinine2019-06-04 05:45:00* Test Item Value Reference Range Interpretation Comments Creatinine (test code = 2160-0) 0.61 0.57-1.11 [facility] HospitalBUN/Creatinine Tcqvi0619-21-74 05:45:00* Test Item Value Reference Range Interpretation Comments BUN/Creatinine Ratio (test code = 3097-3) 8 6-25 [facility] HospitalEstimat Glomerular Filtration Rate 2018-09-22 05:45:00* Test Item Value Reference Range Interpretation Comments Estimat Glomerular Filtration Rate (test code = 084909283) > 60 >60 Ranges were taken from the National Kidney Disease Education Program and the [facility] literature.Reference ranges:60 or greater: Vcpuvw10-28 ( for 3 consecutive months): Chronic kidney disease 15 or less: Kidney failureHouston Methodist Clear Lake HospitalGlucose Zwaah1093-06-09 05:45:00* Test Item Value Reference Range Interpretation Comments Glucose Level (test code = KQY4457) 87 74-118 [facility] HospitalCalcium Ieiun0373-86-54 05:45:00* Test Item Value Reference Range Interpretation Comments Calcium Level (test code = 28790-0) 8.2 8.4-10.2 L [facility] HospitalTotal Sukbbsbev0419-51-93 05:45:00* Test Item Value Reference Range Interpretation Comments Total Bilirubin (test code = 1975-2) 0.4 0.2-1.2 [facility] HospitalAspartate Amino Transf (AST/SGOT) 2018-09-22 05:45:00* Test Item Value Reference Range Interpretation Comments Aspartate Amino Transf (AST/SGOT) (test code = Aspartate Amino Transf (AST/SGOT)) 17 5-34 [facility] HospitalAlanine Aminotransferase (ALT/SGPT) 2018-09-22 05:45:00* Test Item Value Reference Range Interpretation Comments Alanine Aminotransferase (ALT/SGPT) (test code = 1742-6) 16 0-55 [facility] HospitalTotal Ouojxyh9783-33-88 05:45:00* Test Item Value Reference Range Interpretation Comments Total Protein (test code = 2885-2) 5.4 6.5-8.1 L [facility] HospitalAlbumin2019-06-04 05:45:00* Test Item Value Reference Range Interpretation Comments Albumin (test code = 1751-7) 3.0 3.5-5.0 L [facility] HospitalGlobulin2019-06-04 05:45:00* Test Item Value Reference Range Interpretation Comments Globulin (test code = 31148-0) 2.4 2.3-3.5 [facility] HospitalAlbumin/Globulin Jnpgy0861-55-06 05:45:00 * Test Item Value Reference Range Interpretation Comments Albumin/Globulin Ratio (test code = 1759-0) 1.3 0.8-2.0 [facility] HospitalAlkaline Zukcxavfqni2808-75-70 05:45:00* Test Item Value Reference Range Interpretation Comments Alkaline Phosphatase (test code = 6768-6) 58 40-150 [facility] Centerodium Lmjkh8538-60-63 05:45:00* Test Item Value Reference Range Interpretation Comments Sodium Level (test code = 2951-2) 134 136-145 L [facility] HospitalPotassium Gchpt3271-18-80 05:45:00* Test Item Value Reference Range Interpretation Comments Potassium Level (test code = 2823-3) 3.2 3.5-5.1 L [facility] HospitalChloride Muykn3102-59-93 05:45:00* Test Item Value Reference Range Interpretation Comments Chloride Level (test code = 2075-0) 106 98-107 [facility] HospitalCarbon Dioxide Ylkhj7454-85-49 05:45:00* Test Item Value Reference Range Interpretation Comments Carbon Dioxide Level (test code = 2028-9) 23 22-29 [facility] HospitalAnion Tub7744-04-71 05:45:00* Test Item Value Reference Range Interpretation Comments Anion Gap (test code = 72256-0) 8.2 8-16 [facility] HospitalBlood Urea Mesdheci4990-59-63 05:45:00* Test Item Value Reference Range Interpretation Comments Blood Urea Nitrogen (test code = 3094-0) < 5 7-26 L [facility] HospitalCreatinine2019-06-04 05:45:00* Test Item Value Reference Range Interpretation Comments Creatinine (test code = 2160-0) 0.61 0.57-1.11 [facility] HospitalBUN/Creatinine Ilfll0771-21-11 05:45:00* Test Item Value Reference Range Interpretation Comments BUN/Creatinine Ratio (test code = 3097-3) 8 6-25 [facility] HospitalEstimat Glomerular Filtration Rate 2018-09-22 05:45:00* Test Item Value Reference Range Interpretation Comments Estimat Glomerular Filtration Rate (test code = 374663216) > 60 >60 Ranges were taken from the National Kidney Disease Education Program and the [facility] Kid[facility] Foundation literature.Reference ranges:60 or greater: Fzrpro22-84 ( for 3 consecutive months): Chronic kidney disease 15 or less: Kidney failureHouston Methodist Clear Lake HospitalGlucose Odhln8688-09-69 05:45:00* Test Item Value Reference Range Interpretation Comments Glucose Level (test code = CFE5184) 87 74-118 [facility] HospitalCalcium Sdrck3568-56-36 05:45:00* Test Item Value Reference Range Interpretation Comments Calcium Level (test code = 22085-2) 8.2 8.4-10.2 L [facility] HospitalTotal Qhvnseyul0987-76-50 05:45:00* Test Item Value Reference Range Interpretation Comments Total Bilirubin (test code = 1975-2) 0.4 0.2-1.2 [facility] HospitalAspartate Amino Transf (AST/SGOT) 2018-09-22 05:45:00* Test Item Value Reference Range Interpretation Comments Aspartate Amino Transf (AST/SGOT) (test code = Aspartate Amino Transf (AST/SGOT)) 17 5-34 [facility] HospitalAlanine Aminotransferase (ALT/SGPT) 2018-09-22 05:45:00* Test Item Value Reference Range Interpretation Comments Alanine Aminotransferase (ALT/SGPT) (test code = 1742-6) 16 0-55 [facility] Qcixlpk1225-96-89 05:45:00* Test Item Value Reference Range Interpretation Comments Total Protein (test code = 2885-2) 5.4 6.5-8.1 L [facility] HospitalAlbumin2019-06-04 05:45:00* Test Item Value Reference Range Interpretation Comments Albumin (test code = 1751-7) 3.0 3.5-5.0 L [facility] HospitalGlobulin2019-06-04 05:45:00* Test Item Value Reference Range Interpretation Comments Globulin (test code = 05333-5) 2.4 2.3-3.5 [facility] HospitalAlbumin/Globulin Nkpta1685-57-99 05:45:00 * Test Item Value Reference Range Interpretation Comments Albumin/Globulin Ratio (test code = 1759-0) 1.3 0.8-2.0 [facility] HospitalAlkaline Zcfulvzpsvz5028-80-82 05:45:00* Test Item Value Reference Range Interpretation Comments Alkaline Phosphatase (test code = 6768-6) 58 40-150 [facility] HospitalProthrombin Nodl9765-57-96 05:39:00* Test Item Value Reference Range Interpretation Comments Prothrombin Time (test code = 5902-2) 14.3 11.9-14.5 [facility] HospitalProthromb Time International Ratio 2018-09-22 05:39:00* Test Item Value Reference Range Interpretation Comments Prothromb Time International Ratio (test code = 6301-6) 1.06 Oral Anticoagulant Therapy INR Values:1. Low Intensity Therapy 1.5 - 2.02 . Moderate Intensity Therapy 2.0 - 3.03. High Intensity Therapy(1) 2.5 - 3. 54. High Intensity Therapy(2) 3.0 - 4.05. Panic Value INR > 5.0 [facility] HospitalProthrombin Jcjg7702-29-27 05:39:00* Test Item Value Reference Range Interpretation Comments Prothrombin Time (test code = 5902-2) 14.3 11.9-14.5 [facility] HospitalProthromb Time International Ratio 2018-09-22 05:39:00* Test Item Value Reference Range Interpretation Comments Prothromb Time International Ratio (test code = 6301-6) 1.06 Oral Anticoagulant Therapy INR Values:1. Low Intensity Therapy 1.5 - 2.02 . Moderate Intensity Therapy 2.0 - 3.03. High Intensity Therapy(1) 2.5 - 3. 54. High Intensity Therapy(2) 3.0 - 4.05. Panic Value INR > 5.0 [facility] HospitalWhite Blood Zhgya5611-04-40 05:21:00* Test Item Value Reference Range Interpretation Comments White Blood Count (test code = 6690-2) 6.82 4.8-10.8 [facility] HospitalRed Blood Vlxef9262-58-42 05:21:00* Test Item Value Reference Range Interpretation Comments Red Blood Count (test code = 789-8) 3.73 3.6-5.1 [facility] HospitalHemoglobin2019-06-04 05:21:00* Test Item Value Reference Range Interpretation Comments Hemoglobin (test code = 01473-7) 11.7 12.0-16.0 L [facility] HospitalHematocrit2019-06-04 05:21:00* Test Item Value Reference Range Interpretation Comments Hematocrit (test code = 4544-3) 33.9 34.2-44.1 L [facility] HospitalMean Corpuscular Nhwjgf2788-36-12 05:21:00* Test Item Value Reference Range Interpretation Comments Mean Corpuscular Volume (test code = 787-2) 90.9 81-99 [facility] HospitalMean Corpuscular Dllsibuzde1586-70-54 05:21:00* Test Item Value Reference Range Interpretation Comments Mean Corpuscular Hemoglobin (test code = 785-6) 31.4 28-32 [facility] HospitalMean Corpuscular Hemoglobin Concent 2018-09-22 05:21:00* Test Item Value Reference Range Interpretation Comments Mean Corpuscular Hemoglobin Concent (test code = 786-4) 34.5 31-35 [facility] HospitalRed Cell Distribution Dndes2265-14-97 05:21:00* Test Item Value Reference Range Interpretation Comments Red Cell Distribution Width (test code = 89096-6) 13.7 11.7 -14.4 [facility] HospitalPlatelet Dqstn7890-75-23 05:21:00* Test Item Value Reference Range Interpretation Comments Platelet Count (test code = 777-3) 284 140-360 [facility] HospitalNeutrophils (%) (Auto)2018-09-22 05:21:00 * Test Item Value Reference Range Interpretation Comments Neutrophils (%) (Auto) (test code = 25337-4) 63.3 38.7-80.0 [facility] HospitalLymphocytes (%) (Auto)2018-09-22 05:21:00 * Test Item Value Reference Range Interpretation Comments Lymphocytes (%) (Auto) (test code = 736-9) 22.7 18.0-39.1 [facility] HospitalMonocytes (%) (Auto)2018-09-22 05:21:00* Test Item Value Reference Range Interpretation Comments Monocytes (%) (Auto) (test code = 5905-5) 10.3 4.4-11.3 [facility] HospitalEosinophils (%) (Auto)2018-09-22 05:21:00 * Test Item Value Reference Range Interpretation Comments Eosinophils (%) (Auto) (test code = 713-8) 1.5 0.0-6.0 [facility] HospitalBasophils (%) (Auto)2018-09-22 05:21:00* Test Item Value Reference Range Interpretation Comments Basophils (%) (Auto) (test code = 706-2) 1.0 0.0-1.0 [facility] HospitalIM GRANULOCYTES %2018-09-22 05:21:00* Test Item Value Reference Range Interpretation Comments IM GRANULOCYTES % (test code = IM GRANULOCYTES %) 1.2 0.0- 1.0 H [facility] HospitalNeutrophils # (Auto)2018-09-22 05:21:00* Test Item Value Reference Range Interpretation Comments Neutrophils # (Auto) (test code = 751-8) 4.3 2.1-6.9 [facility] HospitalLymphocytes # (Auto)2018-09-22 05:21:00* Test Item Value Reference Range Interpretation Comments Lymphocytes # (Auto) (test code = 78439-3) 1.6 1.0-3.2 [facility] HospitalMonocytes # (Auto)2018-09-22 05:21:00* Test Item Value Reference Range Interpretation Comments Monocytes # (Auto) (test code = 742-7) 0.7 0.2-0.8 [facility] HospitalEosinophils # (Auto)2018-09-22 05:21:00* Test Item Value Reference Range Interpretation Comments Eosinophils # (Auto) (test code = 711-2) 0.1 0.0-0.4 [facility] HospitalBasophils # (Auto)2018-09-22 05:21:00* Test Item Value Reference Range Interpretation Comments Basophils # (Auto) (test code = 704-7) 0.1 0.0-0.1 [facility] HospitalAbsolute Immature Granulocyte (auto 2018-09-22 05:21:00* Test Item Value Reference Range Interpretation Comments Absolute Immature Granulocyte (auto (dayron t code = Absolute Immature Granulocyte (auto) 0.08 0-0.1 [facility] HospitalWhite Blood Slphh6857-60-09 05:21:00* Test Item Value Reference Range Interpretation Comments White Blood Count (test code = 6690-2) 6.82 4.8-10.8 [facility] HospitalRed Blood Vqswh5753-68-96 05:21:00* Test Item Value Reference Range Interpretation Comments Red Blood Count (test code = 789-8) 3.73 3.6-5.1 [facility] HospitalHemoglobin2019-06-04 05:21:00* Test Item Value Reference Range Interpretation Comments Hemoglobin (test code = 44865-8) 11.7 12.0-16.0 L [facility] HospitalHematocrit2019-06-04 05:21:00* Test Item Value Reference Range Interpretation Comments Hematocrit (test code = 4544-3) 33.9 34.2-44.1 L [facility] HospitalMean Corpuscular Pdhszh3332-18-17 05:21:00* Test Item Value Reference Range Interpretation Comments Mean Corpuscular Volume (test code = 787-2) 90.9 81-99 [facility] HospitalMean Corpuscular Yyywvjnazy3690-62-99 05:21:00* Test Item Value Reference Range Interpretation Comments Mean Corpuscular Hemoglobin (test code = 785-6) 31.4 28-32 [facility] HospitalMean Corpuscular Hemoglobin Concent 2018-09-22 05:21:00* Test Item Value Reference Range Interpretation Comments Mean Corpuscular Hemoglobin Concent (test code = 786-4) 34.5 31-35 [facility] HospitalRed Cell Distribution Moqwb4195-42-83 05:21:00* Test Item Value Reference Range Interpretation Comments Red Cell Distribution Width (test code = 23263-4) 13.7 11.7 -14.4 [facility] HospitalPlatelet Dfrue7215-31-76 05:21:00* Test Item Value Reference Range Interpretation Comments Platelet Count (test code = 777-3) 284 140-360 [facility] HospitalNeutrophils (%) (Auto)2018-09-22 05:21:00 * Test Item Value Reference Range Interpretation Comments Neutrophils (%) (Auto) (test code = 04360-3) 63.3 38.7-80.0 [facility] HospitalLymphocytes (%) (Auto)2018-09-22 05:21:00 * Test Item Value Reference Range Interpretation Comments Lymphocytes (%) (Auto) (test code = 736-9) 22.7 18.0-39.1 [facility] HospitalMonocytes (%) (Auto)2018-09-22 05:21:00* Test Item Value Reference Range Interpretation Comments Monocytes (%) (Auto) (test code = 5905-5) 10.3 4.4-11.3 [facility] HospitalEosinophils (%) (Auto)2018-09-22 05:21:00 * Test Item Value Reference Range Interpretation Comments Eosinophils (%) (Auto) (test code = 713-8) 1.5 0.0-6.0 [facility] HospitalBasophils (%) (Auto)2018-09-22 05:21:00* Test Item Value Reference Range Interpretation Comments Basophils (%) (Auto) (test code = 706-2) 1.0 0.0-1.0 [facility] HospitalIM GRANULOCYTES %2018-09-22 05:21:00* Test Item Value Reference Range Interpretation Comments IM GRANULOCYTES % (test code = IM GRANULOCYTES %) 1.2 0.0- 1.0 H [facility] HospitalNeutrophils # (Auto)2018-09-22 05:21:00* Test Item Value Reference Range Interpretation Comments Neutrophils # (Auto) (test code = 751-8) 4.3 2.1-6.9 [facility] HospitalLymphocytes # (Auto)2018-09-22 05:21:00* Test Item Value Reference Range Interpretation Comments Lymphocytes # (Auto) (test code = 40440-0) 1.6 1.0-3.2 [facility] HospitalMonocytes # (Auto)2018-09-22 05:21:00* Test Item Value Reference Range Interpretation Comments Monocytes # (Auto) (test code = 742-7) 0.7 0.2-0.8 [facility] HospitalEosinophils # (Auto)2018-09-22 05:21:00* Test Item Value Reference Range Interpretation Comments Eosinophils # (Auto) (test code = 711-2) 0.1 0.0-0.4 [facility] HospitalBasophils # (Auto)2018-09-22 05:21:00* Test Item Value Reference Range Interpretation Comments Basophils # (Auto) (test code = 704-7) 0.1 0.0-0.1 [facility] HospitalAbsolute Immature Granulocyte (auto 2018-09-22 05:21:00* Test Item Value Reference Range Interpretation Comments Absolute Immature Granulocyte (auto (dayron t code = Absolute Immature Granulocyte (auto) 0.08 0-0.1 [facility] HospitalCHEST 2 NANVB5301-46-79 20:13:00 [place] [address] Patient Name: MARIANNA GREGORIO MR #: [id number] : 1945 Age/Sex: 72/F Req #: [id number] Adm Physician: FAIZA FISCHER MD Ordered by: ANKUR CEBALLOS, ALYSSA CEBALLOS Report #: [id number] Location: [facility] Room/Bed: [place] [address] Procedure: [id number] D X/CHEST 2 VIEWS Exam Date: Exam Time: REPORT STATUS: Signed EXAMINATION: CHEST 2 VIEWS INDICATION: htn COMPARISON: Abdominal radiographs dated 09/20/2018 FINDINGS: AP view TUBES and LINES: None. LUNGS/PLEURA: The lungs are clear. No pleural effusion or pneumothorax. H EART AND MEDIASTINUM: The cardiomediastinal silhouette is unremarkable. BONES AND SOFT TISSUES: No acute osseous lesion. Soft tissues are unremark able. Lower cervical ACDF. UPPER ABDOMEN: No free air under the diaphragm. Air-filled, prominent loops of bowel project over the upper abdomen IMPRE SSION: No acute thoracic abnormality. Air-filled prominent loops of bowel in the upper abdomen, likely colon. Signed by: Alex Marks MD on 09/22/19 8:20 PM Dictated By: KATHY MARKS MD 19 Transcribed By: JOSE on 09/21/182019 COPY TO: ALYSSA PASCUAL Urine Random Qeiutd0591-74-60 14:19:00 * Test Item Value Reference Range Interpretation Comments Urine Random Sodium (test code = 2955-3) 96 [facility] HospitalUrine Random Usogpq5171-18-55 14:19:00* Test Item Value Reference Range Interpretation Comments Urine Random Sodium (test code = 2955-3) 96 [facility] HospitalUric Ftjn8364-15-92 14:15:00* Test Item Value Reference Range Interpretation Comments Uric Acid (test code = 3084-1) 3.4 2.6-8.0 [facility] HospitalUric Gwrk1241-69-99 14:15:00* Test Item Value Reference Range Interpretation Comments Uric Acid (test code = 3084-1) 3.4 2.6-8.0 [facility] HospitalUrine SVG6580-30-89 14:08:00* Test Item Value Reference Range Interpretation Comments Urine WBC (test code = 5821-4) NONE 0-5 [facility] HospitalUrine PTL1850-17-00 14:08:00* Test Item Value Reference Range Interpretation Comments Urine RBC (test code = 68438-4) NONE 0-5 [facility] HospitalUrine Gjrliocm5387-20-31 14:08:00* Test Item Value Reference Range Interpretation Comments Urine Bacteria (test code = 05653-8) NONE NONE [facility] HospitalUrine Epithelial Hfofj9094-82-72 14:08:00 * Test Item Value Reference Range Interpretation Comments Urine Epithelial Cells (test code = 57143-8) FEW NONE [facility] HospitalUrine Amorphous Anwiqazs4225-40-49 14:08:00* Test Item Value Reference Range Interpretation Comments Urine Amorphous Sediment (test code = 8246-1) MANY FEW H [facility] HospitalUrine TSZ2825-06-81 14:08:00* Test Item Value Reference Range Interpretation Comments Urine WBC (test code = 5821-4) NONE 0-5 [facility] HospitalUrine ZJB5069-39-81 14:08:00* Test Item Value Reference Range Interpretation Comments Urine RBC (test code = 98531-7) NONE 0-5 [facility] HospitalUrine Livkmlcd5508-96-30 14:08:00* Test Item Value Reference Range Interpretation Comments Urine Bacteria (test code = 22587-1) NONE NONE [facility] HospitalUrine Epithelial Gvrel1727-98-72 14:08:00 * Test Item Value Reference Range Interpretation Comments Urine Epithelial Cells (test code = 24335-0) FEW NONE [facility] HospitalUrine Amorphous Fdzdckij6374-00-12 14:08:00* Test Item Value Reference Range Interpretation Comments Urine Amorphous Sediment (test code = 8246-1) MANY FEW H [facility] HospitalUrine Xafev4323-19-83 13:55:00* Test Item Value Reference Range Interpretation Comments Urine Color (test code = 5778-6) YELLOW YELLOW [facility] HospitalUrine Ohjzhfd5205-54-44 13:55:00* Test Item Value Reference Range Interpretation Comments Urine Clarity (test code = 35040-5) SL CLOUDY CLEAR [facility] HospitalUrine Specific Nqcycng6996-92-41 13:55:00 * Test Item Value Reference Range Interpretation Comments Urine Specific [place] (test code = 5811-5) 1.010 1.010-1.02 5 [facility] sT4803-89-14 13:55:00* Test Item Value Reference Range Interpretation Comments Urine pH (test code = 30418-2) 8 5-7 [facility] Leukocyte Yqhumtem5762-82-46 13:55:00* Test Item Value Reference Range Interpretation Comments Urine Leukocyte Esterase (test code = 40629-7) NEGATIVE NEGATIV E [facility] Roghenu5291-20-06 13:55:00* Test Item Value Reference Range Interpretation Comments Urine Nitrite (test code = 22225-0) NEGATIVE NEGATIVE [facility] Lddoqlo6518-97-06 13:55:00* Test Item Value Reference Range Interpretation Comments Urine Protein (test code = 51731-9) NEGATIVE NEGATIVE [facility] Glucose (UA)2018-09-21 13:55:00* Test Item Value Reference Range Interpretation Comments Urine Glucose (UA) (test code = 25654-6) NEGATIVE NEGATIVE [facility] Bshunwz5427-38-01 13:55:00* Test Item Value Reference Range Interpretation Comments Urine Ketones (test code = 77169-2) TRACE NEGATIVE H [facility] Vsqqtkbrktnr5318-90-35 13:55:00* Test Item Value Reference Range Interpretation Comments Urine Urobilinogen (test code = 18621-2) 0.2 0.2-1 [facility] Pzvuqlmcx2498-30-23 13:55:00* Test Item Value Reference Range Interpretation Comments Urine Bilirubin (test code = 1977-8) NEGATIVE NEGATIVE [facility] Gcwbi6476-68-38 13:55:00* Test Item Value Reference Range Interpretation Comments Urine Blood (test code = 21986-5) NEGATIVE NEGATIVE [facility] Ajbqe3941-99-98 13:55:00* Test Item Value Reference Range Interpretation Comments Urine Color (test code = 5778-6) YELLOW YELLOW [facility] Cgnampw7055-20-39 13:55:00* Test Item Value Reference Range Interpretation Comments Urine Clarity (test code = 02715-2) SL CLOUDY CLEAR [facility] Specific Dqdmmtr7207-71-13 13:55:00 * Test Item Value Reference Range Interpretation Comments Urine Specific [place] (test code = 5811-5) 1.010 1.010-1.02 5 [facility] vM4050-07-60 13:55:00* Test Item Value Reference Range Interpretation Comments Urine pH (test code = 50516-8) 8 5-7 [facility] Leukocyte Kmetdjtv0697-58-91 13:55:00* Test Item Value Reference Range Interpretation Comments Urine Leukocyte Esterase (test code = 66909-0) NEGATIVE NEGATIV E [facility] HospitalU[facility] Iezyfjl7653-49-12 13:55:00* Test Item Value Reference Range Interpretation Comments Urine Nitrite (test code = 48579-0) NEGATIVE NEGATIVE [facility] HospitalU[facility] Qqwsakv3166-89-49 13:55:00* Test Item Value Reference Range Interpretation Comments Urine Protein (test code = 75672-1) NEGATIVE NEGATIVE [facility] Glucose (UA)2018-09-21 13:55:00* Test Item Value Reference Range Interpretation Comments Urine Glucose (UA) (test code = 37012-1) NEGATIVE NEGATIVE [facility] Sphvmlb2783-26-47 13:55:00* Test Item Value Reference Range Interpretation Comments Urine Ketones (test code = 75023-8) TRACE NEGATIVE H [facility] Lkzxtedddbod7786-56-58 13:55:00* Test Item Value Reference Range Interpretation Comments Urine Urobilinogen (test code = 33416-1) 0.2 0.2-1 [facility] Vmkwzzgmm5276-70-77 13:55:00* Test Item Value Reference Range Interpretation Comments Urine Bilirubin (test code = 1977-8) NEGATIVE NEGATIVE [facility] HospitalU[facility] Jxpfn1066-40-72 13:55:00* Test Item Value Reference Range Interpretation Comments Urine Blood (test code = 28579-8) NEGATIVE NEGATIVE [facility] HospitalFree Thyroxine Lvfyf4289-40-91 10:27:00* Test Item Value Reference Range Interpretation Comments Free Thyroxine Index (test code = 11232-7) 2.3995 1.4-3.8 [facility] HospitalThyroxine (T4)2018-09-21 10:27:00* Test Item Value Reference Range Interpretation Comments Thyroxine (T4) (test code = 3026-2) 8.02 4.5-10.9 Our current method for Total T4 is not recommended for use as the only marker fo r evaluating patients for thyroid disorders.[facility] HospitalTriiodothyronine (T3) Rgkvqq6957-93-44 10:27:00* Test Item Value Reference Range Interpretation Comments Triiodothyronine (T3) Uptake (test code = 3050-2) 29.92 22.5 -37.0 [facility] HospitalThyroid Stimulating Hormone (TSH) 2018-09-21 10:27:00* Test Item Value Reference Range Interpretation Comments Thyroid Stimulating Hormone (TSH) (test code = 46652-5) 1.775 0.350-4.940 [facility] Hospital[facility] Thyroxine Sotbd1223-23-55 10:27:00* Test Item Value Reference Range Interpretation Comments Free Thyroxine Index (test code = 57364-2) 2.3995 1.4-3.8 [facility] HospitalThyroxine (T4)2018-09-21 10:27:00* Test Item Value Reference Range Interpretation Comments Thyroxine (T4) (test code = 3026-2) 8.02 4.5-10.9 Our current method for Total T4 is not recommended for use as the only marker fo r evaluating patients for thyroid disorders.[facility] HospitalTriiodothyronine (T3) Ftqbgn9944-13-88 10:27:00* Test Item Value Reference Range Interpretation Comments Triiodothyronine (T3) Uptake (test code = 3050-2) 29.92 22.5 -37.0 [facility] HospitalThyroid Stimulating Hormone (TSH) 2018-09-21 10:27:00* Test Item Value Reference Range Interpretation Comments Thyroid Stimulating Hormone (TSH) (test code = 76717-3) 1.775 0.350-4.940 [facility] HospitalABDOMEN-1VIEW (KUB)2018-09-20 23:58:00 [facility] [address], [place] [address] Patient Name: MARIANNA GREGORIO MR #: [id number] : 1945 Age/Sex: 72/F Req #: [id number] Adm Physician: Ordered by: PIETRO GIORDANO MD Report #: [id number] Location: ER Room/Bed: Procedure: [id number] DX/ ABDOMEN-1VIEW (KUB) Exam Date: 09/20/18 Exam Time: 2 338 REPORT STATUS: Signed EXAM: Abdomen 2 Views INDICATION: ABD PAIN [id number] Y ROGER RISON: CT abdomen pelvis 09/16/2018 FINDINGS: Lines/tubes: None. Mild amount of stool in the colon. No dilated loops of small bowel. Moderately distended stomach. Right upper quadrant cholecystectomy clips. No renal calculi. No abnormal soft tissue masses. Moderate degenerative changes in the lumbar spine and pelvis. Status post fixation of the lower lumbar spin e. IMPRESSION: 1. Moderate distention of the stomach. 2. Nonobstructi ve bowel gas pattern. Signed by: Dr. Carlota Dia M.D. on 019 11:59 PM Dictated By: CARLOTA DIA MD Electronically Sign ed By: CARLOTA DIA MD on 09/20/182358 Transcribed By: JOSE on 0 09/20/182358 COPY TO: PIETRO GIORDANO MD CT ABDOMEN/PELVIS W 2018-09-16 14:12:00 [place] [address] Patient Name: MARIANNA GREGORIO MR #: [id number] : 1945 Age/Sex: 72/F Req #: [id number] Adm Physician: Ordered by: MAGGIE MCLEOD MD Report #: [id number] Location: CT Room/Bed: Procedure: [id number] CT/C T ABDOMEN/PELVIS W Exam Date: 09/16/18 Exam Time: 30 REPORT STATUS: Signed EXAMINA TION: CT of the abdomen and pelvis with contrast. TECHNIQUE: Spiral CT i mages of the abdomen and pelvis were performed from the lung bases to the less er trochanters after the intravenous administration of 100 cc Isovue-370. Zander nal and sagittal reformatted images were obtained. COMPARISON: None. CLINICAL HISTORY:Blood in stool, abdominal pain DISCUSSION: ABDOM EN/PELVIS: LOWER THORAX:Bandlike atelectasis in the right lower lobe. Other tristan unremarkable. HEPATOBILIARY: No focal hepatic lesions. No intra-or extrahepatic biliary ductal dilation. Prominence of the common bile duct is li brent related to reservoir effect status post cholecystectomy. Gallbladder has been removed with metallic clips in the gallbladder fossa. SPLEEN: No sp lenomegaly. PANCREAS: No focal masses or ductal dilatation. ADRENALS: No adrenal nodules. KIDNEYS/URETERS: Subcentimeter exophytic hypoattenuati ng lesions protecting from the upper pole of the left kidney is too small to f urther characterize but likely to represent a small cyst. No hydronephrosis, c alculi, or gross mass lesions. PELVIC ORGANS/BLADDER: The urinary bladder is unremarkable. Uterus is not identified and has presumably been removed. No adnexal mass. PERITONEUM/RETROPERITONEUM: No free air or fluid. LYMPH NODES: No pelvic sidewall, retroperitoneal, or mesenteric lymphadenopathy. VESSELS: Atherosclerotic calcification of the abdominal aorta and major bran h vessels. 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 GI TRACT: The majority of the colon is decompres sed and poorly evaluated. Mild mesocolic inflammatory stranding along the desc ending and sigmoid colon. The appendix is normal. No small bowel dilatation to suggest obstruction. BONES AND SOFT TISSUE: No osseous destructive lesions . Post L4 laminectomy with L4-L5 transpedicular fusion and intervertebral disc spacer placement. Intact surgical hardware. No focal soft tissue abnormaliti es. IMPRESSION: Mild mesocolic fat stranding along the descending and sigmoid colon suggests infectious or inflammatory colitis. No florentin perforati on or drainable fluid collection. 8 mm saccular splenic artery aneurysm s hould be assessed for stability by CTA of the abdomen in one year. Mild p rominence of the common bile duct is likely a consequence of cholecystectomy. Postsurgical changes of the lumbar spine. Signed by: Dr. Tabatha Rodriguez M.D. on 09/16/2018 2:22 PM Dictated By: TABATHA RODRIGUEZ MD 21 Transcribed By: JOSE on 1421 COPY TO: MAGGIE MCLEOD MD Blood Urea Jyqbdxwe2196-68-53 13:32:00* Test Item Value Reference Range Interpretation Comments Blood Urea Nitrogen (test code = 3094-0) < 5 7-26 L [facility] HospitalCreatinine2019-05-29 13:32:00* Test Item Value Reference Range Interpretation Comments Creatinine (test code = 2160-0) 0.66 0.57-1.11 [facility] HospitalBUN/Creatinine Sbtyu6481-03-47 13:32:00* Test Item Value Reference Range Interpretation Comments BUN/Creatinine Ratio (test code = 3097-3) 8 6-25 [facility] HospitalEstimat Glomerular Filtration Rate 2018-09-16 13:32:00* Test Item Value Reference Range Interpretation Comments Estimat Glomerular Filtration Rate (test code = 189003536) > 60 >60 Ranges were taken from the National Kidney Disease Education Program and the [place] [employer] literature.Reference ranges:60 or greater: Kfujov06-35 ( for 3 consecutive months): Chronic kidney disease 15 or less: Kidney failureCHI Methodist Children's HospitalPINE 1 VW POBUWG7389-24-70 12:31:00 [facility] [place] [address] Patient Name: MARIANNA GREGORIO MR #: [id number] : 1945 Age/Sex: 72/F Req #: [id number] Adm Physician: Ordered by: CATRACHITO VERA MD Report #: [id number] Location: OR Room/Bed: Procedure: [id number] DX/ SPINE 1 VW LUMBAR Exam Date: 08/20/18 Exam Time: 115 0 REPORT STATUS: Signed EXAM: In traoperative crosstable lateral lumbar spine radiograph-1 view INDICATION: Evaluation of surgical level. COMPARISON: None FINDINGS: Limited por table radiograph demonstrates markers overlying the upper aspect of the L3 tin tebral body. Status post posterior decompression and fusion from L4 through L5. Limited visualization of the hardware, which appears grossly intact. There is grade 1 anterolisthesis of L4 on L5. There is minimal retrolisthesis of L2 on L3. No evidence of acute displaced fracture. IMPRESSION: Intra operative lumbar spine radiograph as above. Signed by: Dr. Tod Rocha MD o n 08/20/2018 12:33 PM Dictated By: TOD ROCHA MD 1233 Transcribed By: JOSE on 08/20/18 1233 COPY TO: CATRACHITO VERA MD Sodium Yclsn4505-65-47 08:38:00* Test Item Value Reference Range Interpretation Comments Sodium Level (test code = 2951-2) 130 136-145 L [facility] HospitalPotassium Bvdwt6872-09-15 08:38:00* Test Item Value Reference Range Interpretation Comments Potassium Level (test code = 2823-3) 3.1 3.5-5.1 L [facility] HospitalChloride Djbsr7102-40-43 08:38:00* Test Item Value Reference Range Interpretation Comments Chloride Level (test code = 2075-0) 90 98-107 L [facility] HospitalCarbon Dioxide Xaueh9517-72-56 08:38:00* Test Item Value Reference Range Interpretation Comments Carbon Dioxide Level (test code = 2028-9) 28 22-29 [facility] HospitalAnion Vfe2640-97-39 08:38:00* Test Item Value Reference Range Interpretation Comments Anion Gap (test code = 24355-1) 15.1 8-16 [facility] HospitalBlood Urea Ubrjijuh8809-23-89 08:38:00* Test Item Value Reference Range Interpretation Comments Blood Urea Nitrogen (test code = 3094-0) 7 7-26 [facility] HospitalCreatinine2019-05-02 08:38:00* Test Item Value Reference Range Interpretation Comments Creatinine (test code = 2160-0) 0.72 0.57-1.11 [facility] HospitalBUN/Creatinine Jclex2709-23-02 08:38:00* Test Item Value Reference Range Interpretation Comments BUN/Creatinine Ratio (test code = 3097-3) 10 6-25 [facility] HospitalEstimat Glomerular Filtration Rate 2018-08-20 08:38:00* Test Item Value Reference Range Interpretation Comments Estimat Glomerular Filtration Rate (test code = 060691118) > 60 >60 Ranges were taken from the National Kidney Disease Education Program and the [facility] Kidney Foundation literature.Reference ranges:60 or greater: Dfczfr70-41 ( for 3 consecutive months): Chronic kidney disease 15 or less: Kidney failureHouston [facility] Clear Lake HospitalGlucose Bfqgr1890-75-35 08:38:00* Test Item Value Reference Range Interpretation Comments Glucose Level (test code = IQL9091) 101 74-118 [facility] HospitalCalcium Fdmqa9776-47-42 08:38:00* Test Item Value Reference Range Interpretation Comments Calcium Level (test code = 34221-3) 10.4 8.4-10.2 [facility] Centerodium Coass1828-16-62 08:38:00* Test Item Value Reference Range Interpretation Comments Sodium Level (test code = 2951-2) 130 136-145 L [facility] HospitalPotassium Yefji2828-63-81 08:38:00* Test Item Value Reference Range Interpretation Comments Potassium Level (test code = 2823-3) 3.1 3.5-5.1 L [facility] HospitalChloride Xeelz6966-63-94 08:38:00* Test Item Value Reference Range Interpretation Comments Chloride Level (test code = 2075-0) 90 98-107 L [facility] HospitalCarbon Dioxide Kuovp1587-70-53 08:38:00* Test Item Value Reference Range Interpretation Comments Carbon Dioxide Level (test code = 2028-9) 28 22-29 [facility] HospitalAnion Zpe0681-21-75 08:38:00* Test Item Value Reference Range Interpretation Comments Anion Gap (test code = 89844-3) 15.1 8-16 [facility] HospitalGlucose Eseoj5092-61-27 08:38:00* Test Item Value Reference Range Interpretation Comments Glucose Level (test code = CIU1796) 101 74-118 [facility] HospitalCalcium Tkzvv1030-38-96 08:38:00* Test Item Value Reference Range Interpretation Comments Calcium Level (test code = 45817-8) 10.4 8.4-10.2 H [facility] HospitalCHEST 2 VGYZX8182-35-24 14:00:00 [facility] [address] [place] [address] Patient Name: MARIANNA GREGORIO MR #: [id number] : 1945 Age/Sex: 72/F Req #: [id number] Adm Physician: Ordered by: CATRACHITO VERA MD Report #: [id number] Location: OR Room/Bed: Procedure: [id number] DX/ CHEST 2 VIEWS Exam Date: 08/19/18 Exam Time: 1300 REPORT STATUS: Signed EXAMINATI ON: PA and lateral views of the chest. COMPARISON: None CLINICAL HISTO RY: Preoperative study for spinal surgery DISCUSSION: Lines/tube s: None. Lungs: The lungs are well inflated and clear. There is no eviden ce of pneumonia or pulmonary edema. Pleura: There is no pleural effusion or pneumothorax. Heart and mediastinum: The cardiomediastinal silhouette is normal. Bones and soft tissues: No acute bony abnormalities. Cervical spine fusion hardware partially visualized. Right upper quadrant surgical clip s likely reflect prior cholecystectomy. IMPRESSION: No acute cardiopul monary abnormalities. Signed by: Dr. Tabatha Rodriguez M.D. on 08/19 2:01 PM Dictated By: TABATHA RODRIGUEZ MD 1401 Transcribed By: JOSE on 08/19/18 1401 COPY TO: CATRACHITO VERA MD Prothrombin Ajbr7202-58-66 13:51:00* Test Item Value Reference Range Interpretation Comments Prothrombin Time (test code = 5902-2) 13.3 11.9-14.5 [facility] HospitalProthromb Time International Ratio 2018-08-19 13:51:00* Test Item Value Reference Range Interpretation Comments Prothromb Time International Ratio (test code = 6301-6) 0.96 Oral Anticoagulant Therapy INR Values:1. Low Intensity Therapy 1.5 - 2.02 . Moderate Intensity Therapy 2.0 - 3.03. High Intensity Therapy(1) 2.5 - 3. 54. High Intensity Therapy(2) 3.0 - 4.05. Panic Value INR > 5.0 [facility] HospitalActivated Partial Thromboplast Time 2018-08-19 13:51:00* Test Item Value Reference Range Interpretation Comments Activated Partial Thromboplast Time (test code = 87843-6) 32.7 23.8-35.5 [facility] HospitalProthrombin Lcpa2572-33-00 13:51:00* Test Item Value Reference Range Interpretation Comments Prothrombin Time (test code = 5902-2) 13.3 11.9-14.5 [facility] HospitalProthromb Time International Ratio 2018-08-19 13:51:00* Test Item Value Reference Range Interpretation Comments Prothromb Time International Ratio (test code = 6301-6) 0.96 Oral Anticoagulant Therapy INR Values:1. Low Intensity Therapy 1.5 - 2.02 . Moderate Intensity Therapy 2.0 - 3.03. High Intensity Therapy(1) 2.5 - 3. 54. High Intensity Therapy(2) 3.0 - 4.05. Panic Value INR > 5.0 [facility] HospitalActivated Partial Thromboplast Time 2018-08-19 13:51:00* Test Item Value Reference Range Interpretation Comments Activated Partial Thromboplast Time (test code = 50758-5) 32.7 23.8-35.5 [facility] HospitalActivated Partial Thromboplast Time 2018-08-19 13:51:00* Test Item Value Reference Range Interpretation Comments Activated Partial Thromboplast Time (test code = 24954-3) 32.7 23.8-35.5 [facility] HospitalActivated Partial Thromboplast Time 2018-08-19 13:51:00* Test Item Value Reference Range Interpretation Comments Activated Partial Thromboplast Time (test code = 92118-8) 32.7 23.8-35.5 [facility] HospitalWhite Blood Asaob7340-55-89 13:30:00* Test Item Value Reference Range Interpretation Comments White Blood Count (test code = 6690-2) 11.16 4.8-10.8 H [facility] HospitalRed Blood Ecbbo2414-36-74 13:30:00* Test Item Value Reference Range Interpretation Comments Red Blood Count (test code = 789-8) 4.47 3.6-5.1 [facility] HospitalHemoglobin2019-05-01 13:30:00* Test Item Value Reference Range Interpretation Comments Hemoglobin (test code = 13925-3) 14.4 12.0-16.0 [facility] HospitalHematocrit2019-05-01 13:30:00* Test Item Value Reference Range Interpretation Comments Hematocrit (test code = 4544-3) 40.3 34.2-44.1 [facility] HospitalMean Corpuscular Vhodls4791-32-03 13:30:00* Test Item Value Reference Range Interpretation Comments Mean Corpuscular Volume (test code = 787-2) 90.2 81-99 [facility] HospitalMean Corpuscular Ycoubqbtzj4472-52-90 13:30:00* Test Item Value Reference Range Interpretation Comments Mean Corpuscular Hemoglobin (test code = 785-6) 32.2 28-32 [facility] Corpuscular Hemoglobin Concent 2018-08-19 13:30:00* Test Item Value Reference Range Interpretation Comments Mean Corpuscular Hemoglobin Concent (test code = 786-4) 35.7 31-35 H [facility] HospitalRed Cell Distribution Whbya8807-69-37 13:30:00* Test Item Value Reference Range Interpretation Comments Red Cell Distribution Width (test code = 97217-0) 13.0 11.7 -14.4 [facility] HospitalPlatelet Nbdyj1182-52-56 13:30:00* Test Item Value Reference Range Interpretation Comments Platelet Count (test code = 777-3) 297 140-360 [facility] HospitalNeutrophils (%) (Auto)2018-08-19 13:30:00 * Test Item Value Reference Range Interpretation Comments Neutrophils (%) (Auto) (test code = 69735-7) 81.5 38.7-80.0 H [facility] HospitalLymphocytes (%) (Auto)2018-08-19 13:30:00 * Test Item Value Reference Range Interpretation Comments Lymphocytes (%) (Auto) (test code = 736-9) 8.2 18.0-39.1 L [facility] HospitalMonocytes (%) (Auto)2018-08-19 13:30:00* Test Item Value Reference Range Interpretation Comments Monocytes (%) (Auto) (test code = 5905-5) 9.0 4.4-11.3 [facility] HospitalEosinophils (%) (Auto)2018-08-19 13:30:00 * Test Item Value Reference Range Interpretation Comments Eosinophils (%) (Auto) (test code = 713-8) 0.3 0.0-6.0 [facility] HospitalBasophils (%) (Auto)2018-08-19 13:30:00* Test Item Value Reference Range Interpretation Comments Basophils (%) (Auto) (test code = 706-2) 0.4 0.0-1.0 [facility] HospitalIM GRANULOCYTES %2018-08-19 13:30:00* Test Item Value Reference Range Interpretation Comments IM GRANULOCYTES % (test code = IM GRANULOCYTES %) 0.6 0.0- 1.0 [facility] HospitalNeutrophils # (Auto)2018-08-19 13:30:00* Test Item Value Reference Range Interpretation Comments Neutrophils # (Auto) (test code = 751-8) 9.1 2.1-6.9 H [facility] HospitalLymphocytes # (Auto)2018-08-19 13:30:00* Test Item Value Reference Range Interpretation Comments Lymphocytes # (Auto) (test code = 14774-1) 0.9 1.0-3.2 L [facility] HospitalMonocytes # (Auto)2018-08-19 13:30:00* Test Item Value Reference Range Interpretation Comments Monocytes # (Auto) (test code = 742-7) 1.0 0.2-0.8 H [facility] HospitalEosinophils # (Auto)2018-08-19 13:30:00* Test Item Value Reference Range Interpretation Comments Eosinophils # (Auto) (test code = 711-2) 0.0 0.0-0.4 [facility] HospitalBasophils # (Auto)2018-08-19 13:30:00* Test Item Value Reference Range Interpretation Comments Basophils # (Auto) (test code = 704-7) 0.1 0.0-0.1 [facility] HospitalAbsolute Immature Granulocyte (auto 2018-08-19 13:30:00* Test Item Value Reference Range Interpretation Comments Absolute Immature Granulocyte (auto (dayron t code = Absolute Immature Granulocyte (auto) 0.07 0-0.1 [facility] HospitalWhite Blood Sunnu2430-16-93 13:30:00* Test Item Value Reference Range Interpretation Comments White Blood Count (test code = 6690-2) 11.16 4.8-10.8 H [facility] HospitalRed Blood Kxqgz6838-94-95 13:30:00* Test Item Value Reference Range Interpretation Comments Red Blood Count (test code = 789-8) 4.47 3.6-5.1 [facility] HospitalHemoglobin2019-05-01 13:30:00* Test Item Value Reference Range Interpretation Comments Hemoglobin (test code = 72587-3) 14.4 12.0-16.0 [facility] HospitalHematocrit2019-05-01 13:30:00* Test Item Value Reference Range Interpretation Comments Hematocrit (test code = 4544-3) 40.3 34.2-44.1 [facility] HospitalMean Corpuscular Huupnd9168-56-19 13:30:00* Test Item Value Reference Range Interpretation Comments Mean Corpuscular Volume (test code = 787-2) 90.2 81-99 [facility] HospitalMean Corpuscular Gipheinufy8020-95-93 13:30:00* Test Item Value Reference Range Interpretation Comments Mean Corpuscular Hemoglobin (test code = 785-6) 32.2 28-32 H [facility] HospitalMean Corpuscular Hemoglobin Concent 2018-08-19 13:30:00* Test Item Value Reference Range Interpretation Comments Mean Corpuscular Hemoglobin Concent (test code = 786-4) 35.7 31-35 H [facility] HospitalRed Cell Distribution Shnme8755-82-70 13:30:00* Test Item Value Reference Range Interpretation Comments Red Cell Distribution Width (test code = 71050-2) 13.0 11.7 -14.4 [facility]Plate[facility] [id number] 13:30:00* Test Item Value Reference Range Interpretation Comments Platelet Count (test code = 777-3) 297 140-360 [facility]Neutrophils (%) (Auto)2018-08-19 13:30:00 * Test Item Value Reference Range Interpretation Comments Neutrophils (%) (Auto) (test code = 46640-7) 81.5 38.7-80.0 H [facility]Lymphocytes (%) (Auto)2018-08-19 13:30:00 * Test Item Value Reference Range Interpretation Comments Lymphocytes (%) (Auto) (test code = 736-9) 8.2 18.0-39.1 L [facility]Mon[facility] (%) (Auto)2018-08-19 13:30:00* Test Item Value Reference Range Interpretation Comments Monocytes (%) (Auto) (test code = 5905-5) 9.0 4.4-11.3 [facility]Eosinophils (%) (Auto)2018-08-19 13:30:00 * Test Item Value Reference Range Interpretation Comments Eosinophils (%) (Auto) (test code = 713-8) 0.3 0.0-6.0 [facility]Basophils (%) (Auto)2018-08-19 13:30:00* Test Item Value Reference Range Interpretation Comments Basophils (%) (Auto) (test code = 706-2) 0.4 0.0-1.0 [facility]IM [facility]ULOC[facility]TES %2018-08-19 13:30:00* Test Item Value Reference Range Interpretation Comments IM GRANULOCYTES % (test code = IM GRANULOCYTES %) 0.6 0.0- 1.0 [facility]Neutrophils # (Auto)2018-08-19 13:30:00* Test Item Value Reference Range Interpretation Comments Neutrophils # (Auto) (test code = 751-8) 9.1 2.1-6.9 [facility]Lymphocytes # (Auto)2018-08-19 13:30:00* Test Item Value Reference Range Interpretation Comments Lymphocytes # (Auto) (test code = 70169-5) 0.9 1.0-3.2 L [facility]Monocytes # (Auto)2018-08-19 13:30:00* Test Item Value Reference Range Interpretation Comments Monocytes # (Auto) (test code = 742-7) 1.0 0.2-0.8 H [facility]Eosinophils # (Auto)2018-08-19 13:30:00* Test Item Value Reference Range Interpretation Comments Eosinophils # (Auto) (test code = 711-2) 0.0 0.0-0.4 [facility]Basophils # (Auto)2018-08-19 13:30:00* Test Item Value Reference Range Interpretation Comments Basophils # (Auto) (test code = 704-7) 0.1 0.0-0.1 [facility] HospitalAbsolute Immature Granulocyte (auto 2018-08-19 13:30:00* Test Item Value Reference Range Interpretation Comments Absolute Immature Granulocyte (auto (dayron t code = Absolute Immature Granulocyte (auto) 0.07 0-0.1 [facility]
--- OUTSIDE RECORDS SUMMARY | 2020-02-24 16:53 | XMS REPORT | Continuity of Care Document ---
Author Author [facility] t Organization [facility] Address [address] [place] [address] Phone Unavailable Care Team Providers Care Stopping Builder Name Role Phone NONSTAFF PCP Unavailable BOCCARDO, NATASHA Attphys Unavailable AMADO, KENDALL Attphys Unavailable MCLEOD MAGGIE Attphys Unavailable PAKZABAN, CATRACHITO Attphys Unavailable BOCCARDO, NATASHA Admphys Unavailable AMADO, KENDALL Admphys Unavailable Payers Payer Name Policy Type Policy Number Effective Date Expiration Date S [facility] Medicare A & B [id number] 2009 00:00:00 [facility] Life Insurance [id number] 2009 00:00:00 [facility] [id number] [facility] Problems Condition Name Condition Details Condition Category Status Onset Date Resolution Date Last Treatment Date Treating Clinician Comments Source Senile purpura Senile Purpura Problem Active 2019-01-25 00:00:00 [facility] Depressive disorder Depressive Disorder Problem Active 2019-01-25 00:00 :00 [facility] Peripheral vascular disease Peripheral Vascular Disease Problem Active 2019-01-25 00:00:00 [facility] Spinal stenosis of lumbar region Spinal Stenosis of Lumbar Regio n Problem Active 2018-08-24 00:00:00 [facility] Hypothyroidism Hypothyroidism Problem Active 2016-01-11 00:00:00 [facility] Hyperlipidemia Hyperlipidemia Problem Active 2016-01-11 00:00:00 [facility] Hypertensive disorder Hypertensive Disorder Problem Active 201 09-27-21 00:00:00 [place] [facility] Gastroesophageal reflux disease Gastroesophageal Reflux Disease Pro blem Active 2016-01-11 00:00:00 [facility] Osteoarthritis Osteoarthritis Problem Active 2016-01-11 00:00:00 [facility] Urinary incontinence Urinary Incontinence Problem Active 00:00:00 [facility] Pract ice Paronychia Paronychia Problem Active [facility] Abdominal pain Abdominal pain Problem Active [facility] Hyponatremia Hyponatremia Problem Active [facility] Allergies, Adverse Reactions, Alerts Allergy Name Allergy Type Status Severity Reaction(s) Onset Date Inacti ve Date Treating Clinician Comments Source quinine DA Active SV 2016-06-12 00:00:00 [facility] Quinine Allergy to Substance Active Severe FLU-LIKE SYMPTO MS 2010-09-14 00:00:00 [facility] Social History Smoking Status Start Date Stop Date Source Former Smoker [place] lise Medications Ordered Medication Name Filled Medication Name Start Date Stop Da te Current Medication? Ordering Clinician Indication Dosage Frequency Signature (SIG) Comments Components Source clobetasol 0.05 % scalp solution BID clobetasol 0.05 % scalp soluti on BID No clobetasol 0.05 % scalp solution BID [facility] cranberry extract 250 mg capsule Take 1 capsule every day by oral route. cranberry extract 250 mg capsule Take 1 capsule every day by oral route. No 1capsule(s) Q1D cranberry extrac t 250 mg capsule Take 1 capsule every day by oral route. [facility] Dexilant 60 mg capsule, delayed release Take 1 capsule every day by oral route. Dexilant 60 mg capsule, delayed release Take 1 capsule every day by oral route. No 1capsule(s) Q1D Dexilant 60 mg capsule, delayed release Take 1 capsule every day by oral route. [facility] ezetimibe 10 mg tablet TAKE 1 TABLET BY MOUTH EVERY DA Y ezetimibe 10 mg tablet TAKE 1 TABLET BY MOUTH EVERY DAY No ezetimibe 10 mg tablet TAKE 1 TABLET BY MOUTH EVERY DAY [facility] levothyroxine 75 mcg tablet TAKE 1 TABLET BY MOUTH BINH DIRECTED levothyroxine 75 mcg tablet TAKE 1 TABLET BY MOUTH EVERY DAY DIRECTED No levothyroxine 75 mcg tablet TAKE 1 TABLET BY MOUTH EVERY DAY DIRECTED [facility] lisinopril 40 mg tablet Take 1 tablet ev julio day by oral route as directed for 90 days. lisinopril 40 mg tablet Take 1 tablet ev julio day by oral route as directed for 90 days. No lisinopril 40 mg tablet Take 1 tablet every day by oral route as directed for 90 days. [facility] meloxicam 15 mg tablet TAKE 1 TABLET BY MOUTH EVERY DA Y NEEDED meloxicam 15 mg tablet TAKE 1 TABLET BY MOUTH EVERY DAY NEEDED No meloxicam 15 mg tablet TAKE 1 TABLET BY MOUTH EVERY DAY NEEDED [facility] metoclopramide 10 mg tablet Take 1 tablet 4 times a da y by oral route. metoclopramide 10 mg tablet Take 1 tablet 4 times a day by oral route. No metoclopramide 10 mg tablet Take 1 tablet 4 janine es a day by oral route. [facility] Myrbetriq 25 mg tablet,extended release Take 1 tablet every day by oral route as directed for 30 days. Myrbetriq 25 mg tablet,extended release Take 1 tablet every day by oral route as directed for 30 days. No Myrbetriq 25 mg tablet,extended release Take 1 tablet every day by oral route as directed for [address] [facility] Pract ice oxycodone-acetaminophen 7.5 mg-325 mg ta blet Take 1 tablet every 6-8 hours by oral route as needed. oxycodone-acetaminophen 7.5 mg-325 mg ta blet Take 1 tablet every 6-8 hours by oral route as needed. No oxycodone-acetaminophen 7.5 mg-325 mg tablet Take 1 tablet every 6-8 hours by oral route as needed. [facility] pregabalin 150 mg capsule Take 1 capsule twice a day b y oral route. pregabalin 150 mg capsule Take 1 capsule twice a day by oral route. No pregabalin 150 mg capsule Take 1 capsule twice a day by oral route. [facility] simvastatin 40 mg tablet TAKE 1 TABLET(S) EVERY DAY BY ORAL ROUTE FOR 90 DAYS. simvastatin 40 mg tablet TAKE 1 TABLET(S) EVERY DAY BY ORAL ROUTE FOR 90 DAYS. No simvastati n 40 mg tablet TAKE 1 TABLET(S) EVERY DAY BY ORAL ROUTE FOR [address] [facility] Pract ice triamcinolone acetonide 0.5 % [...] 2 TIMES PER DAY FOR 2 WEEKS [facility] Citalopram Hydrobromide (Citalopram Hbr) 20 Mg Tablet Citalopram Hydrobromide (Citalopram Hbr) 20 Mg Tablet Yes 20 Daily [facility] Dexlansoprazole (Dexilant) 60 Mg Khurram. Dexlansopra zole (Dexilant) 60 Mg Cap. Yes 60 Daily [facility] Ezetimibe (Zetia) 10 Mg Tablet Ezetimibe (Zetia) 10 Mg Tablet Yes 10 Daily [facility] Gabapentin 300 Mg Capsule Gabapentin 300 Mg Capsule Yes 300 Every 4 Hours [facility] Levothyroxine Sodium (Synthroid) 75 Mcg Tab Levothyrox ine Sodium (Synthroid) 75 Mcg Tab Yes 75 Daily [facility] Lisinopril 10 Mg Tablet Lisinopril 10 Mg Tablet Yes 10 Twice A Day [facility] Meloxicam 7.5 Mg Tablet Meloxicam 7.5 Mg Tablet Yes 15 Daily [facility] Simvastatin 40 Mg Tablet Simvastatin 40 Mg Tablet Yes 40 Today At 9:00PM [facility] Solifenacin Succinate (Vesicare) 5 Mg Tablet Solifenac in Succinate (Vesicare) 5 Mg Tablet Yes 10 Daily [facility] Lisinopril/Hydrochlorothiazide (Lisinopr il-Hctz 20-25 Mg Tab) 1 Each Tablet, 1 Tab Oral Lisinopril/Hydrochlorothiazide (Lisinopr il-Hctz 20-25 Mg Tab) 1 Each Tablet, 1 Tab Oral 2018-09-22 00:00:00 No 1 Daily [facility] Dexlansoprazole (Dexilant) 60 Mg Cap., 60 Mg Oral Dexlansoprazole (Dexilant) 60 Mg Cap., 60 Mg Oral 2018-09-21 00:00:00 No 60 Daily [facility] Ezetimibe (Zetia) 10 Mg Tablet, 10 Mg Oral Ezetimibe ( Zetia) 10 Mg Tablet, 10 Mg Oral 2018-09-21 00:00:00 No 10 Daily [facility] Gabapentin 300 Mg Capsule, 300 Mg Oral Gabapentin 300 Mg Capsule , 300 Mg Oral 2018-09-21 00:00:00 No 300 Twice A Day [facility] Levothyroxine Sodium 75 Mcg Tablet, 75 Mcg Oral Levoth yroxine Sodium 75 Mcg Tablet, 75 Mcg Oral 2018-09-21 00:00:00 No 75 Danyell y [facility] Lisinopril/Hydrochlorothiazide (Lisinopril-Hctz 20-25 Mg Tab) 1 Each Tablet, Lisinopril/Hydrochlorothiazide (Lisinopril-Hctz 20-25 Mg Tab) 1 Each Tablet, 2018-09-21 00:00:00 No Daily [facility] Meloxicam 7.5 Mg Tablet, 15 Mg Oral Meloxicam 7.5 Mg Tablet, 15 Mg Oral 2018-09-21 00:00:00 No 15 Daily [facility] Metoclopramide Hcl (Reglan) 10 Mg Tablet, Metocloprami de Hcl (Reglan) 10 Mg Tablet, 2018-09-21 00:00:00 No [facility] Simvastatin 40 Mg Tablet, 40 Mg Oral Simvastatin 40 Mg Tablet, 4 0 Mg Oral 2018-09-21 00:00:00 No 40 Bedtime [facility] Solifenacin Succinate (Vesicare) 5 Mg Tablet, 10 Mg Or al Solifenacin Succinate (Vesicare) 5 Mg Tablet, 10 Mg Oral 2018-09-21 00:00:00 No 1 0 Daily [facility] Escitalopram Oxalate (Lexapro) 10 Mg Tablet, 20 Mg Ora l Escitalopram Oxalate (Lexapro) 10 Mg Tablet, 20 Mg Oral 2018-09-17 00:00:00 No 2 0 Daily [facility] Hydrocodone Bit/Acetaminophen ([place] 7.5-325 Tablet) 1 Each Tablet, 1 Ea Oral Hydrocodone Bit/Acetaminophen ([place] 7.5-325 Tablet) 1 Each Tablet, 1 Ea Oral 2018-09-17 00:00:00 No 1 As Needed [facility] Hydrocodone Bit/Acetaminophen ([place] 7.5-325 Tablet) 1 Each Tablet, 1 Ea Oral Hydrocodone Bit/Acetaminophen ([place] 7.5-325 Tablet) 1 Each Tablet, 1 Ea Oral 2018-09-17 00:00:00 No 1 Every 6 Hours as needed for Mild Pain (1-3) Or Fever>100.8 [facility] Methocarbamol 750 Mg Tablet, 500 Mg Oral Methocarbamol 750 Mg Tablet, 500 Mg Oral 2018-09-17 00:00:00 No 500 Daily as needed fo r Q6h [facility] Metoclopramide Hcl 10 Mg Tablet, 10 Mg Oral Metoclopra mide Hcl 10 Mg Tablet, 10 Mg Oral 2018-09-17 00:00:00 No 10 Four Times Daily [facility] Resperidone , Oral Resperidone , Oral 2018-08-19 00:00:00 No Daily for Sleep [facility] Hydrochlorothiazide 25 Mg Tablet, 25 Mg Oral Hydrochlo rothiazide 25 Mg Tablet, 25 Mg Oral 2016-05-13 00:00:00 No 25 Daily [facility] Levothyroxine Sodium (Synthroid) 75 Mcg Tab, 75 Mcg Or al Levothyroxine Sodium (Synthroid) 75 Mcg Tab, 75 Mcg Oral 2016-05-10 00:00:00 No 75 Daily [facility] Lisinopril (Zestril*) 10 Mg Tablet, 10 Mg Oral Lisinop ril (Zestril*) 10 Mg Tablet, 10 Mg Oral 2016-05-10 00:00:00 No 10 Daily [facility] Tolterodine Tartrate (Detrol La) 4 Mg Cap.er.24h, 4 Mg Oral Tolterodine Tartrate (Detrol La) 4 Mg Cap.er.24h, 4 Mg Oral 2014-09-22 00:00:00 No 4 Daily [facility] Immunizations Ordered Immunization Name Filled Immunization Name Date Status Comments Source influenza, high dose seasonal influenza, high dose seasonal 2018 15:34:[address] [facility] pneumococcal polysaccharide PPV23 pneumococcal polysaccharid e PPV23 2018-06-30 16:18:00 [facility] zoster subunit zoster subunit 2018-06-30 16:17:[address] [facility] zoster subunit zoster subunit 2018-04-06 14:02:00 Completed [facility] influenza, high dose seasonal influenza, high dose seasonal 2017 12:47:43 Completed [facility] influenza, high dose seasonal influenza, high dose seasonal 2016 14:25:[address] [facility] pneumococcal conjugate PCV 13 pneumococcal conjugate PCV 13 2016 10:57:00 Completed [facility] influenza, high dose seasonal influenza, high dose seasonal 2015 12:59:55 Completed [facility] influenza, injectable, quadrivalent influenza, injectable, q uadrivalent 2014-12-20 00:00:00 [facility] zoster zoster 2014-04-21 00:00:00 Completed [facility] pneumococcal, unspecified formulation pneumococcal, unspecif ied formulation 2014-04-21 00:00:00 [facility] Tdap Tdap 2014-04-21 00:00:00 Completed [facility] MMR MMR 1949-04-21 00:00:00 Completed [facility] Vital Signs Vital Name Observation Time Observation Value Comments Source BP Diastolic 2019-01-28 00:00:00 70 mm[Hg] [facility] Height 2019-01-28 00:00:00 64.5 [in_i] [facility] BMI (Body Mass Index) 2019-01-28 00:00:00 25.3 kg/m2 [facility] BP Systolic 2019-01-28 00:00:00 148 mm[Hg] [facility] Body Weight 2019-01-28 00:00:00 150 [lb_av] [facility] BP Diastolic 2018-12-31 00:00:00 80 mm[Hg] [facility] Height 2018-12-31 00:00:00 64.5 [in_i] [facility] BMI (Body Mass Index) 2018-12-31 [...] Family Practice Height 2018-06-30 00:00:00 64.5 [in_i] [facility] BMI (Body Mass Index) 2018-06-30 00:00:00 26.2 kg/m2 [facility] BP Systolic 2018-06-30 00:00:00 136 mm[Hg] [facility] Body Weight 2018-06-30 00:00:00 155 [lb_av] [facility] Procedures Procedure Date / Time Performed Performing Clinician Sourc e electrocardiogram 2018-12-31 00:00:00 [facility] Colonoscopy with biopsy 2018-09-21 00:00:00 MAGGIE MCLEOD [facility] X-ray of chest, two views 2018-09-21 00:00:00 ALYSSA PASCUAL CH, I [facility] Computed tomography of abdomen and pelvis with contrast 2018 00:00:00 MAGGIE MCLEOD [facility] LOW BACK DISK SURGERY 2018-08-20 00:00:00 CATRACHITO VERA [facility] X-ray of chest, two views 2018-08-19 00:00:[address] [facility] MRI, lumbar spine, w/o contrast 2018-08-10 00:00:00 [facility] MAMMO, diagnostic, digital, bilateral 2018-06-10 00:00:00 [facility] US, breast 2018-06-10 00:00:[address] [facility] Colonoscopy 2014-04-21 00:00:00 [facility] Hysterectomy (Total) 1984-04-21 00:00:00 [facility] Functional Endoscopic Sinus Surgery - Po stoperative Suction Clearance under Local Anesthetic [facility] Encounters Start Date/Time End Date/Time Encounter Type Admission Type [facility] Care Facility Care Department Encounter ID Source 2019-01-28 00:00:00 2019-01-28 00:00:00 Ajit vaughn MD: [address] [place] [address], Ph. [facility] [id number] [facility] 2018-12-31 00:00:00 2018-12-31 00:00:00 Ajit vaughn MD: [address] [place] [address], Ph. [facility] [id number] [facility] 2018-10-27 00:00:00 2018-10-27 00:00:00 Ajit vaughn MD: [address] [place] [address], Ph. [facility] [id number] [facility] 2018-10-02 12:55:00 2018-10-18 23:59:00 Discharged Recurring [facility] [id number] [facility] 2018-09-21 00:31:00 2018-09-22 13:40:00 Discharged Inpatient (obs) 1 FAIZA FISCHER [facility] [id number] [facility] 2018-09-07 11:07:00 2018-09-18 23:59:00 Discharged Recurring [facility] [id number] [facility] 2018-09-16 12:41:00 2018-09-16 12:41:00 Registered Clinic 3 MAGGIE MCLEOD [facility] [id number] [facility] 2018-08-24 00:00:00 2018-08-24 00:00:00 Ivette Batista MD: [address] [place] [address], Ph. [facility] [id number] [facility] 2018-08-20 13:02:00 2018-08-21 10:24:00 Discharged Inpatient (obs) 3 CATRACHITO VERA [facility] [id number] [facility] 2018-08-17 00:00:00 2018-08-17 00:00:00 Ivette Batista MD: [address] [place] [address], Ph. [facility] [id number] [facility] 2018-08-10 00:00:00 2018-08-10 00:00:00 Ivette Batista MD: [address] [place] [address], Ph. [facility] [id number] [facility] 2018-06-30 00:00:00 2018-06-30 00:00:00 Ajit vaughn MD: [address] [place] [address], Ph. [facility] [id number] [facility] Results Test Description Test Time Test Comments Results Result Comments Source [facility] 2020-02-21 14:05:00 [facility] : 1945 Sex: F [place] [address] Patient Name: MARIANNA GREGORIO MR #: [id number] : 1945 Age/Sex: 74/F Req #: [id number] Adm Physician: NATASHA REYNOLDS MD Ordered by: CRISTIAN BALDWIN MD Report #: [id number] Location: [facility] Room/Bed: [place] [address] Procedure: [id number] US/US ABDOMEN COMPLETE Exam Date: 02/21/20 Exam [...] MD CHEST SINGLE (PORTABLE) 2020-02-20 10:07:00 [facility] : 1945 Sex: F [facility] [address] [place] [address] Patient Name: MARIANNA GREGORIO MR #: [id number] : 1945 Age/Sex: 74/F Req #: [id number] Adm Physician: NATASHA REYNOLDS MD Ordered by: DEVIN MIRELES MD Report #: [id number] Location: [facility] Room/Bed: [place] [address] Procedure: [id number] DX/CHEST SINGLE (PORTABLE) Exam Date: 02/20/20 Exam [...] on 02/20/201008 COPY TO: DEVIN MIRELES MD, [facility] CT CHEST W 2020-02-16 17:44:00 [facility] : 1945 Sex: [place] [address] Patient Name: MARIANNA GREGORIO MR #: [id number] : 1945 Age/Sex: 74/F Req #: [id number] Adm Physician: NATASHA REYNOLDS MD Ordered by: CRISTIAN BALDWIN MD Report #: [id number] Location: [facility] Room/Bed: [place] [address] Procedure: [id number] CT/CT CHEST W Exam Date: 02/16/20 Exam Time: 1650 REPORT STATUS: Signed EXAM: CT Chest WITH contrast (PE Protocol) INDICATION: r/o pe [id number] COMPARISON: Chest radiographs 02/14/2020 TECHNIQUE: Chest [...] MD CHEST SINGLE (PORTABLE) 2020-02-14 13:46:00 [facility] : 1945 Sex: F [facility] [address] [place] [address] Patient Name: MARIANNA GREGORIO MR #: [id number] : 1945 Age/Sex: 74/F Req #: [id number] Adm Physician: Ordered by: PIETRO HOPKINS DO Report #: [id number] Location: ER Room/Bed: Procedure: [id number] DX/CHEST SINGLE (PORTABLE) Exam Date: 02/14/20 Exam Time: 1330 REPORT STATUS: Signed TECHNIQUE: Frontal view of the chest. INDICATION: Y COVID [id number] 1330 COMPARISON: 09/21/2018 DISCUSSION: Limited evaluation due [...] Test Item Urine Chloride (test code = 76495-8) 84 Not Estab. [facility] Ch[facility] mmol/Erq3574-88-78 23:03:00* Test Item Value Reference Range Interpretation Comments Urine Chloride mmol/Day (test code = 54661-6) Comment 110-250 No total volume submitted. Unable to calculate 24 hourresult.Performed at: [facility] [address] [id number] Director: Gomez espino MD, Phone: [phone] [facility]cosPhosphorus Burpa9210-62-29 06:03:00* Test Item Value Reference Range Interpretation Comments Phosphorus Level (test code = GUP5554) 2.0 2.3-4.7 L [facility]cosMagnesium Hxuke3190-20-31 06:03:00* Test Item Value Reference Range Interpretation Comments Magnesium Level (test code = 66902-8) 2.1 1.3-2.1 [facility]osph[facility] Kpyrz6090-36-93 06:03:00* Test Item Value Reference Range Interpretation Comments Phosphorus Level (test code = EBU9843) 2.0 2.3-4.7 L [facility] Kgado2887-96-74 06:03:00* Test Item Value Reference Range Interpretation Comments Magnesium Level (test code = 35150-9) 2.1 1.3-2.1 [facility] Kbych6429-12-03 05:45:00* Test Item Value Reference Range Interpretation Comments Sodium Level (test code = 2951-2) 134 136-145 L [facility]assium Qqawj0325-38-84 05:45:00* Test Item Value Reference Range Interpretation Comments Potassium Level (test code = 2823-3) 3.2 3.5-5.1 L [facility]Chloride Fagpg0846-94-97 05:45:00* Test Item Value Reference Range Interpretation Comments Chloride Level (test code = 2075-0) 106 98-107 [facility]cosCarbon Dioxide Jfuux2925-71-73 05:45:00* Test Item Value Reference Range Interpretation Comments Carbon Dioxide Level (test code = 2028-9) 23 22-29 [facility]cosAnion Vve6639-87-12 05:45:00* Test Item Value Reference Range Interpretation Comments Anion Gap (test code = 87596-5) 8.2 8-16 [facility]cosBlood Urea Npbioawu8271-61-24 05:45:00* Test Item Value Reference Range Interpretation Comments Blood Urea Nitrogen (test code = 3094-0) < 5 7-26 L [facility]cosCreatinine2019-06-04 05:45:00* Test Item Value Reference Range Interpretation Comments Creatinine (test code = 2160-0) 0.61 0.57-1.11 [facility]cosBUN/Creatinine Frgwe3639-95-89 05:45:00* Test Item Value Reference Range Interpretation Comments BUN/Creatinine Ratio (test code = 3097-3) 8 6-25 [facility] MarcosEstimat Glomerular Filtration Rate 2018-09-22 05:45:00* Test Item Value Reference Range Interpretation Comments Estimat Glomerular Filtration Rate (test code = 833637355) > 60 >60 Ranges were taken from the National Kidney Disease Education Program and the [facility] hospital[facility] Kidney Foundation literature.Reference ranges:60 or greater: Ldixpw98-71 ( for 3 consecutive months): Chronic kidney disease 15 or less: Kidney failureChristus Santa Rosa Hospital – San MarcosGlucose Lwpjw8005-45-54 05:45:00* Test Item Value Reference Range Interpretation Comments Glucose Level (test code = TZD3246) 87 74-118 [facility]cosCalcium Egkcw3721-05-08 05:45:00* Test Item Value Reference Range Interpretation Comments Calcium Level (test code = 03419-5) 8.2 8.4-10.2 L [facility] MarcosTotal Mvbvfktal1060-14-33 05:45:00* Test Item Value Reference Range Interpretation Comments Total Bilirubin (test code = 1975-2) 0.4 0.2-1.2 [facility] MarcosAspartate Amino Transf (AST/SGOT) 2018-09-22 05:45:00* Test Item Value Reference Range Interpretation Comments Aspartate Amino Transf (AST/SGOT) (test code = Aspartate Amino Transf (AST/SGOT)) 17 5-34 [facility] MarcosAlanine Aminotransferase (ALT/SGPT) 2018-09-22 05:45:00* Test Item Value Reference Range Interpretation Comments Alanine Aminotransferase (ALT/SGPT) (test code = 1742-6) 16 0-55 [facility]cosTotal Akcymsw4188-70-10 05:45:00* Test Item Value Reference Range Interpretation Comments Total Protein (test code = 2885-2) 5.4 6.5-8.1 L [facility] MarcosAlbumin2019-06-04 05:45:00* Test Item Value Reference Range Interpretation Comments Albumin (test code = 1751-7) 3.0 3.5-5.0 L [facility]cosGlobulin2019-06-04 05:45:00* Test Item Value Reference Range Interpretation Comments Globulin (test code = 06179-4) 2.4 2.3-3.5 [facility]cosAlbumin/Globulin Ajgjx7474-25-84 05:45:00 * Test Item Value Reference Range Interpretation Comments Albumin/Globulin Ratio (test code = 1759-0) 1.3 0.8-2.0 [facility] MarcosAlkaline Lekwuwxbwha9325-32-20 05:45:00* Test Item Value Reference Range Interpretation Comments Alkaline Phosphatase (test code = 6768-6) 58 40-150 [facility] Murjz7967-81-63 05:45:00* Test Item Value Reference Range Interpretation Comments Sodium Level (test code = 2951-2) 134 136-145 L [facility]Potassium Drdby9092-50-03 05:45:00* Test Item Value Reference Range Interpretation Comments Potassium Level (test code = 2823-3) 3.2 3.5-5.1 L [facility]cosChloride Qqwla3955-49-06 05:45:00* Test Item Value Reference Range Interpretation Comments Chloride Level (test code = 2075-0) 106 98-107 [facility]cosCarbon Dioxide Uqndd2081-51-77 05:45:00* Test Item Value Reference Range Interpretation Comments Carbon Dioxide Level (test code = 2028-9) 23 22-29 [facility]cosAnion Cya5349-92-90 05:45:00* Test Item Value Reference Range Interpretation Comments Anion Gap (test code = 62690-0) 8.2 8-16 [facility]cosBlood Urea Fkvizjra3600-38-55 05:45:00* Test Item Value Reference Range Interpretation Comments Blood Urea Nitrogen (test code = 3094-0) < 5 7-26 L [facility]cosCreatinine2019-06-04 05:45:00* Test Item Value Reference Range Interpretation Comments Creatinine (test code = 2160-0) 0.61 0.57-1.11 [facility]cosBUN/Creatinine Yofum3509-63-95 05:45:00* Test Item Value Reference Range Interpretation Comments BUN/Creatinine Ratio (test code = 3097-3) 8 6-25 [facility]cosEstimat Glomerular Filtration Rate 2018-09-22 05:45:00* Test Item Value Reference Range Interpretation Comments Estimat Glomerular Filtration Rate (test code = 302888405) > 60 >60 Ranges were taken from the National Kidney Disease Education Program and the [facility] Foundation literature.Reference ranges:60 or greater: Chueng02-50 ( for 3 consecutive months): Chronic kidney disease 15 or less: Kidney failureChrist[facility] – San MarcosGlucose Czvir9647-98-89 05:45:00* Test Item Value Reference Range Interpretation Comments Glucose Level (test code = SMY5521) 87 74-118 [facility]cosCalcium Docpa3285-64-48 05:45:00* Test Item Value Reference Range Interpretation Comments Calcium Level (test code = 52998-4) 8.2 8.4-10.2 L [facility]cosTotal Qccecaiww2928-81-56 05:45:00* Test Item Value Reference Range Interpretation Comments Total Bilirubin (test code = 1975-2) 0.4 0.2-1.2 [facility] MarcosAspartate Amino Transf (AST/SGOT) 2018-09-22 05:45:00* Test Item Value Reference Range Interpretation Comments Aspartate Amino Transf (AST/SGOT) (test code = Aspartate Amino Transf (AST/SGOT)) 17 5-34 [facility]cosAlanine Aminotransferase (ALT/SGPT) 2018-09-22 05:45:00* Test Item Value Reference Range Interpretation Comments Alanine Aminotransferase (ALT/SGPT) (test code = 1742-6) 16 0-55 [facility] Hjpsigh4650-35-87 05:45:00* Test Item Value Reference Range Interpretation Comments Total Protein (test code = 2885-2) 5.4 6.5-8.1 L [facility] MarcosAlbumin2019-06-04 05:45:00* Test Item Value Reference Range Interpretation Comments Albumin (test code = 1751-7) 3.0 3.5-5.0 L [facility]cosGlobulin2019-06-04 05:45:00* Test Item Value Reference Range Interpretation Comments Globulin (test code = 25554-9) 2.4 2.3-3.5 [facility]cosAlbumin/Globulin Zbhde3841-42-42 05:45:00 * Test Item Value Reference Range Interpretation Comments Albumin/Globulin Ratio (test code = 1759-0) 1.3 0.8-2.0 [facility]cosAlkaline Daeeakvolaj5854-50-09 05:45:00* Test Item Value Reference Range Interpretation Comments Alkaline Phosphatase (test code = 6768-6) 58 40-150 [facility] MarcosProthrombin Kina7854-27-85 05:39:00* Test Item Value Reference Range Interpretation Comments Prothrombin Time (test code = 5902-2) 14.3 11.9-14.5 [facility]cosProthromb Time International Ratio 2018-09-22 05:39:00* Test Item Value Reference Range Interpretation Comments Prothromb Time International Ratio (test code = 6301-6) 1.06 Oral Anticoagulant Therapy INR Values:1. Low Intensity Therapy 1.5 - 2.02 . Moderate Intensity Therapy 2.0 - 3.03. High Intensity Therapy(1) 2.5 - 3. 54. High Intensity Therapy(2) 3.0 - 4.05. Panic Value INR > 5.0 [facility]cosProthrombin Tkur7191-61-56 05:39:00* Test Item Value Reference Range Interpretation Comments Prothrombin Time (test code = 5902-2) 14.3 11.9-14.5 [facility]cosProthromb Time International Ratio 2018-09-22 05:39:00* Test Item Value Reference Range Interpretation Comments Prothromb Time International Ratio (test code = 6301-6) 1.06 Oral Anticoagulant Therapy INR Values:1. Low Intensity Therapy 1.5 - 2.02 . Moderate Intensity Therapy 2.0 - 3.03. High Intensity Therapy(1) 2.5 - 3. 54. High Intensity Therapy(2) 3.0 - 4.05. Panic Value INR > 5.0 [facility]cosWhite Blood Zzssz2126-78-75 05:21:00* Test Item Value Reference Range Interpretation Comments White Blood Count (test code = 6690-2) 6.82 4.8-10.8 [facility]cosRed Blood Fazuo5050-57-33 05:21:00* Test Item Value Reference Range Interpretation Comments Red Blood Count (test code = 789-8) 3.73 3.6-5.1 [facility]cosHemoglobin2019-06-04 05:21:00* Test Item Value Reference Range Interpretation Comments Hemoglobin (test code = 77818-4) 11.7 12.0-16.0 L [facility]cosHematocrit2019-06-04 05:21:00* Test Item Value Reference Range Interpretation Comments Hematocrit (test code = 4544-3) 33.9 34.2-44.1 L [facility] MarcosMean Corpuscular Kexsyr8224-94-45 05:21:00* Test Item Value Reference Range Interpretation Comments Mean Corpuscular Volume (test code = 787-2) 90.9 81-99 [facility]cosMean Corpuscular Wajfrbzand5090-77-21 05:21:00* Test Item Value Reference Range Interpretation Comments Mean Corpuscular Hemoglobin (test code = 785-6) 31.4 28-32 [facility]cosMean Corpuscular Hemoglobin Concent 2018-09-22 05:21:00* Test Item Value Reference Range Interpretation Comments Mean Corpuscular Hemoglobin Concent (test code = 786-4) 34.5 31-35 [facility]cosRed Cell Distribution Qaddf4226-16-21 05:21:00* Test Item Value Reference Range Interpretation Comments Red Cell Distribution Width (test code = 71272-2) 13.7 11.7 -14.4 [facility] MarcosPlatelet Tisot3072-36-58 05:21:00* Test Item Value Reference Range Interpretation Comments Platelet Count (test code = 777-3) 284 140-360 [facility]cosNeutrophils (%) (Auto)2018-09-22 05:21:00 * Test Item Value Reference Range Interpretation Comments Neutrophils (%) (Auto) (test code = 70075-4) 63.3 38.7-80.0 [facility]cosLymphocytes (%) (Auto)2018-09-22 05:21:00 * Test Item Value Reference Range Interpretation Comments Lymphocytes (%) (Auto) (test code = 736-9) 22.7 18.0-39.1 [facility]cosMonocytes (%) (Auto)2018-09-22 05:21:00* Test Item Value Reference Range Interpretation Comments Monocytes (%) (Auto) (test code = 5905-5) 10.3 4.4-11.3 [facility]cosEosinophils (%) (Auto)2018-09-22 05:21:00 * Test Item Value Reference Range Interpretation Comments Eosinophils (%) (Auto) (test code = 713-8) 1.5 0.0-6.0 [facility]cosBasophils (%) (Auto)2018-09-22 05:21:00* Test Item Value Reference Range Interpretation Comments Basophils (%) (Auto) (test code = 706-2) 1.0 0.0-1.0 [facility]cosIM GRANULOCYTES %2018-09-22 05:21:00* Test Item Value Reference Range Interpretation Comments IM GRANULOCYTES % (test code = IM GRANULOCYTES %) 1.2 0.0- 1.0 H [facility]cosNeutrophils # (Auto)2018-09-22 05:21:00* Test Item Value Reference Range Interpretation Comments Neutrophils # (Auto) (test code = 751-8) 4.3 2.1-6.9 [facility]cosLymphocytes # (Auto)2018-09-22 05:21:00* Test Item Value Reference Range Interpretation Comments Lymphocytes # (Auto) (test code = 08464-6) 1.6 1.0-3.2 [facility]cosMonocytes # (Auto)2018-09-22 05:21:00* Test Item Value Reference Range Interpretation Comments Monocytes # (Auto) (test code = 742-7) 0.7 0.2-0.8 [facility]Eosinophils # (Auto)2018-09-22 05:21:00* Test Item Value Reference Range Interpretation Comments Eosinophils # (Auto) (test code = 711-2) 0.1 0.0-0.4 [facility]cosBasophils # (Auto)2018-09-22 05:21:00* Test Item Value Reference Range Interpretation Comments Basophils # (Auto) (test code = 704-7) 0.1 0.0-0.1 [facility] MarcosAbsolute Immature Granulocyte (auto 2018-09-22 05:21:00* Test Item Value Reference Range Interpretation Comments Absolute Immature Granulocyte (auto (dayron t code = Absolute Immature Granulocyte (auto) 0.08 0-0.1 [facility]cosWhite Blood Furgl2892-49-69 05:21:00* Test Item Value Reference Range Interpretation Comments White Blood Count (test code = 6690-2) 6.82 4.8-10.8 [facility]cosRed Blood Oqafv9469-09-42 05:21:00* Test Item Value Reference Range Interpretation Comments Red Blood Count (test code = 789-8) 3.73 3.6-5.1 [facility]cosHemoglobin2019-06-04 05:21:00* Test Item Value Reference Range Interpretation Comments Hemoglobin (test code = 08809-8) 11.7 12.0-16.0 L [facility]cosHematocrit2019-06-04 05:21:00* Test Item Value Reference Range Interpretation Comments Hematocrit (test code = 4544-3) 33.9 34.2-44.1 L [facility] MarcosMean Corpuscular Ibnwrk5469-26-40 05:21:00* Test Item Value Reference Range Interpretation Comments Mean Corpuscular Volume (test code = 787-2) 90.9 81-99 [facility]cosMean Corpuscular Izynbwuhgm3136-75-56 05:21:00* Test Item Value Reference Range Interpretation Comments Mean Corpuscular Hemoglobin (test code = 785-6) 31.4 28-32 [facility]cosMean Corpuscular Hemoglobin Concent 2018-09-22 05:21:00* Test Item Value Reference Range Interpretation Comments Mean Corpuscular Hemoglobin Concent (test code = 786-4) 34.5 31-35 [facility]cosRed Cell Distribution Mjste7392-86-01 05:21:00* Test Item Value Reference Range Interpretation Comments Red Cell Distribution Width (test code = 36760-7) 13.7 11.7 -14.4 [facility] MarcosPlatelet Fdkwy9311-70-07 05:21:00* Test Item Value Reference Range Interpretation Comments Platelet Count (test code = 777-3) 284 140-360 [facility]cosNeutrophils (%) (Auto)2018-09-22 05:21:00 * Test Item Value Reference Range Interpretation Comments Neutrophils (%) (Auto) (test code = 04033-4) 63.3 38.7-80.0 [facility] MarcosLymphocytes (%) (Auto)2018-09-22 05:21:00 * Test Item Value Reference Range Interpretation Comments Lymphocytes (%) (Auto) (test code = 736-9) 22.7 18.0-39.1 [facility]cosMonocytes (%) (Auto)2018-09-22 05:21:00* Test Item Value Reference Range Interpretation Comments Monocytes (%) (Auto) (test code = 5905-5) 10.3 4.4-11.3 [facility]cosEosinophils (%) (Auto)2018-09-22 05:21:00 * Test Item Value Reference Range Interpretation Comments Eosinophils (%) (Auto) (test code = 713-8) 1.5 0.0-6.0 [facility]cosBasophils (%) (Auto)2018-09-22 05:21:00* Test Item Value Reference Range Interpretation Comments Basophils (%) (Auto) (test code = 706-2) 1.0 0.0-1.0 [facility]cosIM GRANULOCYTES %2018-09-22 05:21:00* Test Item Value Reference Range Interpretation Comments IM GRANULOCYTES % (test code = IM GRANULOCYTES %) 1.2 0.0- 1.0 H [facility]cosNeutrophils # (Auto)2018-09-22 05:21:00* Test Item Value Reference Range Interpretation Comments Neutrophils # (Auto) (test code = 751-8) 4.3 2.1-6.9 [facility]cosLymphocytes # (Auto)2018-09-22 05:21:00* Test Item Value Reference Range Interpretation Comments Lymphocytes # (Auto) (test code = 32302-6) 1.6 1.0-3.2 [facility]cosMonocytes # (Auto)2018-09-22 05:21:00* Test Item Value Reference Range Interpretation Comments Monocytes # (Auto) (test code = 742-7) 0.7 0.2-0.8 [facility]cosEosinophils # (Auto)2018-09-22 05:21:00* Test Item Value Reference Range Interpretation Comments Eosinophils # (Auto) (test code = 711-2) 0.1 0.0-0.4 [facility]Basophils # (Auto)2018-09-22 05:21:00* Test Item Value Reference Range Interpretation Comments Basophils # (Auto) (test code = 704-7) 0.1 0.0-0.1 [facility] MarcosAbsolute Immature Granulocyte (auto 2018-09-22 05:21:00* Test Item Value Reference Range Interpretation Comments Absolute Immature Granulocyte (auto (dayron t code = Absolute Immature Granulocyte (auto) 0.08 0-0.1 [facility]cosCHEST 2 RMGQV6992-77-03 20:13:00 [place] [address] Patient Name: MARIANNA GREGORIO MR #: [id number] : 1945 Age/Sex: 72/F Req #: [id number] Adm Physician: FAIZA FISCHER MD Ordered by: ANKUR CEBALLOS, ALYSSA CEBALLOS Report #: [id number] Location: [facility] Room/Bed: [place] [address] Procedure: [id number] D X/CHEST 2 VIEWS Exam Date: Exam [...] 09/21/182019 COPY TO: ALYSSA PASCUAL Urine Random Pxwtag1321-67-38 14:19:00 * Test Item Value Reference Range Interpretation Comments Urine Random Sodium (test code = 2955-3) 96 [facility] MarcosUrine Random Dusvop0036-72-52 14:19:00* Test Item Value Reference Range Interpretation Comments Urine Random Sodium (test code = 2955-3) 96 [facility] MarcosUric Lhgh9431-02-45 14:15:00* Test Item Value Reference Range Interpretation Comments Uric Acid (test code = 3084-1) 3.4 2.6-8.0 [facility] MarcosUric Aszj0171-11-49 14:15:00* Test Item Value Reference Range Interpretation Comments Uric Acid (test code = 3084-1) 3.4 2.6-8.0 [facility] MarcosUrine VVX2736-05-02 14:08:00* Test Item Value Reference Range Interpretation Comments Urine WBC (test code = 5821-4) NONE 0-5 [facility] MarcosUrine ULW7542-48-25 14:08:00* Test Item Value Reference Range Interpretation Comments Urine RBC (test code = 24633-4) NONE 0-5 [facility] MarcosUrine Lemhgjpj2638-68-99 14:08:00* Test Item Value Reference Range Interpretation Comments Urine Bacteria (test code = 87986-7) NONE NONE [facility] MarcosUrine Epithelial Ivfkv8509-82-66 14:08:00 * Test Item Value Reference Range Interpretation Comments Urine Epithelial Cells (test code = 91777-1) FEW NONE [facility]cosUrine Amorphous Rtxdptej1276-65-70 14:08:00* Test Item Value Reference Range Interpretation Comments Urine Amorphous Sediment (test code = 8246-1) MANY FEW H [facility] MarcosUrine BEA3243-78-99 14:08:00* Test Item Value Reference Range Interpretation Comments Urine WBC (test code = 5821-4) NONE 0-5 [facility]cosUrine HLW0850-70-63 14:08:00* Test Item Value Reference Range Interpretation Comments Urine RBC (test code = 20934-8) NONE 0-5 [facility]cosUrine Pkutdbtl5989-71-99 14:08:00* Test Item Value Reference Range Interpretation Comments Urine Bacteria (test code = 81020-6) NONE NONE [facility]cosUrine Epithelial Sfxla6805-52-62 14:08:00 * Test Item Value Reference Range Interpretation Comments Urine Epithelial Cells (test code = 23206-5) FEW NONE [facility]cosUrine Amorphous Jmrztvpa9137-55-58 14:08:00* Test Item Value Reference Range Interpretation Comments Urine Amorphous Sediment (test code = 8246-1) MANY FEW H [facility]cosUrine Kblpf7008-38-06 13:55:00* Test Item Value Reference Range Interpretation Comments Urine Color (test code = 5778-6) YELLOW YELLOW [facility]cosUrine Olsgyzb5127-21-18 13:55:00* Test Item Value Reference Range Interpretation Comments Urine Clarity (test code = 57255-0) SL CLOUDY CLEAR [facility]cosUrine Specific Lciayjo8923-20-03 13:55:00 * Test Item Value Reference Range Interpretation Comments Urine Specific [place] (test code = 5811-5) 1.010 1.010-1.02 5 [facility]cosUrine lL7200-17-66 13:55:00* Test Item Value Reference Range Interpretation Comments Urine pH (test code = 93667-7) 8 5-7 [facility] Leukocyte Ldibbegm6134-02-21 13:55:00* Test Item Value Reference Range Interpretation Comments Urine Leukocyte Esterase (test code = 81588-9) NEGATIVE NEGATIV E [facility] Bftufay6128-15-56 13:55:00* Test Item Value Reference Range Interpretation Comments Urine Nitrite (test code = 64550-3) NEGATIVE NEGATIVE [facility] Juuioqf3671-70-88 13:55:00* Test Item Value Reference Range Interpretation Comments Urine Protein (test code = 73771-9) NEGATIVE NEGATIVE [facility] Glucose (UA)2018-09-21 13:55:00* Test Item Value Reference Range Interpretation Comments Urine Glucose (UA) (test code = 14217-9) NEGATIVE NEGATIVE [facility] Bymsodd2560-03-46 13:55:00* Test Item Value Reference Range Interpretation Comments Urine Ketones (test code = 73535-6) TRACE NEGATIVE H [facility] Llxufkserjvl8675-07-46 13:55:00* Test Item Value Reference Range Interpretation Comments Urine Urobilinogen (test code = 03232-7) 0.2 0.2-1 [facility] Mqojffobj8977-44-12 13:55:00* Test Item Value Reference Range Interpretation Comments Urine Bilirubin (test code = 1977-8) NEGATIVE NEGATIVE [facility] Ubvhw6472-69-62 13:55:00* Test Item Value Reference Range Interpretation Comments Urine Blood (test code = 23974-7) NEGATIVE NEGATIVE [facility] Opebj0335-12-42 13:55:00* Test Item Value Reference Range Interpretation Comments Urine Color (test code = 5778-6) YELLOW YELLOW [facility]cosUrine Mofzsit7221-02-95 13:55:00* Test Item Value Reference Range Interpretation Comments Urine Clarity (test code = 01343-3) SL CLOUDY CLEAR [facility] Specific Biiqkpx3549-93-33 13:55:00 * Test Item Value Reference Range Interpretation Comments Urine Specific [place] (test code = 5811-5) 1.010 1.010-1.02 5 [facility]cosUrine uR4419-78-90 13:55:00* Test Item Value Reference Range Interpretation Comments Urine pH (test code = 88375-0) 8 5-7 [facility] Leukocyte Ucbfiotr2909-31-92 13:55:00* Test Item Value Reference Range Interpretation Comments Urine Leukocyte Esterase (test code = 85770-7) NEGATIVE NEGATIV E [facility] Aobcddx0370-08-66 13:55:00* Test Item Value Reference Range Interpretation Comments Urine Nitrite (test code = 50017-6) NEGATIVE NEGATIVE [facility]cosUrine Oyqigzt1598-20-98 13:55:00* Test Item Value Reference Range Interpretation Comments Urine Protein (test code = 22656-4) NEGATIVE NEGATIVE [facility] Glucose (UA)2018-09-21 13:55:00* Test Item Value Reference Range Interpretation Comments Urine Glucose (UA) (test code = 35370-9) NEGATIVE NEGATIVE [facility] Mlptgwy4081-27-40 13:55:00* Test Item Value Reference Range Interpretation Comments Urine Ketones (test code = 83107-4) TRACE NEGATIVE H [facility] Oyxwtnmitlgu3168-40-90 13:55:00* Test Item Value Reference Range Interpretation Comments Urine Urobilinogen (test code = 42142-6) 0.2 0.2-1 [facility] Qsvjnpais1375-36-21 13:55:00* Test Item Value Reference Range Interpretation Comments Urine Bilirubin (test code = 1977-8) NEGATIVE NEGATIVE [facility]cosU[facility] Xavdr7104-73-94 13:55:00* Test Item Value Reference Range Interpretation Comments Urine Blood (test code = 28450-6) NEGATIVE NEGATIVE [facility] MarcosFree Thyroxine Lglmf6327-17-10 10:27:00* Test Item Value Reference Range Interpretation Comments Free Thyroxine Index (test code = 23706-8) 2.3995 1.4-3.8 [facility]cosThyroxine (T4)2018-09-21 10:27:00* Test Item Value Reference Range Interpretation Comments Thyroxine (T4) (test code = 3026-2) 8.02 4.5-10.9 Our current method for Total T4 is not recommended for use as the only marker fo r evaluating patients for thyroid disorders.[facility]cosTriiodothyronine (T3) Lbdgxg8785-17-25 10:27:00* Test Item Value Reference Range Interpretation Comments Triiodothyronine (T3) Uptake (test code = 3050-2) 29.92 22.5 -37.0 [facility] MarcosThyroid Stimulating Hormone (TSH) 2018-09-21 10:27:00* Test Item Value Reference Range Interpretation Comments Thyroid Stimulating Hormone (TSH) (test code = 13863-9) 1.775 0.350-4.940 [facility]cosFree Thyroxine Iyguj7352-60-57 10:27:00* Test Item Value Reference Range Interpretation Comments Free Thyroxine Index (test code = 86934-9) 2.3995 1.4-3.8 [facility]cosThyroxine (T4)2018-09-21 10:27:00* Test Item Value Reference Range Interpretation Comments Thyroxine (T4) (test code = 3026-2) 8.02 4.5-10.9 Our current method for Total T4 is not recommended for use as the only marker fo r evaluating patients for thyroid disorders.[facility]cosTriiodothyronine (T3) Hxhsqz7536-10-38 10:27:00* Test Item Value Reference Range Interpretation Comments Triiodothyronine (T3) Uptake (test code = 3050-2) 29.92 22.5 -37.0 [facility] MarcosThyroid Stimulating Hormone (TSH) 2018-09-21 10:27:00* Test Item Value Reference Range Interpretation Comments Thyroid Stimulating Hormone (TSH) (test code = 77852-2) 1.775 0.350-4.940 [facility]cosABDOMEN-1VIEW (KUB)2018-09-20 23:58:00 [facility] [address] [place], [place] [address] Patient Name: MARIANNA GREGORIO MR #: [id number] : 1945 Age/Sex: 72/F Req #: [id number] Adm Physician: Ordered by: PIETRO GIORDANO MD Report #: [id number] Location: ER Room/Bed: Procedure: [id number] DX/ ABDOMEN-1VIEW (KUB) Exam Date: 09/20/18 Exam Time: 2 338 REPORT STATUS: Signed EXAM: Abdomen 2 Views INDICATION: ABD PAIN [id number] Y ROGER RISON: CT abdomen pelvis [...] GIORDANO MD CT ABDOMEN/PELVIS W 2018-09-16 14:12:00 [place] [address] Patient Name: MARIANNA GREGORIO MR #: [id number] : 1945 Age/Sex: 72/F Req #: [id number] Adm Physician: Ordered by: MAGGIE MCLEOD MD Report #: [id number] Location: CT Room/Bed: Procedure: [id number] CT/C T ABDOMEN/PELVIS W Exam Date: 09/16/18 [...] Transcribed By: JOSE on 1421 COPY TO: AMGGIE MCLEOD MD Blood Urea Vzxnkccg0956-81-89 13:32:00* Test Item Value Reference Range Interpretation Comments Blood Urea Nitrogen (test code = 3094-0) < 5 7-26 L [facility] MarcosCreatinine2019-05-29 13:32:00* Test Item Value Reference Range Interpretation Comments Creatinine (test code = 2160-0) 0.66 0.57-1.11 [facility]cosBUN/Creatinine Wpxny3091-86-78 13:32:00* Test Item Value Reference Range Interpretation Comments BUN/Creatinine Ratio (test code = 3097-3) 8 6-25 [facility] MarcosEstimat Glomerular Filtration Rate 2018-09-16 13:32:00* Test Item Value Reference Range Interpretation Comments Estimat Glomerular Filtration Rate (test code = 781101033) > 60 >60 Ranges were taken from the National Kidney Disease Education Program and the [place] [employer] literature.Reference ranges:60 or greater: Sjcitz13-10 ( for 3 consecutive months): Chronic kidney disease 15 or less: Kidney failureCHI [facility]entonP[facility] 1 VW LFBDCV4213-11-12 12:31:00 [facility] [place] [address] Patient Name: MARIANNA GREGORIO MR #: [id number] : 1945 Age/Sex: 72/F Req #: [id number] Adm Physician: Ordered by: CATRACHITO VERA MD Report #: [id number] Location: OR Room/Bed: Procedure: [id number] DX/ SPINE 1 VW LUMBAR Exam Date: [...] 1233 COPY TO: CATRACHITO VERA MD Sodium Vlqrt9678-70-76 08:38:00* Test Item Value Reference Range Interpretation Comments Sodium Level (test code = 2951-2) 130 136-145 L [facility]assium Baqpp9768-60-83 08:38:00* Test Item Value Reference Range Interpretation Comments Potassium Level (test code = 2823-3) 3.1 3.5-5.1 L [facility]cosChloride Dvwlq0351-59-62 08:38:00* Test Item Value Reference Range Interpretation Comments Chloride Level (test code = 2075-0) 90 98-107 L [facility]cosCarbon Dioxide Gmpjn1499-34-66 08:38:00* Test Item Value Reference Range Interpretation Comments Carbon Dioxide Level (test code = 2028-9) 28 22-29 [facility]cosAnion Inb1383-74-00 08:38:00* Test Item Value Reference Range Interpretation Comments Anion Gap (test code = 31705-2) 15.1 8-16 [facility]cosBlood Urea Ygvneonn9065-08-59 08:38:00* Test Item Value Reference Range Interpretation Comments Blood Urea Nitrogen (test code = 3094-0) 7 7-26 [facility]cosCreatinine2019-05-02 08:38:00* Test Item Value Reference Range Interpretation Comments Creatinine (test code = 2160-0) 0.72 0.57-1.11 [facility]BUN/Creatinine Bavcg1267-82-51 08:38:00* Test Item Value Reference Range Interpretation Comments BUN/Creatinine Ratio (test code = 3097-3) 10 6-25 [facility] MarcosEstimat Glomerular Filtration Rate 2018-08-20 08:38:00* Test Item Value Reference Range Interpretation Comments Estimat Glomerular Filtration Rate (test code = 076159713) > 60 >60 Ranges were taken from the National Kidney Disease Education Program and the [facility] literature.Reference ranges:60 or greater: Uponcb88-12 ( for 3 consecutive months): Chronic kidney disease 15 or less: Kidney failureChristus [facility] – San MarcosGlucose Uazxp7712-26-56 08:38:00* Test Item Value Reference Range Interpretation Comments Glucose Level (test code = GLJ6126) 101 74-118 [facility]cosCalcium Fcekb2562-07-81 08:38:00* Test Item Value Reference Range Interpretation Comments Calcium Level (test code = 82198-5) 10.4 8.4-10.2 [facility] Cwxrt5864-33-58 08:38:00* Test Item Value Reference Range Interpretation Comments Sodium Level (test code = 2951-2) 130 136-145 L [facility]cosPotassium Miiem5244-05-97 08:38:00* Test Item Value Reference Range Interpretation Comments Potassium Level (test code = 2823-3) 3.1 3.5-5.1 L [facility]cosChloride Mrhra0589-30-30 08:38:00* Test Item Value Reference Range Interpretation Comments Chloride Level (test code = 2075-0) 90 98-107 L [facility]cosCarbon Dioxide Nxvmy0783-43-37 08:38:00* Test Item Value Reference Range Interpretation Comments Carbon Dioxide Level (test code = 2028-9) 28 22-29 [facility] MarcosAnion Lfh2691-74-71 08:38:00* Test Item Value Reference Range Interpretation Comments Anion Gap (test code = 39790-0) 15.1 8-16 [facility] MarcosGlucose Rtmis0879-94-61 08:38:00* Test Item Value Reference Range Interpretation Comments Glucose Level (test code = LXQ2806) 101 74-118 [facility]cosCalcium Ektol4500-92-18 08:38:00* Test Item Value Reference Range Interpretation Comments Calcium Level (test code = 75782-8) 10.4 8.4-10.2 H [facility] MarcosCHEST 2 QVUCT5212-70-08 14:00:00 [facility] [address] [place] [address] Patient Name: MARIANNA GREGORIO MR #: [id number] : 1945 Age/Sex: 72/F Req #: [id number] Adm Physician: Ordered by: CATRACHITO VERA MD Report #: [id number] Location: OR Room/Bed: Procedure: [id number] DX/ CHEST 2 VIEWS Exam Date: 08/19/18 [...] 1401 COPY TO: CATRACHITO VERA MD Prothrombin Hqbg6264-49-27 13:51:00* Test Item Value Reference Range Interpretation Comments Prothrombin Time (test code = 5902-2) 13.3 11.9-14.5 [facility] MarcosProthromb Time International Ratio 2018-08-19 13:51:00* Test Item Value Reference Range Interpretation Comments Prothromb Time International Ratio (test code = 6301-6) 0.96 Oral Anticoagulant Therapy INR Values:1. Low Intensity Therapy 1.5 - 2.02 . Moderate Intensity Therapy 2.0 - 3.03. High Intensity Therapy(1) 2.5 - 3. 54. High Intensity Therapy(2) 3.0 - 4.05. Panic Value INR > 5.0 [facility]cosActivated Partial Thromboplast Time 2018-08-19 13:51:00* Test Item Value Reference Range Interpretation Comments Activated Partial Thromboplast Time (test code = 24265-6) 32.7 23.8-35.5 [facility]cosProthrombin Ycow9758-86-29 13:51:00* Test Item Value Reference Range Interpretation Comments Prothrombin Time (test code = 5902-2) 13.3 11.9-14.5 [facility]cosProthromb Time International Ratio 2018-08-19 13:51:00* Test Item Value Reference Range Interpretation Comments Prothromb Time International Ratio (test code = 6301-6) 0.96 Oral Anticoagulant Therapy INR Values:1. Low Intensity Therapy 1.5 - 2.02 . Moderate Intensity Therapy 2.0 - 3.03. High Intensity Therapy(1) 2.5 - 3. 54. High Intensity Therapy(2) 3.0 - 4.05. Panic Value INR > 5.0 [facility]cosActivated Partial Thromboplast Time 2018-08-19 13:51:00* Test Item Value Reference Range Interpretation Comments Activated Partial Thromboplast Time (test code = 16768-0) 32.7 23.8-35.5 [facility]cosActivated Partial Thromboplast Time 2018-08-19 13:51:00* Test Item Value Reference Range Interpretation Comments Activated Partial Thromboplast Time (test code = 04849-6) 32.7 23.8-35.5 [facility]cosActivated Partial Thromboplast Time 2018-08-19 13:51:00* Test Item Value Reference Range Interpretation Comments Activated Partial Thromboplast Time (test code = 03847-5) 32.7 23.8-35.5 [facility]cosWhite Blood Jumfj0576-02-33 13:30:00* Test Item Value Reference Range Interpretation Comments White Blood Count (test code = 6690-2) 11.16 4.8-10.8 H [facility] MarcosRed Blood Sfgge5006-42-74 13:30:00* Test Item Value Reference Range Interpretation Comments Red Blood Count (test code = 789-8) 4.47 3.6-5.1 [facility]cosHemoglobin2019-05-01 13:30:00* Test Item Value Reference Range Interpretation Comments Hemoglobin (test code = 09270-1) 14.4 12.0-16.0 [facility]cosHematocrit2019-05-01 13:30:00* Test Item Value Reference Range Interpretation Comments Hematocrit (test code = 4544-3) 40.3 34.2-44.1 [facility] MarcosMean Corpuscular Rqviim0758-88-91 13:30:00* Test Item Value Reference Range Interpretation Comments Mean Corpuscular Volume (test code = 787-2) 90.2 81-99 [facility] MarcosMean Corpuscular Ycruvgkivg1217-31-15 13:30:00* Test Item Value Reference Range Interpretation Comments Mean Corpuscular Hemoglobin (test code = 785-6) 32.2 28-32 [facility] Corpuscular Hemoglobin Concent 2018-08-19 13:30:00* Test Item Value Reference Range Interpretation Comments Mean Corpuscular Hemoglobin Concent (test code = 786-4) 35.7 31-35 H [facility]cosRed Cell Distribution Thpgx3615-38-31 13:30:00* Test Item Value Reference Range Interpretation Comments Red Cell Distribution Width (test code = 28956-2) 13.0 11.7 -14.4 [facility] MarcosPlatelet Fgaho4105-15-91 13:30:00* Test Item Value Reference Range Interpretation Comments Platelet Count (test code = 777-3) 297 140-360 [facility] MarcosNeutrophils (%) (Auto)2018-08-19 13:30:00 * Test Item Value Reference Range Interpretation Comments Neutrophils (%) (Auto) (test code = 34409-5) 81.5 38.7-80.0 H [facility] MarcosLymphocytes (%) (Auto)2018-08-19 13:30:00 * Test Item Value Reference Range Interpretation Comments Lymphocytes (%) (Auto) (test code = 736-9) 8.2 18.0-39.1 L [facility]cosMonocytes (%) (Auto)2018-08-19 13:30:00* Test Item Value Reference Range Interpretation Comments Monocytes (%) (Auto) (test code = 5905-5) 9.0 4.4-11.3 [facility]cosEosinophils (%) (Auto)2018-08-19 13:30:00 * Test Item Value Reference Range Interpretation Comments Eosinophils (%) (Auto) (test code = 713-8) 0.3 0.0-6.0 [facility]cosBasophils (%) (Auto)2018-08-19 13:30:00* Test Item Value Reference Range Interpretation Comments Basophils (%) (Auto) (test code = 706-2) 0.4 0.0-1.0 [facility] MarcosIM GRANULOCYTES %2018-08-19 13:30:00* Test Item Value Reference Range Interpretation Comments IM GRANULOCYTES % (test code = IM GRANULOCYTES %) 0.6 0.0- 1.0 [facility]cosNeutrophils # (Auto)2018-08-19 13:30:00* Test Item Value Reference Range Interpretation Comments Neutrophils # (Auto) (test code = 751-8) 9.1 2.1-6.9 H [facility]cosLymphocytes # (Auto)2018-08-19 13:30:00* Test Item Value Reference Range Interpretation Comments Lymphocytes # (Auto) (test code = 23540-3) 0.9 1.0-3.2 L [facility]cosMonocytes # (Auto)2018-08-19 13:30:00* Test Item Value Reference Range Interpretation Comments Monocytes # (Auto) (test code = 742-7) 1.0 0.2-0.8 H [facility]cosEosinophils # (Auto)2018-08-19 13:30:00* Test Item Value Reference Range Interpretation Comments Eosinophils # (Auto) (test code = 711-2) 0.0 0.0-0.4 [facility]Basophils # (Auto)2018-08-19 13:30:00* Test Item Value Reference Range Interpretation Comments Basophils # (Auto) (test code = 704-7) 0.1 0.0-0.1 [facility] MarcosAbsolute Immature Granulocyte (auto 2018-08-19 13:30:00* Test Item Value Reference Range Interpretation Comments Absolute Immature Granulocyte (auto (dayron t code = Absolute Immature Granulocyte (auto) 0.07 0-0.1 [facility]cosWhite Blood Vuqly5636-45-19 13:30:00* Test Item Value Reference Range Interpretation Comments White Blood Count (test code = 6690-2) 11.16 4.8-10.8 H [facility]cosRed Blood Tkjvy8206-24-83 13:30:00* Test Item Value Reference Range Interpretation Comments Red Blood Count (test code = 789-8) 4.47 3.6-5.1 [facility]cosHemoglobin2019-05-01 13:30:00* Test Item Value Reference Range Interpretation Comments Hemoglobin (test code = 44893-3) 14.4 12.0-16.0 [facility] MarcosHematocrit2019-05-01 13:30:00* Test Item Value Reference Range Interpretation Comments Hematocrit (test code = 4544-3) 40.3 34.2-44.1 [facility] MarcosMean Corpuscular Llwuyr8881-27-54 13:30:00* Test Item Value Reference Range Interpretation Comments Mean Corpuscular Volume (test code = 787-2) 90.2 81-99 [facility] MarcosMean Corpuscular Inbasmyejh5325-62-16 13:30:00* Test Item Value Reference Range Interpretation Comments Mean Corpuscular Hemoglobin (test code = 785-6) 32.2 28-32 H [facility] MarcosMean Corpuscular Hemoglobin Concent 2018-08-19 13:30:00* Test Item Value Reference Range Interpretation Comments Mean Corpuscular Hemoglobin Concent (test code = 786-4) 35.7 31-35 H [facility] MarcosRed Cell Distribution Uorvx0309-29-42 13:30:00* Test Item Value Reference Range Interpretation Comments Red Cell Distribution Width (test code = 15037-2) 13.0 11.7 -14.4 [facility] MarcosPlatelet Gtvdu8896-04-56 13:30:00* Test Item Value Reference Range Interpretation Comments Platelet Count (test code = 777-3) 297 140-360 [facility] MarcosNeutrophils (%) (Auto)2018-08-19 13:30:00 * Test Item Value Reference Range Interpretation Comments Neutrophils (%) (Auto) (test code = 79399-1) 81.5 38.7-80.0 H [facility] MarcosLymphocytes (%) (Auto)2018-08-19 13:30:00 * Test Item Value Reference Range Interpretation Comments Lymphocytes (%) (Auto) (test code = 736-9) 8.2 18.0-39.1 L [facility]cosMonocytes (%) (Auto)2018-08-19 13:30:00* Test Item Value Reference Range Interpretation Comments Monocytes (%) (Auto) (test code = 5905-5) 9.0 4.4-11.3 [facility]cosEosinophils (%) (Auto)2018-08-19 13:30:00 * Test Item Value Reference Range Interpretation Comments Eosinophils (%) (Auto) (test code = 713-8) 0.3 0.0-6.0 [facility]Basophils (%) (Auto)2018-08-19 13:30:00* Test Item Value Reference Range Interpretation Comments Basophils (%) (Auto) (test code = 706-2) 0.4 0.0-1.0 [facility] MarcosIM GRANULOCYTES %2018-08-19 13:30:00* Test Item Value Reference Range Interpretation Comments IM GRANULOCYTES % (test code = IM GRANULOCYTES %) 0.6 0.0- 1.0 [facility]cosNeutrophils # (Auto)2018-08-19 13:30:00* Test Item Value Reference Range Interpretation Comments Neutrophils # (Auto) (test code = 751-8) 9.1 2.1-6.9 H [facility] MarcosLymphocytes # (Auto)2018-08-19 13:30:00* Test Item Value Reference Range Interpretation Comments Lymphocytes # (Auto) (test code = 01076-1) 0.9 1.0-3.2 L [facility]cosMonocytes # (Auto)2018-08-19 13:30:00* Test Item Value Reference Range Interpretation Comments Monocytes # (Auto) (test code = 742-7) 1.0 0.2-0.8 H [facility]cosEosinophils # (Auto)2018-08-19 13:30:00* Test Item Value Reference Range Interpretation Comments Eosinophils # (Auto) (test code = 711-2) 0.0 0.0-0.4 [facility]cosBasophils # (Auto)2018-08-19 13:30:00* Test Item Value Reference Range Interpretation Comments Basophils # (Auto) (test code = 704-7) 0.1 0.0-0.1 [facility] MarcosAbsolute Immature Granulocyte (auto 2018-08-19 13:30:00* Test Item Value Reference Range Interpretation Comments Absolute Immature Granulocyte (auto (dayron t code = Absolute Immature Granulocyte (auto) 0.07 0-0.1 [facility]
== END 2020-02-22 15:42 | disposition home or self-care (01) | DRG 177 ==
LOC: ER 12:41 → ERHOLD 14:43 → IMCU 17:56
PROVIDERS: ADMIT Internal Medicine; ATTEND Internal Medicine
PROC: XW0DXF5 Introduction of Other New Technology Therapeutic Substance into Mouth and Pharynx, External Approach, New Technology Group 5 (ICD-10-PCS; principal; 2020-02-14)
DX: U07.1 COVID-19 (principal); J12.89 Other viral pneumonia; J96.01 Acute respiratory failure with hypoxia; J15.9 Unspecified bacterial pneumonia; I47.2 Ventricular tachycardia; I10 Essential (primary) hypertension; E03.9 Hypothyroidism, unspecified; K21.9 Gastro-esophageal reflux disease without esophagitis; Z90.49 Acquired absence of other specified parts of digestive tract; Z87.891 Personal history of nicotine dependence; Z88.8 Allergy status to other drugs, medicaments and biological substances; E87.6 Hypokalemia; R79.89 Other specified abnormal findings of blood chemistry; E88.09 Other disorders of plasma-protein metabolism, not elsewhere classified; R59.1 Generalized enlarged lymph nodes
CPT/HCPCS: 36415; 71045; 71260; 76700; 80053; 80076; 82550; 82553; 83735; 84478; 84484; 85025; 85384; 93005; 93306; 99284; J0696; J1100; J1650; J1885; J3480; J7050; J7512; Q9967

== ENCOUNTER → 2023-12-12 | Day surgery (SDC) | payer MEDICARE, OTHER ==
[2023-12-10 13:38] LABS: BASOPHILS # (AUTO) 0.1 (0.0-0.1); BASOPHILS % 1.6 % (0.0-1.0); EOSINOPHILS # (AUTO) 0.6 (0.0-0.4); EOSINOPHILS % 7.1 % (0.0-6.0); HEMATOCRIT 36.7 % (34.2-44.1); HEMOGLOBIN 11.8 g/dL (12.0-16.0); LYMPHOCYTES # (AUTO) 1.3 (1.0-3.2); LYMPHOCYTES % 15.9 % (18.0-39.1); MEAN CORPUSCULAR HEMOGLOBIN 30.3 pg (28-32); MEAN CORPUSCULAR HGB CONC 32.2 g/dL (31-35); MEAN CORPUSCULAR VOLUME 94.3 fL (81-99); MONOCYTES # (AUTO) 0.8 (0.2-0.8); MONOCYTES % 9.4 % (4.4-11.3); NEUTROPHILS # (AUTO) 5.4 (2.1-6.9); NEUTROPHILS % 65.6 % (38.7-80.0); PLATELET COUNT 254 x10e3/uL (140-360); RED BLOOD COUNT 3.89 x10e6/uL (3.6-5.1); RED CELL DISTRIBUTION WIDTH 14.6 % (11.7-14.4); WHITE BLOOD COUNT 8.28 x10e3/uL (4.8-10.8)
[~2023-12-12] MED LIST changes: +AMLODIPINE BESY10 MG PO; +ASPIRIN81 MG PO; +CARVEDILOL3.125 MG PO; +CELEBREX100 MG PO; +HYDRALAZINE HCL50 MG PO; +HYOSCYAMINE SULFATE 0.5 MG/ML INJ ONE; +LEVOFLOXACIN250 MG PO; +LIPITOR20 MG PO; +METOPROLOL SUCC25 MG; +MYRBETRIQ25 MG PO; +OXYBUTYNIN CHLOR5 MG PO; +PROPOFOL IV EMULSION 100 ML IV ONE; +REGLAN10 MG PO
[2023-12-12] MEDS: LACTATED RINGER'S 1,000 ML ONE (08:21)
[2023-12-12 11:16] VITALS: TEMP 97.3
[2023-12-12 11:45] VITALS: BP 155/90; PULSE 84; RESP 16; O2SAT 94
== END | disposition home or self-care (01) ==
LOC: OR 07:24
PROVIDERS: ATTEND Internal Medicine Gastroenterology
DX: Z12.11 Encounter for screening for malignant neoplasm of colon (principal); D12.2 Benign neoplasm of ascending colon; K57.30 Diverticulosis of large intestine without perforation or abscess without bleeding; Z80.0 Family history of malignant neoplasm of digestive organs; K21.00 Gastro-esophageal reflux disease with esophagitis, without bleeding; K29.50 Unspecified chronic gastritis without bleeding; K31.89 Other diseases of stomach and duodenum; K44.9 Diaphragmatic hernia without obstruction or gangrene; K63.89 Other specified diseases of intestine; I10 Essential (primary) hypertension; I25.10 Atherosclerotic heart disease of native coronary artery without angina pectoris; Z95.5 Presence of coronary angioplasty implant and graft; I25.2 Old myocardial infarction; E78.5 Hyperlipidemia, unspecified; Z87.891 Personal history of nicotine dependence; E03.9 Hypothyroidism, unspecified; M48.00 Spinal stenosis, site unspecified; M26.649 Arthritis of unspecified temporomandibular joint; Z01.810 Encounter for preprocedural cardiovascular examination; Z01.812 Encounter for preprocedural laboratory examination; Z86.16 Personal history of COVID-19; Z87.01 Personal history of pneumonia (recurrent)
CPT/HCPCS: 36415; 43239; 45380; 45385; 85025; 88305; 88342; 93005; J1980; J2470; J2704; J7121; 45378